=== PATIENT | female | born 1955 | race Caucasian/White ===

== ENCOUNTER → 2017-05-24 11:17 | Outpatient (CLI) | payer MEDICAID, OTHER, SELFPAY ==
[2017-05-24 14:48] LABS: Vitamin D,25 Hydroxy 20.1 ng/mL (29.95-100.01)
[2017-05-24 14:49] LABS: Anion Gap 6 (5-15); BUN 16 mg/dL (7-18); BUN/Creat Ratio 19.2 RATIO (10-20); Calcium,Total 9.5 mg/dL (8.5-10.1); Chloride 107 mmol/L (98-107); Cholesterol 210 mg/dL (200); Creatinine, Serum 0.83 mg/dL (0.55-1.02); EST Glomerular Filtration Rate 74 mL/min (>60); Est Glom Filt Rate - Afr Amer 89 mL/min (>60); Glucose 84 mg/dL (74-106); High Density Lipoprotein 104 mg/dL; Potassium 5.2 mmol/L (3.5-5.1); Sodium Level 142 mmol/L (136-145); Thyroid Stim Hormone (TSH) 3.02 uIU/mL (0.358-3.74); Triglycerides 99 mg/dL; Very Low Density Lipoprotein 20 mg/dL (5-40)
[2017-05-24 14:50] LABS: Absolute Lymphocyte Count 1.66 X10^3/ul (0.83-4.51); Absolute Neutrophil Count 4.1 X10^3/uL (2.0-7.7); Basophil# 0.04 X10^3/uL; Basophil% 0.6 % (0-1); Eosinophil# 0.29 X10^3/uL; Eosinophils% 4.3 % (0-5); Hematocrit 39.2 % (37-47); Hemoglobin 12.3 g/dl (12.0-15.0); Lymphocyte # 1.66 X10^3/ul (4.0); Lymphocyte % 24.9 % (19-41); Mean Corp Hgb Conc 31.4 g/gl (32-36); Mean Corpuscular Hgb 28.8 pg (27.0-32.0); Mean Corpuscular Volume 91.8 fL (81-99); Mean Platelet Vol. 12.1 fl (6.2-12.0); Monocyte# 0.58 X10^3/uL; Monocyte% 8.7 % (0-10); Neutrophil % 61.4 % (47-70); Platelet Count 235 K/mm3 (150-450); RBC Distribution Width CV 13.4 % (11.6-14.6); RBC Distribution Width SD 44.1 fl (35.1-43.9); Red Blood Count 4.27 M/mm3 (4.2-5.4); White Blood Count 6.7 K/mm3 (4.4-11.0)
[2017-05-24 14:58] LABS: POSITIVE COUNT NO; POSITIVE DIFFERENTIAL NO; POSITIVE MORPHOLOGY NO
== END ==
PROVIDERS: Family Provider Family Medicine; Visit Provider Family Medicine
DX: R53.83 Other fatigue (principal)
CPT/HCPCS: 36415; 80048; 80061; 82306; 84443; 85025

== ENCOUNTER → 2017-07-19 11:38 | Outpatient (CLI) | payer OTHER, SELFPAY ==
--- NOTE | 2017-07-19 11:50 | RAD_ITS ---
STUDY: X-RAY - RIGHT KNEE REASON FOR EXAM: Female, 61 years old. Pain. TECHNIQUE: 4 view(s) of the knee. COMPARISON: None. FINDINGS: Normal visualized distal femur. Normal visualized proximal tibia and fibula. Normal proximal tibiofibular articulation. There is no demonstrated fracture. There is moderate to severe degenerative arthrosis of the medial femorotibial compartment with moderate joint space narrowing. There is mild to moderate degenerative arthrosis of the lateral femorotibial compartment. There is severe degenerative arthrosis of the patellofemoral articulation. There is a moderate volume joint effusion. The soft tissue structures are unremarkable. RAD/Knee 4 or More Views IMPRESSION: No acute fracture or dislocation. Moderate to severe degenerative changes. Joint effusion. Electronically Signed: Rojelio Murray MD at 13:20 EDT , Service support ,
== END ==
PROVIDERS: Family Provider Family Medicine; PCP Family Medicine; Visit Provider Family Medicine
DX: M25.561 Pain in right knee (principal)
CPT/HCPCS: 73564

== ENCOUNTER → 2017-12-01 11:04 | Outpatient (CLI) | payer OTHER, SELFPAY ==
[2017-12-01 12:38] LABS: Vitamin D,25 Hydroxy 22.2 ng/mL (29.95-100.01)
[2017-12-01 12:48] LABS: Anion Gap 8 (5-15); BUN 17 mg/dL (7-18); BUN/Creat Ratio 21.6 RATIO (10-20); Calcium,Total 9.8 mg/dL (8.5-10.1); Chloride 107 mmol/L (98-107); Cholesterol 197 mg/dL (200); Creatinine, Serum 0.79 mg/dL (0.55-1.02); EST Glomerular Filtration Rate 79 mL/min (>60); Est Glom Filt Rate - Afr Amer 95 mL/min (>60); Glucose 84 mg/dL (74-106); High Density Lipoprotein 108 mg/dL; Potassium 4.2 mmol/L (3.5-5.1); Sodium Level 141 mmol/L (136-145); Triglycerides 73 mg/dL; Very Low Density Lipoprotein 15 mg/dL (5-40)
== END ==
PROVIDERS: Family Provider Family Medicine; PCP Family Medicine; Visit Provider Family Medicine
DX: E55.9 Vitamin D deficiency, unspecified (principal); I10 Essential (primary) hypertension
CPT/HCPCS: 36415; 80048; 80061; 82306

== ENCOUNTER → 2018-05-31 10:57 | Outpatient (CLI) | payer OTHER, SELFPAY ==
[2013-12-16 11:15] VITALS: BMI 32.5
[2018-05-31 12:57] LABS: Vitamin D,25 Hydroxy 33.4 ng/mL (29.95-100.01)
[2018-05-31 13:01] LABS: BUN 18 mg/dL (7-18); Creatinine, Serum 0.78 mg/dL (0.55-1.02); EST Glomerular Filtration Rate 79 mL/min (>60); Glucose 94 mg/dL (74-106)
[2018-05-31 13:02] LABS: Anion Gap 6 (5-15); Calcium,Total 9.2 mg/dL (8.5-10.1); Chloride 110 mmol/L (98-107); Cholesterol 198 mg/dL (200); Est Glom Filt Rate - Afr Amer 96 mL/min (>60); High Density Lipoprotein 103 mg/dL; Potassium 4.1 mmol/L (3.5-5.1); Sodium Level 142 mmol/L (136-145); Thyroid Stim Hormone (TSH) 3.07 uIU/mL (0.358-3.74); Triglycerides 79 mg/dL; Very Low Density Lipoprotein 16 mg/dL (5-40)
== END ==
PROVIDERS: Family Provider Family Medicine; PCP Family Medicine; Referring Provider Family Medicine; Visit Provider Family Medicine
DX: I10 Essential (primary) hypertension (principal); E55.9 Vitamin D deficiency, unspecified; R61 Generalized hyperhidrosis
CPT/HCPCS: 36415; 80048; 80061; 82306; 84443

== ENCOUNTER → 2018-07-31 | Outpatient (CLI) | payer OTHER, SELFPAY ==
--- NOTE | 2018-07-31 10:37 | NEURO ---
NCS and/or EMG Patient Report Ordering Doctor: Altaf De La Garza DATE OF SERVICE: 07/31/18 This is a left upper extremity nerve conduction study performed on this 62-year-old female with a history of tingling in her left hand for several months. There is a history of carpal tunnel release on the right side. No neck pain. Healthy otherwise without a history of diabetes. Left upper extremity sensory and motor nerve conduction studies performed demonstrating prolongation of the median motor and sensory distal latencies with mild reduction in conduction velocity and mild reduction in amplitude. The ulnar motor and sensory and radial sensory responses are normal. The median and ulnar F-wave latencies are preserved. Impression abnormal nerve conduction study of the left upper extremity consistent with mild to moderate carpal tunnel syndrome but the left wrist.
== END | disposition home or self-care (01) ==
PROVIDERS: Family Provider Family Medicine; PCP Family Medicine; Referring Provider Family Medicine; Visit Provider Family Medicine
DX: R20.0 Anesthesia of skin (principal)
CPT/HCPCS: 95909

== ENCOUNTER → 2019-01-18 15:17 | Outpatient (CLI) | payer OTHER, SELFPAY ==
[2013-12-16 11:15] VITALS: BMI 32.5
[2019-01-18 18:25] LABS: Anion Gap 9 (5-15); BUN 17 mg/dL (7-18); Calcium,Total 9.6 mg/dL (8.5-10.1); Chloride 108 mmol/L (98-107); Cholesterol 192 mg/dL (200); Creatinine, Serum 0.81 mg/dL (0.55-1.02); EST Glomerular Filtration Rate 76 mL/min (>60); Est Glom Filt Rate - Afr Amer 92 mL/min (>60); Glucose 81 mg/dL (74-106); High Density Lipoprotein 110 mg/dL; Potassium 3.9 mmol/L (3.5-5.1); Sodium Level 145 mmol/L (136-145); Triglycerides 79 mg/dL; Very Low Density Lipoprotein 16 mg/dL (5-40)
== END ==
PROVIDERS: Family Provider Family Medicine; PCP Family Medicine; Referring Provider Family Medicine; Visit Provider Family Medicine
DX: I10 Essential (primary) hypertension (principal)
CPT/HCPCS: 36415; 80048; 80061

== ENCOUNTER → 2020-01-13 10:58 | Outpatient (CLI) | payer OTHER, SELFPAY ==
[2013-12-16 11:15] VITALS: BMI 32.5
[2020-01-13 13:23] LABS: Anion Gap 6 (5-15); BUN 19 mg/dL (7-18); BUN/Creat Ratio 23.9 RATIO (10-20); Calcium,Total 9.7 mg/dL (8.5-10.1); Chloride 109 mmol/L (98-107); Cholesterol 206 mg/dL (200); EST Glomerular Filtration Rate 77 mL/min (>60); Est Glom Filt Rate - Afr Amer 93 mL/min (>60); Glucose 90 mg/dL (74-106); High Density Lipoprotein 110 mg/dL; Potassium 4.4 mmol/L (3.5-5.1); Sodium Level 141 mmol/L (136-145); Triglycerides 74 mg/dL; Very Low Density Lipoprotein 15 mg/dL (5-40)
== END ==
PROVIDERS: PCP Family Medicine; Referring Provider Family Medicine; Visit Provider Family Medicine
DX: I10 Essential (primary) hypertension (principal)
CPT/HCPCS: 36415; 80048; 80061

== ENCOUNTER → 2020-10-13 14:32 | Outpatient (CLI) | payer MEDICARE, SELFPAY ==
[2013-12-16 11:15] VITALS: BMI 32.5
--- NOTE | 2020-10-13 14:45 | CT_ITS ---
STUDY: CT SCAN LOWER EXTREMITY RIGHT.[facility] protocol. REASON FOR EXAM: Female, 65 years old. UNILATERAL PRIMARY OSTEO RADIATION DOSAGE (If Supplied By Facility): CTDIvol = ( 18.83 ) mGy, DLP = ( 1246.44 ) mGycm. Individualized dose optimization techniques were used for this CT.? TECHNIQUE: Multiple axial tomographic images of the right lower extremity was performed without intravenous contrast administration. Sagittal and coronal reconstruction was obtained as well. COMPARISON: None. FINDINGS: Imaging of the right hip joint was obtained. No significant joint space narrowing is seen. No bony destruction. Imaging of the right knee joint was obtained. There is a marked degree of joint space narrowing and osteoarthritis involving the medial compartment of the knee joint with marginal spurring of the medial femoral condyle. There is also evidence of marginal spurring along the lateral femoral condyle and lateral tibial plateau. There is evidence of chondrocalcinosis. Prominent degenerative spur is seen along the posterior aspect of the distal femur. Marked degree of joint space narrowing with the spur formation of the patellofemoral joint. There are several well-circumscribed bony densities within the posterior knee joint suggestive of possible loose fragments. Small joint effusion. Imaging of the ankle joint was obtained. No significant abnormality is seen. CT/Extremity Lower without Contra IMPRESSION: Marked degree of the osteoarthritis and degenerative changes of the knee joint as described. Electronically Signed: Matt Bryant MD at 15:39 EDT , Service support ,
== END ==
PROVIDERS: PCP Family Medicine; Referring Provider Orthopaedic Surgery; Visit Provider Orthopaedic Surgery
DX: M17.11 Unilateral primary osteoarthritis, right knee (principal)
CPT/HCPCS: 73700

== ENCOUNTER 2020-11-02 05:28 | Day surgery (SDC) | payer MEDICARE, SELFPAY ==
--- NOTE | 2020-10-22 13:05 | EKG12_ITS ---
Test Reason : PREOP Blood Pressure : / mmHG Vent. Rate : 046 BPM Atrial Rate : 046 BPM P-R Int : 176 ms QRS Dur : 090 ms QT Int : 432 ms P-R-T Axes : 036 -19 000 degrees QTc Int : 378 ms Sinus bradycardia Otherwise normal ECG Confirmed by INGRID THORNTON, JUAN JOSÉ ([id number]), editor magazine CHRISTIAN KIRK ([id number]) on 10/26/2020 8:29:38 AM Referred By: Farshad Archer Confirmed By:JUAN JOSÉ QUINTERO MD
[2020-10-22 14:08] LABS: Hematocrit 38.4 % (37-47); Hemoglobin 12.5 g/dL (12.0-15.0); Mean Corp Hgb Conc 32.6 g/dL (32-36); Mean Corpuscular Hgb 28.9 pg (27.0-32.0); Mean Corpuscular Volume 88.9 fL (81-99); Mean Platelet Vol. 11.8 fl (6.2-12.0); Platelet Count 198 K/mm3 (150-450); RBC Distribution Width CV 13.2 % (11.6-14.6); RBC Distribution Width SD 42.5 fl (35.1-43.9); Red Blood Count 4.32 M/mm3 (4.2-5.4); White Blood Count 5.9 K/mm3 (4.4-11.0)
[2020-10-22 14:31] LABS: Anion Gap 4 (5-15); BUN 17 mg/dL (7-18); Calcium,Total 9.3 mg/dL (8.5-10.1); Chloride 109 mmol/L (98-107); Creatinine, Serum 0.65 mg/dL (0.55-1.02); EST Glomerular Filtration Rate 97 mL/min (>60); Est Glom Filt Rate - Afr Amer 117 mL/min (>60); Glucose 94 mg/dL (74-106); Potassium 4.1 mmol/L (3.5-5.1); Sodium Level 142 mmol/L (136-145)
[2020-11-02] VITALS (14 sets, daily range): BP systolic 126–152; BP diastolic 58–105; PULSE 63–85; RESP 16; TEMP 35.7–36.6; O2SAT 95–100; BMI 33.3
[2020-11-02] MEDS: Gabapentin 600 MG Tablet PO (05:30)
[2020-11-02] MEDS: Lactated Ringers 1,000 ML 100 ML IV ×2 (05:35→09:01)
[2020-11-02] MEDS: Acetaminophen 500 MG Tablet 1000 MG PO ×2 (06:22→14:42)
[2020-11-02 06:31] LABS: Bedside Glucose 142 mg/dL (70-110)
--- NOTE | 2020-11-02 07:30 | KNEE_PTH ---
PATIENT: ELO QU[place] [facility] [id number] AGE/SX: 65/F ROOM: RE11/02/[address]: Dr. Farshad Archer DO : 1955 BED: DIS: 11/02/2020 SPEC #: [id number] RECD: 11/02/20 10:19 STATUS: SAÚL REQ #: [id number] DYANA: 11/02/20 07:[address]: Farshad Archer DEPT: SURGICAL PATHOLOGY RECD BY: Stan Laguna ENTERED: 11/02/20 11:11 SP TYPE: TOTAL KNEE OTHR DR: Dr. Altaf De La Garza MD Tissues: Knee, NOS Procedures: Decalcification bone/plaque Surgery Specimen Level IV HEADER OPERATION: ERAS, total knee replacement robotic arm assist PRE-OP DIAGNOSIS: Primary osteoarthritis right knee TISSUE SUBMITTED: Soft tissue and bone right knee MICROSCOPIC DIAGNOSIS Bone and tissue of right knee, total knee resection: Severe degenerative joint disease. Mild synovial hyperplasia. AM:kia 11/05/2020 MICROSCOPIC DESCRIPTION Slides are reviewed. GROSS DESCRIPTION Received is one container designated bone and soft tissue right knee. The specimen consists of multiple fragments of alarcon-yellow bone measuring in aggregate 8 x 10 x 4 cm. Also in the specimen container are multiple fragments of yellow-white soft tissue measuring in aggregate 5 x 1.5 x 0.5 cm. A number of bony fragments contain articular surfaces consistent with tibial plateau and femoral condyle and displaying prominent osteophyte formation, eburnation, and bone erosion. Barge Loader sections are submitted in two cassettes as follows: 1 - bone after decalcification, 3 - soft tissue. / SJ:kia 11/02/20 TC:5 [facility]: [id number]
[2020-11-02] MEDS: dexAMETHasone 10 MG/ML Vial IV (07:45)
--- NOTE | 2020-11-02 08:49 | OP.PCM_ITS ---
Report of Operation Date of Procedure: 11/02/20 Pre-Operative Diagnosis: OA right knee Post-Operative Diagnosis: same Surgery/Procedure Performed:: Right TKR Description of Surgical Findings:: Report of Operation Date of Procedure: Preoperative Diagnosis: [ ] knee primary osteoarthritis Postoperative Diagnosis: [ ] knee primary osteoarthritis Operation: Robotic Assisted Knee Total Arthroplasty, [ ] knee Surgeon: Dr Farshad Archer DO Junior Software Developer: Kedar Ramirez PA-C Anesthesia: spinal Anesthesiologist: Italo Valentino M.D. Findings: Stable knee with good patella tracking Specimen(s): Bony cuts Complications: No intraoperative complications Estimated Blood Loss: 20 cc IV Fluids: 1400 cc crystalloid Implants Used: 1. Chantelle Triathlon press-fit CR size 5 femur 2. Chantelle Triathlon size 5 tibia 3. 32 mm patella 4. 9 mm CS polyethylene Brief History Operative Indications: [ (65 y/o female) ] with history of [ right ] knee osteoarthrosis with radiographic findings with loss of joint space, osteophyte formation and subchondral sclerosis. Failed conservative measures as mentioned in the H&P. Discussion of total knee arthroplasty as well as risk and benefits were discussed with the patient including but not limited to blood loss, DVTs, PEs, neurovascular damage, general risk of anesthesia including loss of life, and stiffness or instability were also discussed with the patient. Patient demonstrated understanding and was able to sign informed consent. Procedure: On the date of procedure, patient's [ right ] lower extremity was marked in the preoperative area. The patient was then taken back to the operating room where that patient was placed on the table in the supine position. All bony prominences were identified and well-padded. Anesthesia assumed control of the C-spine and airway throughout the remainder of the procedure. A tourniquet was placed on the [ right ] upper thigh and the leg was prepped in a sterile fashion. The surgeon then scrubbed at this time. Upon reentering the room, the [ right ] lower extremity was draped in a standard orthopedic fashion. A timeout was then called and everyone agreed upon the side, the site, the procedure to be performed, patient's identity and antibiotics given. Esmarch bandage was used to exsanguinate the extremity and the tourniquet was placed up to 250 mmHg with the knee in flexion. A midline skin incision was made and a sharp dissection was taken down through skin, subcutaneous tissue and fat. The standard medial parapatellar incision was made and the patella was subluxed laterally. An appropriate deep MCL release was done and the fat pad was resected. Our attention was then directed to the patella. The patella was everted and a flat resection was made. The knee was then flexed up and 2 femoral pins were placed inside the incision and 2 tibial pins were placed outside the incision in the medial tibia bicortically. Once this was completed, the 2 checkpoints in the femur and tibia were placed. Knee was then flexed up and the bony landmarks were registered. Once the was completed, the knee taken through range of motion and manually stressed allowing us to plan for an appropriate tibial cut. The robotic arm was brought into the field sterilely and checkpoint and saw were registered. Based on the patient's deformity, the tibial cut was made in [ 2 degrees varus ]. At this time, the tensioner was then placed in the joint and ligament tension was checked at 90 degrees and full extension. Based on the patient's ligamentous tension, appropriate adjustments were made to the operative plan and ligament releases were done. Once we were happy with our operative plan with balanced flexion and extension gaps, our attention was directed to the femur. The robot was brought into the field sterilely and registered. Posterior condylar cuts, anterior chamfer cuts and anterior cuts were appropriately made for a [ size 5 ] femur. When these were completed, the saws were switched out in the distal femoral and posterior chamfer cuts were made. Protecting the soft tissue throughout this time. A [size 5 ] base plate was selected. The knee was flexed to 90 degrees and soft tissues and posterior osteophytes were removed from the joint. 40 cc of the periarticular injection was injected into the posterior medial corner of the joint. The appropriate trials were then placed on the femur and tibia. A trial polyethylene was trialed to ensure proper balancing and stability of the knee. The appropriate tibial internal rotation was then marked with a bovie. Our attention was then directed to the patella. The lug holes were drilled and the patella trial was placed. Patellar tracking was checked and deemed appropriate. Once we were happy, lug holes were drilled for the femur and trial components were removed. The tibia was subluxed and pinned into place and the keel was punched and drilled appropriately. Final components were verified and opened. The wound was copiously irrigated with normal saline. The components were impacted into place with the tibia, femur and finally the patella. The trial poly component was placed and the knee was placed in full extension. The tracking, alignment and balance were verified and a [ 9 mm CS ] polyethylene component was placed. Once the final components were placed an Irrisept lavage was performed and the wound was copiously irrigated with normal saline solution and the periarticular injection was given. the wound was closed in a layer-lea fashion using #1 vicryl interrupted sutures for the arthrotomy, 2-0 interrupted vicryl suture for the subcuticular layer and abiola for final skin closure. A sterile compressive dressing was then placed. The patient was then awakened from anesthesia, transferred to the rfrankfort and transferred to the PACU for recovery. My physician emergency room physician assistant was a vital part of this case. He was important in appropriate retraction during the case, and protection of soft tissues during bony cuts. His intimate knowledge of the case and my steps aided in safe and expedient completion of the procedure as well as appropriate position of the leg during the case. He was also vital in assisting with closure under my direct supervision. Due to the complexity of this case, robotic arm was used to assist in the surgery to improve accuracy and clinical outcomes. Post-op Plan: DVT ppx; ASA 81 mg BID, thigh high compression stockings Follow up: in office in 2 weeks for wound check PT: to start POD #0 at hospital, outpatient PT should be arranged. Preoperative antibiotic: Ancef 2 grams IV Farshad Archer DO Surgeon: Farshad Archer yeast fermentation attendant: None (k) yeast fermentation attendant: Kedar Ramirez Type of Anesthesia: Spinal Anesthesiologist: Italo Valentino Estimated Blood Loss (mL): 20 cc Fluids Replaced: 1400 cc crystalloid Admit VTE Documentation VTE Present on Admission: No VTE Mechan Device Prophylaxis: SCD's and Thigh High DANIELLE Hose VTE Pharm Prophylaxis ordered?: Yes
--- NOTE | 2020-11-02 09:35 | RAD_ITS ---
INDICATION: POST OPERATIVE -- PORTABLE IN PACU EXAMINATION/TECHNIQUE: X-RAY - RIGHT XR Knee 1 or 2 Views 2 VIEWS COMPARISON: 07/19/2017. FINDINGS: SOFT TISSUES: Prominence of the overlying soft tissues visualized with air in the suprapatellar space and Hoffa''s pad and overlying surgical abiola consistent with postoperative changes. No evidence of suprapatellar effusion is seen. BONES/JOINTS: Unremarkable alignment of the femoral and tibial knee prosthesis. No evidence of surrounding lucency is visualized. No acute fracture or subluxation. No sclerotic or destructive changes observed. RAD/Knee 1 or 2 Views IMPRESSION: Unremarkable alignment of the right knee prosthesis. Electronically Signed: Corwin Leon MD at 10:11 EDT Tel , Service support ,
[2020-11-02] MEDS: Lactated Ringers 1,000 ML 999 ML IV (10:20)
--- NOTE | 2020-11-02 17:36 | SUR.PHASEII ---
Clarified discharge instructions with Dr Archer over phone. Pt to make PT appt for GHADA.
== END 2020-11-02 17:42 ==
LOC: SDC 05:29 → AC 05:30
PROVIDERS: PCP Family Medicine; Referring Provider Orthopaedic Surgery; Visit Provider Orthopaedic Surgery
PROC: 0SRC0JZ Replacement of Right Knee Joint with Synthetic Substitute, Open Approach (ICD-10-PCS; CPT 27447; principal; 2020-11-02 07:00)
DX: M17.11 Unilateral primary osteoarthritis, right knee (principal); M21.161 Varus deformity, not elsewhere classified, right knee; I10 Essential (primary) hypertension; F41.9 Anxiety disorder, unspecified; E78.00 Pure hypercholesterolemia, unspecified; M19.90 Unspecified osteoarthritis, unspecified site; F32.9 Major depressive disorder, single episode, unspecified; E66.9 Obesity, unspecified; Z68.32 Body mass index [BMI] 32.0-32.9, adult; Z79.899 Other long term (current) drug therapy
CPT/HCPCS: 01402; 27447; S2900; 36415; 73560; 80048; 82962; 83735; 85027; 87081; 88305; 88311; 93005; 97162; C1776; J7120; J2405

== ENCOUNTER → 2021-01-11 10:28 | Outpatient (CLI) | payer MEDICARE, SELFPAY ==
[2021-01-11 12:27] LABS: Anion Gap 5 (5-15); BUN 15 mg/dL (7-18); BUN/Creat Ratio 18.3 RATIO (10-20); Calcium,Total 9.4 mg/dL (8.5-10.1); Chloride 108 mmol/L (98-107); Cholesterol 209 mg/dL (200); Creatinine, Serum 0.82 mg/dL (0.55-1.02); EST Glomerular Filtration Rate 75 mL/min (>60); Est Glom Filt Rate - Afr Amer 90 mL/min (>60); Glucose 103 mg/dL (74-106); High Density Lipoprotein 89 mg/dL; Potassium 4.3 mmol/L (3.5-5.1); Sodium Level 141 mmol/L (136-145); Triglycerides 103 mg/dL; Very Low Density Lipoprotein 21 mg/dL (5-40)
== END ==
PROVIDERS: PCP Family Medicine; Visit Provider Family Medicine
DX: I10 Essential (primary) hypertension (principal)
CPT/HCPCS: 36415; 80048; 80061

== ENCOUNTER 2021-03-10 09:11 | Outpatient (CLI) | payer MEDICARE, SELFPAY ==
[2021-03-10 10:16] LABS: Absolute Lymphocyte Count 1.17 X10^3/uL (0.83-4.51); Absolute Neutrophil Count 7.1 X10^3/uL (2.0-7.7); Basophil# 0.05 X10^3/uL; Basophil% 0.5 % (0-1); Eosinophil# 0.29 X10^3/uL; Eosinophils% 3.1 % (0-5); Hematocrit 32.3 % (37-47); Lymphocyte # 1.17 X10^3/ul (0.83-4.51); Lymphocyte % 12.7 % (19-41); Mean Corpuscular Hgb 27.6 pg (27.0-32.0); Mean Corpuscular Volume 89.2 fL (81-99); Mean Platelet Vol. 9.7 fl (6.2-12.0); Monocyte# 0.59 X10^3/uL; Monocyte% 6.4 % (0-10); NRBC Flagged by Analyzer 0 % (0-5); Neutrophil # 7.07 X10^3/uL (2.7-7.7); Neutrophil % 76.6 % (47-70); Platelet Count 590 K/mm3 (150-450); RBC Distribution Width CV 14.8 % (11.6-14.6); RBC Distribution Width SD 47.9 fl (35.1-43.9); Red Blood Count 3.62 M/mm3 (4.2-5.4); White Blood Count 9.2 K/mm3 (4.4-11.0)
[2021-03-10 10:39] LABS: Anion Gap 9 (5-15); BUN 15 mg/dL (7-18); BUN/Creat Ratio 13.8 RATIO (10-20); Calcium,Total 9.5 mg/dL (8.5-10.1); Chloride 105 mmol/L (98-107); Creatinine, Serum 1.09 mg/dL (0.55-1.02); EST Glomerular Filtration Rate 54 mL/min (>60); Est Glom Filt Rate - Afr Amer 65 mL/min (>60); Glucose 94 mg/dL (74-106); Potassium 4.2 mmol/L (3.5-5.1); Sodium Level 141 mmol/L (136-145)
== END 2021-03-10 23:59 | disposition short-term general hospital (02) ==
LOC: MFPLAB 09:12
PROVIDERS: PCP Family Medicine; Referring Provider Family Medicine; Visit Provider Family Medicine
DX: N20.0 Calculus of kidney (principal)
CPT/HCPCS: 36415; 80048; 85025

== ENCOUNTER 2021-04-19 05:58 | Day surgery (SDC) | payer MEDICARE, SELFPAY ==
[2021-04-19 06:42] VITALS: BP 152/65; PULSE 52; RESP 16; TEMP 36.4; O2SAT 100; BMI 32.1
[2021-04-19] MEDS: Lactated Ringers 1,000 ML 15 ML IV ×2 (06:47→09:02)
[2021-04-19] MEDS: Lubricating Jelly 60 GM Tube 30 GM (07:38)
[2021-04-19] MEDS: Ciprofloxacin 400 MG/200 ML BAG 200 MG IV (07:50)
[2021-04-19 08:45] VITALS: BP 142/78; BP 152/68; PULSE 65; RESP 16; TEMP 35.7; O2SAT 97
--- NOTE | 2021-04-19 08:51 | PCM.DC ---
Discharge Instructions Diet Discharge Diet: No restrictions Activity Discharge Activity: Return to Normal Activity Lifting Restrictions: None Dressing / Incision Call your doctor if you observe: Fever of 101 or Higher, Inability to urinate and Inability to have a bowel movement Follow Up Care Please Follow Up With: Desiree Mcknight MD When: Call the office for appointment for stent removal Monday or Monday. Test Results: Test results from this visit will be discussed in further detail at your follow-up appointment, if applicable. Discharge Plan Admission Attending Provider: Desiree Mcknight Primary Care Provider: Altaf De La Garza Discharge Orders/Prescriptions Prescriptions: New oxycodone-acetaminophen [oxycodone-acetaminophen] 1 TABLET tablet 2 tab PO Q8H PRN PRN (Reason: Pain) 7 Days Qty: 10 RF: 0 phenazopyridine [Pyridium] 200 MG tablet 200 mg PO TID PRN PRN (Reason: Bladder Spasms) 7 Days Qty: 30 RF: 0 sulfamethoxazole-trimethoprim [sulfamethoxazole-trimethoprim] 1 TABLET tablet 1 tab PO BID 3 Days Qty: 6 RF: 0 Continued metoprolol succinate 100 MG tablet 50 mg PO BID RF: 0 pravastatin 10 MG tablet 20 mg PO QHS RF: 0 sertraline [Zoloft] 50 MG tablet 50 mg PO DAILY RF: 0 aspirin 81 mg Tablet 81 mg PO DAILY RF: 0 Referrals / Follow Up: Altaf De La Garza MD [Primary Care Provider] - Disposition Disposition (needs filled in before D/C Order can be placed): Home, Self Care
--- NOTE | 2021-04-19 08:55 | OP.PCM_ITS ---
Problems Associated Problem List Diagnoses (1) Ureteral calculus: Report of Operation Date of Procedure: 04/19/21 Pre-Operative Diagnosis: Left ureteral calculus Post-Operative Diagnosis: Same Surgery/Procedure Performed:: Cystoscopy, left ureteroscopy, holmium laser lithotripsy, stone basket extraction, left ureteral stent change Surgeon: Desiree Mcknight Type of Anesthesia: General Specimen's removed: Stone fragments Description of Procedure: The patient is a 65-year-old female who had a left proximal ureteral calculus with urosepsis and underwent a cystoscopy with ureteral stent insertion in [place]. She now presents for definitive management of her stone. Informed consent was obtained. The patient was taken to the operating room and placed on the operating room table. Anesthesia monitored the head, neck, airway, IV access and vital signs throughout the case. Once anesthesia was appropriately administered, the patient was placed into dorsal lithotomy position was prepped and draped in usual sterile fashion. At this time the cystoscope was inserted through the urethra under direct visualization into the urinary bladder. The bladder mucosa in its entirety was visualized and found to be without evidence of mass, erythema, ulceration or other abnormality. The left ureteral stent was identif ied. A 0.035 Glidewire was passed alongside the stent into the renal pelvis as seen on fluoroscopy. The stent was grasped with grasping forceps and pulled to the urethral meatus where a wire was inserted through the stent into the renal pelvis. At this time a ureteral reaccessed sheath was inserted under fluoroscopic visualization over one of the wires. At this time the flexible ureteroscope was used to identify a large impacted proximal ureteral calculus. Laser lithotripsy was then performed and the stone was broken into small pieces which were stone basket retrieved and removed. After removal of all stone fragments that were seen, the ureteroscope was used to directly visualize the entire length of the ureter. The area of the impacted stone did not have evidence of perforation, but was edematous. There was no active bleeding. Following removal of the ureteroscope and reaccessed sheath, the cystoscope was used to place a six Brune[place] 26 cm JJ stent over the safety wire with good positioning in the renal pelvis as well as the urinary bladder. The patient's bladder was then emptied and the cystoscope was removed. The patient was awakened and taken to the recovery room in good condition. There were no complications during this procedure. Grafts/Implants Used: 6 x 26 JJ stent Complications None Admit VTE Documentation VTE Present on Admission: Yes VTE Mechan Device Prophylaxis: SCD's VTE Pharm Prophylaxis ordered?: No Reason prophylaxis not ordered:: Treatment Not Indicated
[2021-04-19 09:00] VITALS: BP 152/68; BP 154/71; PULSE 60; RESP 16; O2SAT 100
[2021-04-19 09:08] VITALS: BP 152/68; BP 159/67; PULSE 61; RESP 16; TEMP 36.1; O2SAT 99
[2021-04-19 10:20] VITALS: BP 152/68; BP 179/77; PULSE 60; RESP 16; TEMP 36.1; O2SAT 100
[2021-04-30 17:35] LABS: Source Left Ureter
== END 2021-04-19 23:59 | disposition home or self-care (01) ==
LOC: SDC 06:02 → AC 06:03
PROVIDERS: PCP Family Medicine; Referring Provider Urology; Visit Provider Urology
PROC: 0TJ98ZZ Inspection of Ureter, Via Natural or Artificial Opening Endoscopic (ICD-10-PCS; CPT 52352; principal; 2021-04-19 07:20)
DX: N20.1 Calculus of ureter (principal); I10 Essential (primary) hypertension; Z87.442 Personal history of urinary calculi; F41.9 Anxiety disorder, unspecified; M19.90 Unspecified osteoarthritis, unspecified site; F32.A Depression, unspecified; E78.00 Pure hypercholesterolemia, unspecified; Z79.82 Long term (current) use of aspirin; Z79.899 Other long term (current) drug therapy
CPT/HCPCS: 00910; 52356; 76000; 82360; J7120; C2617; J0744; J2405

== ENCOUNTER 2021-05-26 10:28 | Outpatient (CLI) | payer MEDICARE, SELFPAY ==
--- NOTE | 2021-05-26 10:30 | US_ITS ---
STUDY: RENAL ULTRASOUND - COMPLETE REASON FOR EXAM: Female, 65 years old. STONES TECHNIQUE: Ultrasound evaluation of the kidneys was performed with real-time and static zapata-scale imaging. COMPARISON: None. FINDINGS: RIGHT KIDNEY: Normal location of the right kidney, which is normal in size. The right kidney measures 10.7 x 4.9 x 5.3 cm. There is a normal cortex of the right kidney. The renal cortex measures 1.1 cm. There is no right renal mass or cyst. There are no right renal calculi. There is mild hydronephrosis. DISTAL RIGHT URETER: There is non-visualization of the distal right ureter. There is no demonstrated right ureterovesical junction calculus. There is a visualized right ureteral jet. LEFT KIDNEY: Normal location of the left kidney, which is normal in size. The left kidney measures 10.3 x 4.8 x 4.9 cm. There is a normal cortex of the left kidney. The renal cortex measures 1.2 cm. There is no left renal mass or cyst. There are no left renal calculi. There is no left hydronephrosis. DISTAL LEFT URETER: There is non-visualization of the distal left ureter. There is no demonstrated left ureterovesical junction calculus. There is a visualized left ureteral jet. BLADDER: The distended urinary bladder has a volume of 182.96 ml. There is a normal wall thickness of the distended urinary bladder. There is no demonstrated mass within the urinary bladder. There are no demonstrated bladder calculi. US/Kidney and Bladder IMPRESSION: Mild right hydronephrosis of indeterminate etiology. No renal calculi identified at this time. CT would be useful for further evaluation if clinically indicated. Electronically Signed: Enrico Bledsoe MD at 22:54 EDT ,
== END 2021-05-26 23:59 | disposition home or self-care (01) ==
LOC: US 10:29
PROVIDERS: PCP Family Medicine; Referring Provider Urology; Visit Provider Urology
DX: N20.0 Calculus of kidney (principal)
CPT/HCPCS: 76770

== ENCOUNTER → 2021-08-12 | Outpatient (CLI) | payer MEDICARE, SELFPAY ==
--- NOTE | 2021-08-12 12:12 | US_ITS ---
STUDY: RENAL ULTRASOUND - COMPLETE REASON FOR EXAM: Female, 65 years old. HYDRONEPHROSIS TECHNIQUE: Ultrasound evaluation of the kidneys was performed with real-time and static zapata-scale imaging. COMPARISON: 05/26/2021. FINDINGS: RIGHT KIDNEY: Normal location of the right kidney, which is normal in size. The right kidney measures 10.1 x 5.3 cm. There is a normal cortex of the right kidney. The renal cortex measures 1.7 cm. There is no right renal mass or cyst. There are no right renal calculi. There is mild hydronephrosis of the right kidney. DISTAL RIGHT URETER: There is non-visualization of the distal right ureter. There is no demonstrated right ureterovesical junction calculus. There is a visualized right ureteral jet. LEFT KIDNEY: Normal location of the left kidney, which is normal in size. The left kidney measures 9 x 4.5 cm. There is a normal cortex of the left kidney. The renal cortex measures 1.4 cm. There is no left renal mass or cyst. There are no left renal calculi. There is no left hydronephrosis. DISTAL LEFT URETER: There is non-visualization of the distal left ureter. There is no demonstrated left ureterovesical junction calculus. There is a visualized left ureteral jet. AORTA: There is obscuration of the abdominal aorta by overlying bowel gas I.V.C.: The IVC is obscured. BLADDER: The distended urinary bladder has a volume of 285 ml. There is a normal wall thickness of the distended urinary bladder. There is no demonstrated mass within the urinary bladder. There are no demonstrated bladder calculi. US/Kidney and Bladder IMPRESSION: There is mild hydronephrosis of the right kidney. This is a stable finding. Electronically Signed: Alexis Garcia MD at 21:04 EDT ,
== END | disposition home or self-care (01) ==
LOC: US 12:08
PROVIDERS: PCP Family Medicine; Visit Provider Urology
DX: N13.30 Unspecified hydronephrosis (principal)
CPT/HCPCS: 76770

== ENCOUNTER → 2021-09-24 | Outpatient (CLI) | payer MEDICARE, SELFPAY ==
--- NOTE | 2021-09-24 12:16 | NM_ITS ---
CLINICAL: 66-year-old female with left kidney ureteral obstruction. 99m Tc MAG3 DIURETIC RENAL SCINTIGRAPHY COMPARISON: Renal ultrasound report 08/12/2021 FINDINGS: Following the intravenous administration of 9.9 mCi of 99m Tc MAG3, renal images reveal: 1. The flow study demonstrates normal arterial phase distribution of the radiopharmaceutical to the right kidney. Flow to the left kidney is delayed and decreased. 2. Immediate static delayed nephrogram images depict prompt and homogeneous radiopharmaceutical concentration by the renal parenchyma of the right kidney. Collecting system activity is identified between 2 and 4 minutes post tracer administration in the right kidney and approximately 8 minutes post tracer injection in the left kidney. Uptake in the hypotrophic left kidney is delayed and decreased. Washout of the radiopharmaceutical is qualitatively normal in the right kidney and prolonged in the left kidney. 3. The [id number]-[id number] ratio of total renal parenchymal function was calculated to be 80/20. Furosemide 20 mg was administered intravenously. The post Lasix T ? washout of the bilateral collecting system activity was calculated to be < 10 minutes, (normal < 10 minutes). NM/Renal Scan w/ Pharm Intervent IMPRESSION: 1. ABNORMAL 99m Tc MAG3 RENAL IMAGING EXAMINATION WITH FUROSEMIDE. 2. There is renal parenchymal dysfunction identified in the left kidney. Preservation of right kidney renal parenchymal function is noted. 3. A normal response to LASIX administration is noted in both kidneys negating the presence of mechanical and/or functional obstruction. Electronically Signed: Timur Holley, at 20:16 EDT ,
== END | disposition home or self-care (01) ==
PROVIDERS: PCP Family Medicine; Referring Provider Urology; Visit Provider Urology
DX: N13.39 Other hydronephrosis (principal); Z87.442 Personal history of urinary calculi
CPT/HCPCS: 78708; A9562; J1940

== ENCOUNTER → 2021-10-21 | Outpatient (CLI) | payer MEDICARE, SELFPAY ==
--- NOTE | 2021-10-21 13:40 | CT_ITS ---
STUDY: CT ABDOMEN AND PELVIS WITHOUT CONTRAST REASON FOR EXAM: Female, 66 years old. KIDNEY STONE RADIATION DOSAGE (If Supplied By Facility): CTDIvol = ( 15.22 ) mGy, DLP = ( 772.10 ) mGycm TECHNIQUE: Transaxial images were obtained from the dome of the diaphragm to the symphysis pubis without oral contrast, and without intravenous contrast. Sagittal and coronal images were reconstructed. Individualized dose optimization techniques were used for this CT. COMPARISON: None. FINDINGS: Calcified granuloma in the posterior medial segment of the right lower lobe. Minimal degree of anterior pericardial thickening. There is an 8.5 mm cyst in the anterior superior aspect of the right lobe of the liver. Normal gallbladder and extrahepatic biliary system. There are multiple benign calcified granulomata of the spleen. Normal pancreas. Normal bilateral adrenal glands. Normal right kidney. There is a 3 mm calculus in the lower pole calyx of the left kidney. There is a small hiatal hernia. Normal small intestine. There are multiple colonic diverticula consistent with diverticulosis. The appendix is visualized and appears normal. There is scattered atherosclerotic calcification of the abdominal aorta, without a demonstrated aneurysm. Normal inferior vena cava. Normal retroperitoneum. Normal urinary bladder. Normal abdominal wall. There are degenerative changes of the visualized lumbar spine. CT/Abdomen/Pelvis without Cont IMPRESSION: Nonobstructive 3 mm calculus in the lower pole calyx of the left kidney. Calcified splenic granulomas. Small hepatic cyst. Electronically Signed: Matt Bryant MD at 14:15 EDT ,
== END | disposition home or self-care (01) ==
LOC: CT 13:39
PROVIDERS: PCP Family Medicine; Referring Provider Urology; Visit Provider Urology
DX: N13.2 Hydronephrosis with renal and ureteral calculous obstruction (principal)
CPT/HCPCS: 74176

== ENCOUNTER 2022-02-04 10:37 | Outpatient (CLI) | payer MEDICARE, SELFPAY ==
[2022-02-04 13:06] LABS: Anion Gap 6 (5-15); BUN 24 mg/dL (7-18); BUN/Creat Ratio 22.9 RATIO (10-20); Chloride 109 mmol/L (98-107); Cholesterol 218 mg/dL (200); Creatinine, Serum 1.05 mg/dL (0.55-1.02); EST Glomerular Filtration Rate 56 mL/min (>60); Est Glom Filt Rate - Afr Amer 67 mL/min (>60); Glucose 97 mg/dL (74-106); High Density Lipoprotein 105 mg/dL; Potassium 4.5 mmol/L (3.5-5.1); Sodium Level 143 mmol/L (136-145); Triglycerides 92 mg/dL; Very Low Density Lipoprotein 18 mg/dL (5-40)
== END 2022-02-04 23:59 | disposition home or self-care (01) ==
LOC: MFPLAB 10:40
PROVIDERS: PCP Family Medicine; Referring Provider Family Medicine; Visit Provider Family Medicine
DX: I10 Essential (primary) hypertension (principal)
CPT/HCPCS: 36415; 80048; 80061

== ENCOUNTER → 2022-05-16 | Outpatient (CLI) | payer MEDICARE, SELFPAY ==
--- NOTE | 2022-05-16 10:28 | RAD_ITS ---
STUDY: X-RAY - ABDOMEN/PELVIS REASON FOR EXAM: Female, 66 years old. Flank pain TECHNIQUE: Two AP supine views of the abdomen and pelvis. COMPARISON: None. FINDINGS: Normal visualized lung bases. There is an abundance of fecal material throughout the colon. There is no demonstrated free abdominal air. The visualized liver, spleen and kidneys are grossly normal in size and morphology. No calcifications noted overlying either renal shadow, or along the expected course of either ureter. However, one could be obscured by overlying bowel gas and stool Normal soft tissue structures. Normal visualized osseous structures. RAD/Abdomen Single View IMPRESSION: No acute findings, retained stool Electronically Signed: Gibran Bustos MD at 10:44 EDT ,
== END | disposition home or self-care (01) ==
PROVIDERS: PCP Family Medicine; Referring Provider Urology; Visit Provider Urology
DX: N20.0 Calculus of kidney (principal)
CPT/HCPCS: 74018

== ENCOUNTER → 2022-08-10 | Outpatient (CLI) | payer MEDICARE, SELFPAY ==
[2022-08-10 14:10] LABS: Anion Gap 4 (5-15); BUN 24 mg/dL (7-18); BUN/Creat Ratio 21.4 RATIO (10-20); Calcium,Total 10.2 mg/dL (8.5-10.1); Chloride 107 mmol/L (98-107); Creatinine, Serum 1.12 mg/dL (0.55-1.02); EST Glomerular Filtration Rate 52 mL/min (>60); Est Glom Filt Rate - Afr Amer 62 mL/min (>60); Glucose 98 mg/dL (74-106); Potassium 5.1 mmol/L (3.5-5.1); Sodium Level 140 mmol/L (136-145)
== END | disposition home or self-care (01) ==
LOC: MFPLAB 10:38
PROVIDERS: PCP Family Medicine; Visit Provider Family Medicine
DX: I10 Essential (primary) hypertension (principal)
CPT/HCPCS: 36415; 80048

== ENCOUNTER → 2023-02-06 | Outpatient (CLI) | payer MEDICARE, SELFPAY ==
[2023-02-06 13:43] LABS: Anion Gap 6 (5-15); BUN 27 mg/dL (7-18); BUN/Creat Ratio 24.5 RATIO (10-20); Calcium,Total 9.7 mg/dL (8.5-10.1); Chloride 105 mmol/L (98-107); Cholesterol 222 mg/dL (200); EST Glomerular Filtration Rate 53 mL/min (>60); Est Glom Filt Rate - Afr Amer 64 mL/min (>60); Glucose 96 mg/dL (74-106); High Density Lipoprotein 107 mg/dL; Potassium 4.7 mmol/L (3.5-5.1); Sodium Level 139 mmol/L (136-145); Triglycerides 102 mg/dL; Very Low Density Lipoprotein 20 mg/dL (5-40)
== END | disposition home or self-care (01) ==
LOC: MFPLAB 10:56
PROVIDERS: PCP Family Medicine; Visit Provider Family Medicine
DX: I10 Essential (primary) hypertension (principal)
CPT/HCPCS: 36415; 80048; 80061

== ENCOUNTER → 2023-08-09 | Outpatient (CLI) | payer MEDICARE, SELFPAY ==
[2023-08-09 14:00] LABS: ALB/GLOB Ratio 1.1 RATIO (0.9-2.4); AST(SGOT) 16 U/L (15-37); Alanine Aminotransfer ALT/SGPT 21 U/L (13-56); Albumin, Serum 3.6 g/dL (3.2-5.0); Alkaline Phosphatase 90 U/L (45-117); Anion Gap 4 (5-15); BUN 26 mg/dL (7-18); BUN/Creat Ratio 25.2 RATIO (10-20); Calcium,Total 9.8 mg/dL (8.5-10.1); Chloride 108 mmol/L (98-107); Cholesterol 215 mg/dL (200); Creatinine, Serum 1.03 mg/dL (0.55-1.02); EST Glomerular Filtration Rate 57 mL/min (>60); Est Glom Filt Rate - Afr Amer 69 mL/min (>60); Globulin 3.4 g/dL (2.2-4.2); Glucose 93 mg/dL (74-106); High Density Lipoprotein 103 mg/dL; Potassium 4.3 mmol/L (3.5-5.1); Sodium Level 140 mmol/L (136-145); Triglycerides 100 mg/dL; Very Low Density Lipoprotein 20 mg/dL (5-40)
== END | disposition home or self-care (01) ==
LOC: MFPLAB 10:30
PROVIDERS: PCP Family Medicine; Visit Provider Family Medicine
DX: I10 Essential (primary) hypertension (principal)
CPT/HCPCS: 36415; 80053; 80061

== ENCOUNTER → 2024-02-07 | Outpatient (CLI) | payer MEDICARE, SELFPAY ==
[2024-02-07 12:32] LABS: Anion Gap 6 (5-15); BUN 24 mg/dL (7-18); BUN/Creat Ratio 22.2 RATIO (10-20); Calcium,Total 9.7 mg/dL (8.5-10.1); Chloride 110 mmol/L (98-107); Cholesterol 189 mg/dL (200); Creatinine, Serum 1.08 mg/dL (0.55-1.02); EST Glomerular Filtration Rate 54 mL/min (>60); Est Glom Filt Rate - Afr Amer 65 mL/min (>60); Glucose 101 mg/dL (74-106); High Density Lipoprotein 96 mg/dL; Potassium 4.4 mmol/L (3.5-5.1); Sodium Level 140 mmol/L (136-145); Triglycerides 80 mg/dL; Very Low Density Lipoprotein 16 mg/dL (5-40)
== END | disposition home or self-care (01) ==
LOC: MFPLAB 10:52
PROVIDERS: PCP Family Medicine; Referring Provider Family Medicine; Visit Provider Family Medicine
DX: I10 Essential (primary) hypertension (principal)
CPT/HCPCS: 36415; 80048; 80061

== ENCOUNTER 2024-10-16 07:15 | Day surgery (SDC) | payer MEDICARE, SELFPAY ==
[2024-10-16] VITALS (7 sets, daily range): BP systolic 102–147; BP diastolic 43–89; PULSE 57–60; RESP 12–16; TEMP 36.1–36.4; O2SAT 93–97; BMI 34.5
--- OUTSIDE RECORDS SUMMARY | 2024-10-16 07:25 | XMS RPT_ITS | CCD ---
Author Organization [facility] Care Team Providers Care Learning Officer Name Role Phone Altaf Rose MD Primary Care Provider DEVEN ORTA Referring Unavailable MILTON, ALTAF Baez Primary Care Unavailable Altaf Rose MD Primary Care Provider [phone] DEVEN ORTA Attending Unavailable DANIELLE, DEVEN Rodriguez Referring Unavailable ROSE, ALTAF Baez Primary Care Unavailable DEVEN ORTA Referring Unavailable MILTON, ALTAF Baez Primary Care Unavailable DEVEN ORTA Attending Unavailable MILTON, ALTAF Baez Primary Care Unavailable DEVEN ORTA Attending Unavailable MILTON, ALTAF Baez Primary Care Unavailable PAP, SOTERO LANGLEY Referring Unavailable ROSE, ALTAF Baez Primary Care Unavailable PAP, SOTERO LANGLEY Referring Unavailable ROSE, ALTAF Baez Primary Care Unavailable Altaf Rose MD Primary Care Provider ALTAF ROSE Primary Care Unavailable PAP, SOTERO LANGLEY Referring Unavailable ROSE, ALTAF Baez Primary Care Unavailable PAP, SOTERO LANGLEY Attending Unavailable Roof ENGINEERING DOCUMENT CONTROL CLERK, Ronak Polanco Attending Unavailable Rose, Altaf Primary Care Unavailable Rose, Altaf Referring Unavailable Rose, Altaf Primary Care Unavailable Rose, Altaf Attending Unavailable Rose, Altaf Referring Unavailable RobothamVane Attending Unavailable Rose, Altaf Primary Care Unavailable Allergies Allergy Classification Reported Allergen(s) Allergy Type Date of Onset Reaction(s) Facility (20 sources) Penicillins; Translations: [PENICILLINS] Allergy to substance 10-11-[address] [facility] Work Phone: Medications Current Medications Medication Drug Class(es) Dates Sig (Normalized) Sig (Original) acetaminophen 325 mg oral tablet (15 sources) Start: 03-04-2021 take 2 tablets by mouth every four hours as needed acetaminophen (TYLENOL) 325 mg tablet Take 2 tablets by mouth every 4 hours as needed for fever (specify). 03/04/2021 Active Comment on above: Take 2 tablets by mo uth every 4 hours as needed for fever (specify). acetaminophen 325 mg / oxyCODONE hydrochloride 5 mg oral tablet (20 sources) Opioid Agonist Start: 04-19-2021 take 2 tablets by mouth every eight hours as needed Oxycodone-Acetamino phen Active 2 TABLET PO EVERY 8 HOURS NEEDED 10 April 19, 2021 Start: 03-04-2021 take 1 tablet by regino th every four hours as needed oxyCODONE-acetaminophen (PERCOCET) 5-325 mg tablet Indications: Acute pain of left shoulder , Ureteral calculus Take 1 tablet by mouth every 4 hours as needed for up to 10 doses. 10 tablet 03/04/2021 Active Comment on above: Take 1 tablet by regino th every 4 hours as needed for up to 10 doses. aspirin 81 mg oral tablet (20 sources) Platelet Aggregation Inhibitor, Nonsteroidal Anti-inflammatory Drug Start: 04-12-2021 take 81 mg by mouth once daily Aspirin Active 81 MG PO DAILY April 12, 2021 12:00am Start: 03-05-2021 take 1 tablet by regino th once daily aspirin 81 mg chewable tablet Take 1 tablet by mouth once daily. Follow up with pcp for refill recommendations 03/05/2021 Active Comment on above: Take 1 tablet by regino th once daily. Follow up with pcp for refill recommendations calcium carbonate 1500 mg / cholecalciferol 0.01 mg oral tablet (15 sources) Vitamin D Start: 014 take 1 tablet by mouth twice daily calcium carbonate 600 mg-cholecalciferol 400 units 600 mg-10 mcg (400 unit) tab Take 1 tablet by mouth twice daily. 11/28/2013 Active Comment on above: Take by mouth. Take 1 tablet by regino th twice daily. docosahexaenoic acid 120 mg / eicosapentaenoic acid 180 mg oral capsule (15 sources) Docosahexanoic Acid-Eicosapent 120-180 mg capsule Take 1,000 mg by mouth. Active Comment on above: Take 1,000 mg by regino th. lisinopril 10 mg oral tablet (15 sources) Angiotensin Converting Enzyme Inhibitor Start: 022 take 1 tablet by mouth once daily lisinopril (ZESTRIL, PRINIVIL) 10 mg tablet Take 10 mg by mouth once daily. 12/18/2021 Active Comment on above: Take 10 mg by mouth once daily. 24 hr metoprolol succinate 100 mg extended release oral tablet (20 sources) beta-Adrenergic Alayna Start: 014 take 50 mg by mouth twice daily Metoprolol Succinate Active 50 MG PO TWICE A DAY November 27, 2013 11:00pm Start: 10-11-2007 take 1 tablet by regino th twice daily, then take 1 tablet by mouth every twenty-four hours metoprolol succinate(TOPROL XL 50 MG 24 HR TAB) Take 50 mg by mouth twice daily. 0 10/11/2007 Active Start: 10-11-2007 metoprolol suc cinate(TOPROL XL 50 MG 24 HR TAB) Take one(1) tablet daily. 0 10/11/2007 Active Comment on above: Take one(1) tablet d aily. Take 50 mg by mouth twice daily. phenazopyridine hydrochloride 200 mg oral tablet (7 sources) Start: 04-19-19 take 1 tablet by mouth three times daily as needed Phenazopyridine (Pyridium) 200 MG tablet Active 200 MG PO 3 TIMES DAILY NEEDED 02 10April 19, 2021 12:00am pravastatin sodium 10 mg oral tablet (20 sources) HMG-CoA Reductase Inhibitor Start: 11-29-19 14 take 20 mg by mouth at bedtime Pravastatin Active 20 MG PO AT BEDTIME November 27, 2013 11:00pm take 20 mg by mouth once daily p ravastatin sodium (PRAVASTATIN ORAL) Take 20 mg by mouth once daily. Active Comment on above: Take 20 mg by mouth. Take 20 mg by mouth once daily. sertraline 50 mg oral tablet (20 sources) Serotonin Reuptake Inhibitor Start: 10-11-19 sertraline hcl(ZOLOFT 50 MG TAB) Take one(1) tablet daily. 0 10/11/2007 Active Comment on above: Take one(1) tablet d aily. sulfamethoxazole 800 mg / trimethoprim 160 mg oral tablet (7 sources) Dihydrofolate Reductase Inhibitor Antibacterial, Sulfonamide Antimicrobial Start: 04-19-19 take 1 tablet by mouth twice daily Sulfamethoxazole- Trimethoprim Active 1 TABLET PO TWICE A DAY 08 06April 19, 2021 12:00am tamsulosin hydrochloride 0.4 mg oral capsule (13 sources) alpha-Adrenergic Alayna Start: 03-05-20 take 1 capsule by mouth once daily tamsulosin (FLOMAX) 0.4 mg Take 1 capsule by mouth once daily. Follow up with Urology for refills 30 capsule 03/05/2021 Active Comment on above: Take 1 capsule by mo [facility] once daily. Follow up with Urology for refills Completed/Discontinued Medications Medication Drug Class(es) Dates Sig (Normalized) Sig (Original) Fish Oil-Dha-Epa (7 sources) Start: 11-28-2013 End: 12-18-2013 Fish Oil-Dha-Epa Discontinued 2 EACH PO DAILY November 28, 2013 10:07am December 18, 2013 12:37pm Start: 11-28-2013 End: 12-18-2013 Fish Oil-Dha-Epa Discontinue d 2 EACH PO DAILY November 27, 2013 11:00pm December 18, 2013 11:37am Start: 11-28-2013 End: 12-18-2013 Fish Oil-Dha-Epa Discontinue d 2 EACH PO DAILY November 28, 2013 12:00am December 18, 2013 12:37pm Problems Active Problems Problem Classification Problem Date Documented Da te Episodic/Chronic Essential hypertension (1 source) Essential (primary) hypertension; Translations: [Essential (primary) hypertension] Onset: 03-13-2024 Chronic Other connective tissue disease (15 sources) History of total knee arthroplasty; Translations: [Presence of right artificial knee joint] Onset: 11-10-2020 11-10-2020 Chronic Other screening for suspected conditions (not mental disorders or infectious disease) (16 sources) Patient encounter status; Translations: [Encounter for screening mammogram for malignant neoplasm of breast] Onset: 04-29-2022 Episodic Unclassified (1 source) Cough, unspecified; Translations: [Cough, unspecified] Onset: 01-21-2024 Past or Other Problems Problem Classification Problem Date Documented Date Episodic/Chronic Administrative/social admission (15 sources) Other reduced mobility; Translations: [Other specified conditions influencing health status] Onset: 11-10-2020 11-10-2020 Episodic Calculus of urinary tract (20 sources) Ureteric stone; Translations: [Calculus of ureter] Onset: 02-28-2021 Episodic Nonspecific chest pain (15 sources) Chest pain; Translations: [Chest pain, unspecified] Onset: 02-27-2021 02-27-2021 Episodic Other connective tissue disease (1 source) Weakness of right leg; Translations: [Other symptoms and signs involving the musculoskeletal system] Onset: 11-10-2020 11-10-2020 Episodic Other connective tissue disease (15 sources) Abnormal posture; Translations: [Abnormal posture] Onset: 12-04-2020 12-04-2020 Episodic Other connective tissue disease (14 sources) Other symptoms and signs involving the musculoskeletal system; Translations: [Other musculoskeletal symptoms referable to limbs] Onset: 11-10-2020 11-10-2020 Episodic Other hematologic conditions (15 sources) Raised cardiac enzyme or marker; Translations: [Other specified abnormalities of plasma proteins] Onset: 02-28-2021 02-28-2021 Episodic Other nervous system disorders (15 sources) Abnormal gait; Translations: [Unspecified abnormalities of gait and mobility] Onset: 11-10-2020 11-10-2020 Episodic Other non-traumatic joint disorders (15 sources) Joint stiffness; Translations: [Stiffness of unspecified joint, not elsewhere classified] Onset: 11-10-2020 11-10-2020 Episodic Results Test Name Value Interpretation Reference Range Facility [facility] 02-12-2024 CNOV Office Visit (ERNESTINA) SARA MERCADO ([id number]) 1955 F Date Time Provider Department 02/12/24 10:00 AM SOTERO RUIZ During your visit today, we recorded the following information about you: Temperature Pulse Blood pressure Weight 97.4 degrees 56/minute 118/74 101.6 kg Sotero Ruiz MD 02/12/2024 10:30 AM Signed Sara Mercado is a 68 year old female who presents for annual exam. 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 Recent breast biopsy showed fibroadenoma. [...] (specify). (Patient not taking: Reported on 04/26/2022) oxyCODONE-acetaminoph en (PERCOCET) 5-325 mg tablet Take 1 tablet [...] breast and pelvic exam BREAST: without masses FRUIT OR NUT FARMER: Vulva - normal, Vagina - normal - cervix parous, Pap done, Uterus - midplane, adnexa neg Assessment -- normal exam RTO one year Sotero Farshad Pap, MD Allergies As of Date: 02/12/2024 Noted Allergy Reaction PENICILLINS 10/11/2007 Date Reviewed: 02/12/2024 Reviewed by: Ekaterina Berrios MA - Fully Assessed Reason for Visit: Well Woman [1463] Primary Visit Diagnosis:Encounter for annual routine gynecological examination [Z01.419] Other Visit Diagnosis:Encounter for Papanicolaou smear for cervical cancer screening [Z12.4] Order(s):PAP TEST [QSV4314] Order #: [id number] Prescriptions as of 02/12/2024 - calcium carbonate [...] hours as needed for fever (specify). - oxyCODONE-acetaminoph en (PERCOCET) 5-325 mg tablet Take 1 tablet [...] Ureteral calculus [N20.1] 02/28/2021 Elevated troponin [R79.89] (more content not included)... Normal [facility] HISTORY PHYSICALon HISTORY PHYSICAL HNO ID: [id number] Author: SOTERO RUIZ MD Service: ? Author Type: Physician Type: H&P Filed: 02/12/2024 10:30 Note Text: Sara Mercado is a 68 year old female who presents for annual exam. 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 Recent breast biopsy showed fibroadenoma. [...] (specify). (Patient not taking: Reported on 04/26/2022) oxyCODONE-acetaminoph en (PERCOCET) 5-325 mg tablet Take 1 tablet [...] breast and pelvic exam BREAST: without masses FRUIT OR NUT FARMER: Vulva - normal, Vagina - normal - cervix parous, Pap done, Uterus - midplane, adnexa neg Assessment -- normal exam RTO one year Sotero Ruiz MD Normal [facility] PAP TESTon 02-12-2024 ADEQUACY Satisfactory for interpretation. Normal [facility] Comment on above: Order Comment: Speci thang Type: FLUID SPECIMEN Ordering Facility: [facility] Address: [address] [place] [address] Performed By: #### L [id number] #### [facility] CLIA [id number] [address] [place] [address] [place] CASE REPORT Normal [facility] Comment on above: Order Comment: Specmanuel desir Type: FLUID SPECIMEN Ordering Facility: [facility] Address: [address] [place] [address] Result Comment: Gyne cologic Cytology Report Case: [id number] Authorizing Provider: Sotero Ruiz MD Collected: 02/12/2024 10:32 AM Ordering Location: [facility] Obstetrics & Received: 02/12/2024 01:19 PM Gynecology First Screen: Denice, Jaz, CT, ASCP Specimen: Pap Test, ThinPrep, Cervix Performed By: #### L [id number] #### [facility] CLIA [id number] [address] [place] CLINICAL HISTORY, CYTOLOGY, FRUIT OR NUT FARMER Menopausal Normal [facility] Comment on above: Order Comment: Speci thang Type: FLUID SPECIMEN Ordering Facility: [facility] Address: [address] [place] [address] Performed By: #### L [id number] #### [facility] CLIA [id number] [address] CYTOLOGY PAP OTHER INTERPRETATION Atrophic specimen. [facility] Comment on above: Order Comment: Speci men Type: FLUID SPECIMEN Ordering Facility: [facility] Address: [address] [place] [address] Performed By: #### L [id number] #### [facility] CLIA [id number] [address] [place] [address] FINAL PERFORMING LAB Normal [facility] Comment on above: Order Comment: Speci men Type: FLUID SPECIMEN Ordering Facility: [facility] Address: [address] [place] [address] Result Comment: Tech nical component, vehicle maintenance technician screening performed at [facility], [address] [place] [address] CLIA# [id number] Diagnostic interpretation performed at [facility], [address] [place] [address] CLIA# [id number] Elevator Erector: José Miguel Herrera M.D. Performed By: #### L [id number] #### [facility] CLIA [id number] [address] [place] [address] INTERPRETATION, CYTOLOGY, FRUIT OR NUT FARMER [facility] Comment on above: Order Comment: Speci men Type: FLUID SPECIMEN Ordering Facility: [facility] Address: [address] [place] [address] Result Comment: Nega tive for intraepithelial lesion or malignancy. Performed By: #### L [id number] #### [facility] CLIA [id number] [address] [place] [address] PAP DISCLAIMER COMMENT The Pap Smear is a screening test for cervical cancer. False negative results occur with all screening tests, emphasizing the need for rescreening at recommended intervals, and clinical correlation. [facility] Comment on above: Order Comment: Speci men Type: FLUID SPECIMEN Ordering Facility: [facility] Address: [address] [place] [address] Performed By: #### L [id number] #### [facility] CLIA [id number] [address] [id number] [place] PAP EXCAVATOR BACKHOE OPERATOR COMMENT This specimen has been analyzed by the ThinPrep Imaging System, an automated imaging and review system, which assists the laboratory in evaluating cells on ThinPrep Pap tests. Following automated imaging, selected camacho from every slide are reviewed by a vehicle maintenance technician. Normal [facility] Comment on above: Order Comment: Speci men Type: FLUID SPECIMEN Ordering Facility: [facility] Address: [address] [address] Performed By: #### L [id number] #### [facility] CLIA [id number] [address] Basic Metabolic Profile (BMP )on 02-07-2024 BUN/CRE 22.2 RATIO High 10-20 [facility] Comment on above: Order Comment: LIPID Performed By: #### L 500.4100, L500.2500 #### [facility] [address] [place], [address] CA,Total 9.7 mg/dL Normal 8.5-10.1 [facility] Comment on above: Order Comment: LIPID Performed By: #### L 500.4100, L500.2500 #### [facility] [address] [place], [address] Chloride [Moles/Vol] 110 mmol/L High 98-107 [facility] Comment on above: Order Comment: LIPID Performed By: #### L 500.4100, L500.2500 #### [facility] [address] [place], [address] CO2 [Moles/Vol] 25.0 mmol/L Normal 21.0-32.0 [facility] Comment on above: Order Comment: LIPID Performed By: #### L 500.4100, L500.2500 #### [facility] [address] [place], [address] Creatinine [Mass/Vol] 1.08 mg/dL High 0.55-1.02 [facility] Comment on above: Order Comment: LIPID Result Comment: The validity of the calculated GFR GFRAA in patients over 70 years has not been determined. Clinical correlation is essential. Performed By: #### L 500.4100, L500.2500 #### [facility] [address] [place], [address] EST GFR - AA 65 mL/min Normal >60 [facility] Comment on above: Order Comment: LIPID Result Comment: Afri can Macedonian GFR Calc Performed By: #### L 500.4100, L500.2500 #### [facility] [address] [place], [address] GAP 6 Normal 5-15 [facility] Comment on above: Order Comment: LIPID Performed By: #### L 500.4100, L500.2500 #### [facility] [address] [place], [address] GFR/1.73 sq M.predicted among non-blacks MDRD (S/P/Bld) [Vol rate/Area] 54 mL/min/{1.73_m2} Low >60 [facility] Comment on above: Order Comment: LIPID Result Comment: Non- GFR Calc Performed By: #### L 500.4100, L500.2500 #### [facility] [address] [place], [address] Glucose [Mass/Vol] 101 mg/dL Normal 74-106 [facility] Comment on above: Order Comment: LIPID Result Comment: Fast ing Glucose result from 100 to 125 mg/dL suggests IMPAIRED HOMEOSTASIS per A.D.A. criteria. Performed By: #### L 500.4100, L500.2500 #### [facility] [address] [place], [address] Potassium [Moles/Vol] 4.4 mmol/L Normal 3.5-5.1 [facility] Comment on above: Order Comment: LIPID Performed By: #### L 500.4100, L500.2500 #### [facility] [address] [place], [address] Sodium [Moles/Vol] 140 mmol/L Normal 136-145 [facility] Comment on above: Order Comment: LIPID Performed By: #### L 500.4100, L500.2500 #### [facility] [address] [place], [address] Urea nitrogen [Mass/Vol] 24 mg/dL High 7-18 [facility] Comment on above: Order Comment: LIPID Performed By: #### L 500.4100, L500.2500 #### [facility] [address] [place], [address] Lipid Profileon 02-07-2024 Cholesterol [Mass/Vol] 189 mg/dL Normal 200 [facility] Comment on above: Order Comment: LIPID Result Comment: <200 mg/dL Desirable 200-240 mg/dL Borderline >240 mg/dL High Risk Performed By: #### L 500.4100, L500.2500 #### [facility] [address] [place], [address] Cholesterol in HDL [Mass/Vol] 96 mg/dL Normal [facility] Comment on above: Order Comment: LIPID Result Comment: The drugs N-Acetylcysteine and Metamizole may falsely depress this assay. Reference Range HDL <40 mg/dL Low HDL Cholesterol HDL >or= 60 mg/dL High HDL Cholesterol Performed By: #### L 500.4100, L500.2500 #### [facility] [address] [place], [address] Cholesterol in LDL [Mass/Vol] 77 mg/dL Normal 0-130 [facility] Comment on above: Order Comment: LIPID Performed By: #### L 500.4100, L500.2500 #### [facility] [address] [place], [place], [address] Cholesterol in VLDL [Mass/Vol] 16 mg/dL Normal 5-40 [facility] Comment on above: Order Comment: LIPID Performed By: #### L 500.4100, L500.2500 #### [facility] [address] [place], [place], [address] Triglyceride [Mass/Vol] 80 mg/dL Normal [facility] Comment on above: Order Comment: LIPID Result Comment: The drugs N-Acetylcysteine and Metamizole may falsely depress this assay. Serum Triglycerides Reference Interval Normal <150 mg/dL Borderline high 150 - 199 mg/dL High 200 - 499 mg/dL Very High > or = 500 mg/dL Performed By: #### L 500.4100, L500.2500 #### [facility] [address] [place], [place], [address] Urgent Care Visit Reporton 1 03-22-2023 Urgent Care Visit Report [facility] [address], [address] [place], [place] [address] OFFICE VISIT Date of Service: 01/21/24 MR#: [id number] Acct: [id number] Name: SARA MERCADO Rep #: [id number] : 1955 Provider: NIURKA barcenas Age/Sex: 68/F Location: [facility] Status: Signed Intake Vital Signs 04/19/21 06:42 Height 5 ft 8 in Intake Visit Reasons: Cough Chief Complaint: cough, congest, rib soreness Automatic Transmission Mechanic Required: No Is patient in pain?: No Allergies Penicillins Allergy (Verified 01/21/24 10:30) Rash Is last menstrual period known: No Post menopausal: Yes Patient : No Have you fallen in the past year?: No Nurse's Note: cough, congest, rib soreness x 48 hours. denies fever, [place], mucus, ST. tried dayquil/nyquil without relief. declines viral testing. [facility] Medical History Ureteral calculus Alcohol use Redness of skin Kidney stones Wears glasses Depression Anxiety Arthritis High cholesterol Non-smoker Leg cramps History of pain when walking Hypertension Hx of fracture of leg Surgical History History of total right knee replacement Hx of tubal ligation Hx of wisdom tooth extraction Hx of breast biopsy Hx of section Hx of melanoma excision History of carpal tunnel release History of total left knee replacement Family History (Updated 01/21/24 @ 10:32 by Ame Lord) Other CVA (cerebral vascular accident) Cancer Hypertension Social History Smoking Status: Never smoker HPI HPI Chief Complaint: cough, congest, rib soreness Details: SARA MERCADO, is a 68 F who presents to the office today for concerns regarding cough, congestion and rib soreness over the last 48 hours. She states her symptoms have been ongoing for 3 days. She states receiving Flu and COVID vaccination. She denies respiratory testing. She denies fever, headache, mucus production, or sore throat. She states working at a [employer] and is concerned about unknown sick contacts. ROS Const Constitutional: Positive for body ache; No chills, fatigue, fever(s), headache(s) or change in appetite Eyes Eyes: No blurry vision, change in vision, double vision, irritation, discharge, vision loss, dry eyes, bulging eyes, floaters, visual disturbances, eye pain, Light sensitivity, spots in vision, tunnel vision or other ENT ENT: Positive for sore throat (scratchy); No ear or mastoid pain, ear discharge, ear pressure, tinnitus, dizziness/vertigo, nosebleed/epistaxis, nasal congestion, nose pain, sinus pressure, sinus pain, nasal discharge, post nasal drip, headache(s), facial pain, dental pain, difficulty swallowing, bad breath, hoarseness, lip swelling, mouth lesions, mouth pain, neck pain, tongue swelling or throat swelling Resp Respiratory: Positive for cough, chest congestion and pain with cough (rib pain); No change in phlegm color, hemoptysis, pain on inspiration, shortness of breath, stridor or wheezing Cardio Cardiology: No chest pain at rest, chest pain with exertion, shortness of breath, dyspnea on exertion or lightheadedness Gastro GI: No abdominal pain, change in bowel habits, constipation, diarrhea, difficulty swallowing, nausea/dyspepsia or vomiting Genitourinary-Female: No burning urination or urinary frequency Musc Musculoskeletal: No joint pain or neck pain Skin Skin: No rash Neuro Neurology: No headache(s) or visual disturbances Psych Psychiatric: No change in appetite Endo Endocrine: No fatigue Aller/Imm Allergy/Immunologic: No lip swelling, throat swelling, tongue swelling or wheezing Exam Const General: cooperative, healthy appearing, comfortable and no acute distress Orientation: alert, awake and oriented x3 HENMT Head: normal to inspection and normocephalic Ears: hearing grossly normal bilaterally, external ears normal and TM's normal bilaterally Nose: external nose normal, nares normal and no nasal discharge Face and sinus: normal facial exam and sinuses nontender Mouth: oral mucosae normal, lip normal, tongue normal, oropharynx normal and moist mucous membranes Throat: posterior oropharynx normal, tonsils normal, uvula midline and no postnasal drainage Eyes General: appearance normal, both eyes and all related structures Neck Neck: normal visual inspection and no lymphadenopathy Carotids: normal carotid upstroke Lymphatic: no lymphadenopathy noted Chest Chest palpation inspection: normal inspection of the chest Resp Effort Inspection: normal respiratory effort, able to speak in complete sentences, symmetric chest movement, no cough and no stridor Auscultation: Bilateral: Clear to Auscultation Cardio Rate: other Rhythm: regular rhythm Heart Sounds: S1 nor (more content not included)... Normal [facility] 11-29-2023 [facility] HNO ID: [id number] Author: COORDINATOR, MAMMOGRAPHY, ? Service: ? Author Type: Physician Type: Letter Filed: 11/29/2023 12:31 Note Text: [address] [address] November 29, 2023 PID: [id number] [place] [address] Dear Ms. Mercado, We are pleased to inform you that the results of your recent breast imaging exam on 11/28/2023 are normal. Breast tissue can be either dense or not dense. Dense tissue makes it harder to find breast cancer on a mammogram and also raises the risk of developing breast cancer. Your breast tissue is not dense. Talk to your healthcare provider about breast density, risks for breast cancer, and your individual situation. Early detection of cancer is very important. We also understand recommendations regarding breast cancer screening are controversial. Please discuss with your primary care provider which strategy is best for you and whether a mammogram is right for you. Your imaging studies and report will be kept on file at [facility] as part of your permanent medical record and are available for your continuing care. Thank you for allowing us to help in meeting your health care needs. Sincerely, Dr. Deutsch Interpreting Radiologist [facility] (Normal over 40) Normal [facility] DBT Breast - bilateral scree nury 11-29-2023 IMPRESSION: NEGATIVE There is no mammographic evidence of malignancy. A 1 year screening mammogram is recommended. Mj reyes/roberto carlos:11/29/2023 12:31:09 Sales Forecast Analyst(s): Roger Moreira (Nestor)(M), [facility] letter sent: Normal over 40 Mammogram BI-RADS: Category 1: Negative Multiple national specialty organizations have released breast cancer screening guidelines for women at average risk for developing breast cancer - guidelines that are based on both evidence and opinion, yet differ on when to start and how often to screen for breast cancer. With representation from Breast Imaging, Internal Medicine, Women's Health, Family Medicine, and Medical/Surgical Oncology, the [facility] has carefully reviewed the data and reached the following consensus: 1) All women should engage in shared decision-making with their providers to decide when to start and how often to screen; 2) All women should have the opportunity to start screening mammography at age 40; 3) For women ages 45-55, we recommend annual screening mammograms; 4) For women ages 55 and over, we support both the transition from an annual to a biennial interval if this aligns more with patient's values and preferences, or continuation with annual screening; 5) All women should discuss with their providers when to stop screening mammograms. Environmental Studies Professor: Roberto Carlos Transcribe Date/Time: Nov 28 2023 10:27A Dictated by : MJ DEUTSCH MD This examination was interpreted and the report reviewed and electronically signed by: MJ DEUTSCH MD on Nov 29 2023 12:31PM [facility] * * *Final Report* * * DATE OF EXAM: Nov 28 2023 10:52AM LDW 0582 - BLAIR SCREENING W KARISSA / PROCEDURE REASON: Breast screening * * * * Physician Interpretation * * * * #[id number] - BLAIR SCREENING W KARISSA BILATERAL DIGITAL SCREENING MAMMOGRAM TOMOSYNTHESIS WITH CAD: 11/28/2023 HISTORY: / Screening Mammogram-Patient reports NO symptoms. RESULT: TECHNIQUE: The study was acquired using full field digital technology and interpreted from soft copy. Digital Breast Tomosynthesis (DBT) images were obtained and used to assist in the interpretation of this examination. Current study was also evaluated with a Computer Aided Detection (CAD). Comparison is made to exams dated: 11/23/2022 mammogram - [facility], 05/16/2022 mammogram - [facility], 04/20/2022 mammogram - [facility], 02/24/2022 mammogram, 02/16/2021 mammogram, and 02/13/2020 mammogram - [facility]. There are scattered areas of fibroglandular density. There is a biopsy clip in the right breast. No significant masses, calcifications, or other findings are seen in either breast. There has been no significant interval change. [facility] Provider, Alfredo Morrow [facility] - 11/29/2023 * * *Final Report* * * DATE OF EXAM: Nov 28 2023 10:52AM LDW 0582 - BLAIR SCREENING W KARISSA / PROCEDURE REASON: Breast screening * * * * Physician Interpretation * * * * #[id number] - BLAIR SCREENING W KARISSA BILATERAL DIGITAL SCREENING MAMMOGRAM TOMOSYNTHESIS WITH CAD: 11/28/2023 HISTORY: / Screening Mammogram-Patient reports NO symptoms. RESULT: TECHNIQUE: The study was acquired using full field digital technology and interpreted from soft copy. Digital Breast Tomosynthesis (DBT) images were obtained and used to assist in the interpretation of this examination. Current study was also evaluated with a Computer Aided Detection (CAD). Comparison is made to exams dated: 11/23/2022 mammogram - [facility], 05/16/2022 mammogram - [facility], 04/20/2022 mammogram - [facility], 02/24/2022 mammogram, 02/16/2021 mammogram, and 02/13/2020 mammogram - [facility]. There are scattered areas of fibroglandular density. There is a biopsy clip in the right breast. No significant masses, calcifications, or other findings are seen in either breast. There has been no significant interval change. IMPRESSION IMPRESSION: NEGATIVE There is no mammographic evidence of malignancy. A 1 year screening mammogram is recommended. Mj reyes/roberto carlos:11/29/2023 12:31:09 Sales Forecast Analyst(s): Roger Moreira (Nestor)(M), [facility] letter sent: Normal over 40 Mammogram BI-RADS: Category 1: Negative Multiple national specialty organizations have released breast cancer screening guidelines for women at average risk for developing breast cancer - guidelines that are based on both evidence and opinion, yet differ on when to start and how often to screen for breast cancer. With representation from Breast Imaging, Internal Medicine, Women's Health, Family Medicine, and Medical/Surgical Oncology, the [facility] has carefully reviewed the data and reached the following consensus: 1) All women should engage in shared decision-making with their providers to decide when to start and how often to screen; 2) All women should have the opportunity to start screening mammography at age 40; 3) For women ages 45-55, we recommend annual screening mammograms; 4) For women ages 55 and over, we support both the transition from an annual to a biennial interval if this aligns more with patient's values and preferences, or continuation with annual screening; 5) All women should discuss with their providers when to stop screening mammograms. Environmental Studies Professor: Roberto Carlos Transcribe Date/Time: Nov 28 2023 10:27A Dictated by : MJ DEUTSCH MD This examination was interpreted and the report reviewed and electronically signed by: MJ DEUTSCH MD on Nov 29 2023 12:31PM EST [facility] DBT Breast - bilateral scree ningOrdered By: [facility] Provider on 11-29-[address] [facility] DBT Breast - bilateral scree nury 11-28-2023 Radiology Study observation (narrative) Bashir gallegos [facility] BLAIR SCREENING W TOMOon 11-27 BLAIR SCREENING W KARISSA * * *Final Report* * * DATE OF EXAM: Nov 28 2023 10:52AM LDW 0582 - [facility] SCREENING W KARISSA / PROCEDURE REASON: Breast screening * * * * Physician Interpretation * * * * #[id number] - [facility] SCREENING W KARISSA BILATERAL DIGITAL SCREENING MAMMOGRAM TOMOSYNTHESIS WITH CAD: 11/28/2023 HISTORY: / Screening Mammogram-Patient reports NO symptoms. RESULT: TECHNIQUE: The study was acquired using full field digital technology and interpreted from soft copy. Digital Breast Tomosynthesis (DBT) images were obtained and used to assist in the interpretation of this examination. Current study was also evaluated with a Computer Aided Detection (CAD). Comparison is made to exams dated: 11/23/2022 mammogram - [facility], 05/16/2022 mammogram - [facility], 04/20/2022 mammogram - [facility], 02/24/2022 mammogram, 02/16/2021 mammogram, and 02/13/2020 mammogram - [facility]. There are scattered areas of fibroglandular density. There is a biopsy clip in the right breast. No significant masses, calcifications, or other findings are seen in either breast. There has been no significant interval change. IMPRESSION: NEGATIVE There is no mammographic evidence of malignancy. A 1 year screening mammogram is recommended. Mj reyes/roberto carlos:11/29/2023 12:31:09 Sales Forecast Analyst(s): Roger Moreira (Nestor)(M), [facility] letter sent: Normal over 40 Mammogram BI-RADS: Category 1: Negative Multiple national specialty organizations have released breast cancer screening guidelines for women at average risk for developing breast cancer - guidelines that are based on both evidence and opinion, yet differ on when to start and how often to screen for breast cancer. With representation from Breast Imaging, Internal Medicine, Women's Health, Family Medicine, and Medical/Surgical Oncology, the [facility] has carefully reviewed the data and reached the following consensus: 1) All women should engage in shared decision-making with their providers to decide when to start and how often to screen; 2) All women should have the opportunity to start screening mammography at age 40; 3) For women ages 45-55, we recommend annual screening mammograms; 4) For women ages 55 and over, we support both the transition from an annual to a biennial interval if this aligns more with patient's values and preferences, or continuation with annual screening; 5) All women should discuss with their providers when to stop screening mammograms. Environmental Studies Professor: Roberto Carlos Sweeney Date/Time: Nov 28 2023 10:27A Dictated by : MJ DEUTSCH MD This examination was interpreted and the report reviewed and electronically signed by: MJ DEUTSCH MD on Nov 29 2023 12:31PM EST [id number] N [facility] CNPN Telephone (AGOBST) SARA MERCADO ([id number]) 1955 F Date Time Provider Department 10/23/23 SOTERO RUIZ During your visit today, we recorded the following information about you: Jack Nielson RN 10/23/2023 2:19 PM Signed Order pended. Thank you, TOM Brian: This pt is Pap's in [place]-Annual schdld 02/12/24 (medicare pt) but mammo w/ karissa is due 11/24/23-She had spcl imaging and a biopsy since Jack Nielson RN 10/30/2023 2:[address] Ruiz signed order. Jack Nielson RN Allergies As of Date: 10/23/2023 Noted Allergy Reaction PENICILLINS 10/11/2007 Date Reviewed: 05/23/2022 Reviewed by: Ekaterina Fritz LPN - Fully Assessed Reason for Visit: Orders [681] Primary Visit Diagnosis:Breast screening [Z12.39] Order(s):BLAIR SCREENING W KARISSA [[id number]] Order #: [id number] FUTURE Prescriptions as of 10/30/2023 - calcium carbonate 600 mg-cholecalciferol 400 units [...] hours as needed for fever (specify). - oxyCODONE-acetaminoph en (PERCOCET) 5-325 mg tablet Take 1 tablet [...] tablet daily. Problem List As Of Date 10/23/2023 Noted Resolved Abnormality of gait [R26.9] 11/10/2020 Total knee replacement status, right [Z96.651] 11/10/2020 Weakness of right leg [R29.898] 11/10/2020 Stiffness of joint [M25.60] 11/10/2020 Impaired functional mobility, balance, gait, an*11/10/2020 Abnormal posture [R29.3] 12/04/2020 Chest pain [R07.9] 02/27/2021 Ureteral calculus [N20.1] 02/28/2021 Elevated troponin [R79.89] 02/28/2021 Encounter Status:Closed by JACK NIELSON on 10/30/23 Normal [facility] Basophil percentageOrdered B y: Altaf Rose on 02-06-2023 Chloride [Moles/Vol] 105 mmol/L 98-107 [facility] Cholesterol [Mass/Vol] 222 mg/dL <200 [facility] Comment on above: <200 mg/dL Desirable 200-240 mg/dL Borderline >240 mg/dL High Risk Glucose [Mass/Vol] 96 mg/dL 74-106 [facility] Potassium [Moles/Vol] 4.7 mmol/L 3.5-5.1 [facility] Sodium [Moles/Vol] 139 mmol/L 136-145 [facility] Triglyceride [Mass/Vol] 102 mg/dL <199 [facility] Comment on above: The drugs N-Acetylcy steine and Metamizole may falsely depress this assay.Serum Triglycerides Reference Interval Normal <150 mg/dL Borderline high 150 - 199 mg/dL High 200 - 499 mg/dL Very High > or = 500 mg/dL Laboratory - Chemistry and C hemistry - challengeOrdered By: Altaf Rose on 02-06-2023 CO2 [Moles/Vol] 28.0 mmol/L 21.0-32.0 [facility] Urea nitrogen/Creatinine [Mass ratio] 24.5 mg/mg 10-20 [facility] No Panel InformationOrdered By: Altaf Rose on 02-06-2023 Estimated GFR (MDRD) Amer 64 mL/min >60 [facility] Comment on above: GFR Calc Estimated GFR (MDRD) Non-Af Amer 53 mL/min >60 [facility] Comment on above: Non- GFR Calc Serum or plasma calcium rober urement (mass/volume)Ordered By: Altaf Rose on 02-06-2023 Calcium [Mass/Vol] 9.7 mg/dL 8.5-10.1 [facility] Serum or plasma cholesterol in HDL measurement (mass/volume)Ordered By: Altaf Rose on 02-06-2023 Cholesterol in HDL [Mass/Vol] 107 mg/dL >40 [facility] Comment on above: The drugs N-Acetylcy steine and Metamizole may falsely depress this assay. Reference Range HDL <40 mg/dL Low HDL Cholesterol HDL >or= 60 mg/dL High HDL Cholesterol Serum or plasma cholesterol in VLDL measurement (mass/volume)Ordered By: Altaf Rose on 02-06-2023 Cholesterol in VLDL [Mass/Vol] 20 mg/dL 5-40 [facility] Serum or plasma creatinine m easurement (mass/volume)Ordered By: Altaf Rose on 02-06-2023 Creatinine [Mass/Vol] 1.10 mg/dL 0.55-1.02 [facility] Comment on above: The validity of the calculated GFR & GFRAA in patients over 70 years has not been determined. Clinical correlation is essential. Serum or plasma low density lipoprotein (LDL) cholesterol measurement (mass/volume)Ordered By: Altaf Rose on 02-06-2023 Cholesterol in LDL [Mass/Vol] 95 mg/dL 0-130 [facility] Serum or plasma urea nitroge n measurement (mass/volume)Ordered By: Altaf Rose on 02-06-2023 Urea nitrogen [Mass/Vol] 27 mg/dL 7-18 [facility] Thin prep Papanicolaou smear with manual screeningOrdered By: Altaf Rose on 02-06-2023 Thin prep Papanicolaou smear with manual screening 6 5-15 [facility] BLAIR DIAG W KARISSA RTon 023 BLAIR DIAG W KARISSA RT * * *Final Report* * * DATE OF EXAM: Nov 23 2022 10:54AM WRW 0629 - BLAIR DIAG W KARISSA RT / PROCEDURE REASON: Abnormal mammogram * * * * Physician Interpretation * * * * RESULT: #[id number] - BLAIR DIAG W KARISSA RT UNILATERAL RIGHT DIGITAL DIAGNOSTIC MAMMOGRAM TOMOSYNTHESIS WITH CAD: 11/23/2022 HISTORY: Short term follow up right breast.-Abnormal Mammogram post bx /priors available for comparison. RESULT: TECHNIQUE: The study was acquired using full field digital technology and interpreted from soft copy. Digital Breast Tomosynthesis (DBT) images were obtained and used to assist in the interpretation of this examination. Current study was also evaluated with a Computer Aided Detection (CAD). Comparison is made to exams dated: 05/16/2022 mammogram - [facility], 04/20/2022 mammogram - [facility], 02/24/2022 mammogram, 02/16/2021 mammogram, and 02/13/2020 mammogram - [facility]. There are scattered areas of fibroglandular density in the right breast. There is a biopsy clip in the right breast. No significant masses, calcifications, or other findings are seen in the breast. IMPRESSION: NEGATIVE There is no mammographic evidence of malignancy. Return to annual mammogram screening schedule is recommended. Johnny aj/roberto carlos:11/23/2022 11:20:38 Sales Forecast Analyst(s): RT Neal(R)(M), [facility] Mammogram BI-RADS: 1 Negative Multiple national specialty organizations have released breast cancer screening guidelines for women at average risk for developing breast cancer - guidelines that are based on both evidence and opinion, yet differ on when to start and how often to screen for breast cancer. With representation from Breast Imaging, Internal Medicine, Women's Health, Family Medicine, and Medical/Surgical Oncology, the [facility] has carefully reviewed the data and reached the following consensus: 1) All women should engage in shared decision-making with their providers to decide when to start and how often to screen; 2) All women should have the opportunity to start screening mammography at age 40; 3) For women ages 45-55, we recommend annual screening mammograms; 4) For women ages 55 and over, we support both the transition from an annual to a biennial interval if this aligns more with patient's values and preferences, or continuation with annual screening; 5) All women should discuss with their providers when to stop screening mammograms. Environmental Studies Professor: Roberto Carlos Transcribe Date/Time: Nov 23 2022 10:54A Dictated by: JOHNNY REYNOSO MD This examination was interpreted and the report reviewed and electronically signed by: JOHNNY REYNOSO MD on Nov 23 2022 11:20AM EST [id number] N Normal [facility] CNOVon 05-23-2022 CNOV Office Visit (GENSWS ) SARA MERCADO ([id number]) 1955 F Date Time Provider Department 05/23/22 3:15 PM DEVEN ORTA During your visit today, we recorded the following information about you: Temperature Pulse Blood pressure Weight 97.2 degrees 56/minute 132/78 102.5 kg Height 1.727 m Deven Orta III, MD 05/23/2022 3:31 PM Signed Subjective: Patient is status post an ultrasound-guided right needle core biopsy on 05/16/2022. This was done for lesion at the 6 o'clock position 1 cm from the nipple areolar complex this came back as a benign fibroadenomatoid nodule. Objective:Blood pressure 132/78, pulse (!) 56, temperature 36.2 ?C (97.2 ?F), height 172.7 cm (5' 8), weight 102.5 kg (226 lb), SpO2 97 %. Biopsy site is clean without signs of infection Assessment: Fibroadenoma right breast Plan: Patient will need a 6-month follow-up mammogram on the right side orders have been written and she can follow-up with me on an as-needed basis. Allergies As of Date: 05/23/2022 Noted Allergy Reaction PENICILLINS 10/11/2007 Date Reviewed: 05/23/2022 Reviewed by: Ekaterina Fritz LPN - Fully Assessed Reason for Visit: Follow Up [171] Cmt: US right breast biopsy f/u Primary Visit Diagnosis:Abnormal mammogram [R92.8] Order(s):[facility] DIAGNOSTIC RT [[id number]] Order #: [id number] FUTURE Prescriptions as of 05/23/2022 - calcium carbonate 600 mg-cholecalciferol 400 units [...] hours as needed for fever (specify). - oxyCODONE-acetaminoph en (PERCOCET) 5-325 mg tablet Take 1 tablet [...] tablet daily. Problem List As Of Date 05/23/2022 Noted Resolved Abnormality of gait [R26.9] 11/10/2020 Total knee replacement status, right [Z96.651] 11/10/2020 Weakness of right leg [R29.898] 11/10/2020 Stiffness of joint [M25.60] 11/10/2020 Impaired functional mobility, balance, gait, an*11/10/2020 Abnormal posture [R29.3] 12/04/2020 Chest pain [R07.9] 02/27/2021 Ureteral calculus [N20.1] 02/28/2021 Elevated troponin [R77.8] 02/28/2021 Letter Text Encounter Status:[facility] (RADMN) SARA MERCADO ([id number]) 1955 F Date Time Provider Department 05/19/22 LUCRETIA CLIFFORD During your visit today, we recorded the following information about you: Lucretia Clifford RN 05/19/2022 9:14 AM Signed Called patient to notify the breast pathology results were benign per Dr. Hughes. Informed patient a 6 month follow up is recommended. Patient verbalized understanding. Allergies As of Date: 05/19/2022 Noted Allergy Reaction PENICILLINS 10/11/2007 Date Reviewed: 04/29/2022 Reviewed by: Cinthia Multani LPN - Fully Assessed Reason for Visit: Results [95] Prescriptions as of 05/19/2022 - calcium carbonate 600 mg-cholecalciferol 400 units [...] hours as needed for fever (specify). - oxyCODONE-acetaminoph en (PERCOCET) 5-325 mg tablet Take 1 tablet [...] tablet daily. Problem List As Of Date 05/19/2022 Noted Resolved Abnormality of gait [R26.9] 11/10/2020 Total knee replacement status, right [Z96.651] 11/10/2020 Weakness of right leg [R29.898] 11/10/2020 Stiffness of joint [M25.60] 11/10/2020 Impaired functional mobility, balance, gait, an*11/10/2020 Abnormal posture [R29.3] 12/04/2020 Chest pain [R07.9] 02/27/2021 Ureteral calculus [N20.1] 02/28/2021 Elevated troponin [R77.8] 02/28/2021 Encounter Status:Closed by LUCRETIA CLIFFORD on 05/19/22 Normal [facility] BLAIR RONQUILLOon 023 BLAIR RONQUILLO * * *Final Report* * * DATE OF EXAM: May 16 2022 2:20PM ROCIO 0629 - [facility] SAGAR W KARISSA RT / PROCEDURE REASON: RIGHT BREAST BIOPSY * * * * Physician Interpretation * * * * #[id number] - [facility] US BIOPSY BREAST RT #[id number] - [facility] DIAG W KARISSA RT ULTRASOUND GUIDED BIOPSY RIGHT BREAST WITH MARKING DEVICE INSERTED AND POST DIGITAL MAMMOGRAPHIC AND ULTRASOUND IMAGIN05/16/2022 HISTORY: /The patient presents for RIGHT ultrasound-guided breast biopsy of a 7mm mass at 6:00 1cmFN - HYDROMARK butterfly clip placed. Pre and post fire sonographic images were obtained and stored in permanent archive. Right Breast Biopsy. PATIENT CONSENT: A time out was performed immediately prior to procedure start with the radiology team, correctly identifying the patient name, date of , procedure, anatomy (including marking of site and side), patient position, relevant diagnostic and radiology test results, safety precautions, and procedure-specific equipment needs. The procedure was explained to the patient including the risks, benefits and alternatives. Medications and allergies were also reviewed. The risks, including but not limited to infection and bleeding, were reviewed by the performing physician and the patient agreed to undergo the procedure. The radiologist and technologist were present throughout the entire procedure. Dr. Hughes performed the entire procedure without an assistant art director. Audible Time Out Time: 1341 Procedure Start Time: 1344 Procedure Stop Time: 1354 RIGHT ultrasound-guided breast biopsy of a 7mm mass at 6:00 1cmFN - HYDROMARK butterfly clip placed. Correlation is made to exams dated: 04/20/2022 ultrasound, 04/20/2022 mammogram - [facility], 02/24/2022 mammogram, 02/16/2021 mammogram, 02/13/2020 mammogram, and 02/07/2019 mammogram - [facility]. An ultrasound guided biopsy using real-time ultrasound was performed for the concerning 0.7 cm mass located in the right breast at 6 o'clock 1 cm from the nipple. This was described on the previous mammography and ultrasound reports. The skin was prepped in the usual manner. Local anesthetic was administered to the access site. A skin angelina was made in the breast. The abnormality was approached from the medial aspect. A 12 gauge biopsy needle was placed adjacent to the abnormality through an introducer device under ultrasound guidance. Once the needle was documented to be in the correct location, three cores were obtained using a BARD biopsy device. A Hydromark butterfly clip was inserted into the biopsy cavity. A skin closure strip and a sterile dressing were applied to the access site. Post procedure digital mammographic and ultrasound imaging demonstrates the location device at the targeted area. The specimens were sent to the laboratory for pathological analysis. IMPRESSION: ULTRASOUND GUIDED BIOPSY Ultrasound guided biopsy of the 0.7 cm mass in the right breast at 6 o'clock 1 cm from the nipple with placement of a clip was successful with no apparent post procedure complications. Waiting for pathology results. A final report will be issued when these become available. Zoey Hughes M.D., jr/roberto carlos:05/16/2022 15:02:07 Sales Forecast Analyst(s): RT Susy(R)(M), [facility]; Trista Kirby, [facility] Multiple national specialty organizations have released breast cancer screening guidelines for women at average risk for developing breast cancer - guidelines that are based on both evidence and opinion, yet differ on when to start and how often to screen for breast cancer. With representation from Breast Imaging, Internal Medicine, Women's Health, Family Medicine, and Medical/Surgical Oncology, the [facility] has carefully reviewed the data and reached the following consensus: 1) All women should engage in shared decision-making with their providers to decide when to start and how often to screen; 2) All women should have the opportunity to start screening mammography at age 40; 3) For women ages 45-55, we recommend annual screening mammograms; 4) For women ages 55 and over, we support both the transition from an annual to a biennial interval if this aligns more with patient's values and preferences, or continuation with annual screening; 5) All women should discuss with their providers when to stop screening mammograms. Environmental Studies Professor: Roberto Carlos Transcribe Date/Time: May 16 2022 1:06P Dictated by : ZOEY HUGHES MD This examination was interpreted and the report reviewed and electronically signed by: ZOEY HUGHES MD on May 16 2022 3:02PM EST [id number] Normal [facility] US BIOPSY BREAST RTon [facility] US BIOPSY BREAST RT * * *Final Repor t* * * DATE OF EXAM: May 16 2022 1:59PM KAREN 0598 - [facility] US BIOPSY BREAST RT / PROCEDURE REASON: R92.8-Abnormal mammogram * * * * Physician Interpretation * * * * #[id number] - [facility] US BIOPSY BREAST RT #[id number] - [facility] SAGAR Lomeli KARISSA RT ULTRASOUND GUIDED BIOPSY RIGHT BREAST WITH MARKING DEVICE INSERTED AND POST DIGITAL MAMMOGRAPHIC AND ULTRASOUND IMAGIN05/16/2022 HISTORY: /The patient presents for RIGHT ultrasound-guided breast biopsy of a 7mm mass at 6:00 1cmFN - HYDROMARK butterfly clip placed. Pre and post fire sonographic images were obtained and stored in permanent archive. Right Breast Biopsy. PATIENT CONSENT: A time out was performed immediately prior to procedure start with the radiology team, correctly identifying the patient name, date of , procedure, anatomy (including marking of site and side), patient position, relevant diagnostic and radiology test results, safety precautions, and procedure-specific equipment needs. The procedure was explained to the patient including the risks, benefits and alternatives. Medications and allergies were also reviewed. The risks, including but not limited to infection and bleeding, were reviewed by the performing physician and the patient agreed to undergo the procedure. The radiologist and technologist were present throughout the entire procedure. Dr. Hughes performed the entire procedure without an assistant art director. Audible Time Out Time: 1341 Procedure Start Time: 1344 Procedure Stop Time: 1354 RIGHT ultrasound-guided breast biopsy of a 7mm mass at 6:00 1cmFN - HYDROMARK butterfly clip placed. Correlation is made to exams dated: 04/20/2022 ultrasound, 04/20/2022 mammogram - [facility], 02/24/2022 mammogram, 02/16/2021 mammogram, 02/13/2020 mammogram, and 02/07/2019 mammogram - [facility]. An ultrasound guided biopsy using real-time ultrasound was performed for the concerning 0.7 cm mass located in the right breast at 6 o'clock 1 cm from the nipple. This was described on the previous mammography and ultrasound reports. The skin was prepped in the usual manner. Local anesthetic was administered to the access site. A skin angelina was made in the breast. The abnormality was approached from the medial aspect. A 12 gauge biopsy needle was placed adjacent to the abnormality through an introducer device under ultrasound guidance. Once the needle was documented to be in the correct location, three cores were obtained using a BARD biopsy device. A Hydromark butterfly clip was inserted into the biopsy cavity. A skin closure strip and a sterile dressing were applied to the access site. Post procedure digital mammographic and ultrasound imaging demonstrates the location device at the targeted area. The specimens were sent to the laboratory for pathological analysis. IMPRESSION: ULTRASOUND GUIDED BIOPSY Ultrasound guided biopsy of the 0.7 cm mass in the right breast at 6 o'clock 1 cm from the nipple with placement of a clip was successful with no apparent post procedure complications. Waiting for pathology results. A final report will be issued when these become available. Zoey Hughes M.D., jr/roberto carlos:05/16/2022 15:02:07 Sales Forecast Analyst(s): RT Susy(R)(M), [facility]; Trista Kirby, [facility] Multiple national specialty organizations have released breast cancer screening guidelines for women at average risk for developing breast cancer - guidelines that are based on both evidence and opinion, yet differ on when to start and how often to screen for breast cancer. With representation from Breast Imaging, Internal Medicine, Women's Health, Family Medicine, and Medical/Surgical Oncology, the [facility] has carefully reviewed the data and reached the following consensus: 1) All women should engage in shared decision-making with their providers to decide when to start and how often to screen; 2) All women should have the opportunity to start screening mammography at age 40; 3) For women ages 45-55, we recommend annual screening mammograms; 4) For women ages 55 and over, we support both the transition from an annual to a biennial interval if this aligns more with patient's values and preferences, or continuation with annual screening; 5) All women should discuss with their providers when to stop screening mammograms. Environmental Studies Professor: Roberto Carlos Transcribe Date/Time: May 16 2022 1:06P Dictated by : ZOEY HUGHES MD This examination was interpreted and the report reviewed and electronically signed by: ZOEY HUGEHS MD on May 16 2022 3:02PM EST [id number] Normal [facility] SURGICAL PATHOLOGYon 023 CASE REPORT Normal [facility] Comment on above: Order Comment: Speci men Type: TISSUE SPECIMEN Ordering Facility: [facility] Address: [address] [place] [address] Result Comment: Surg [facility] Pathology Report Case: [id number] Authorizing Provider: Zoey Hughes MD Collected: 05/16/2022 01:53 PM Ordering Location: Mammography Received: 05/16/2022 03:24 PM Pathologist: Raúl Huizar MD Specimen: BREAST CORE BIOPSY RIGHT, 6:00 1cmfn; Hydromark butterfly clip Performed By: #### S #### [facility] CLIA [id number] [address] [place] [address] FINAL DIAGNOSIS [facility] Comment on above: Order Comment: Speci men Type: TISSUE SPECIMEN Ordering Facility: [facility] Address: [address] [place] [address] Result Comment: A. B reast, right, at 6:00, 1 cm from the nipple, Butterfly clip, mass, ultrasound-guided core biopsy: ---Benign fibroadenomatoid nodule. Performed By: #### S #### [facility] CLIA [id number] [address] [place] [address] FINAL PERFORMING LAB [facility] Comment on above: Order Comment: Speci men Type: TISSUE SPECIMEN Ordering Facility: [facility] Address: [address] [place] [address] Result Comment: Diag nostic interpretation performed at [facility], [address] [place] [address] CLIA# [id number] Elevator Erector: Yovani Leach M.D. Performed By: #### S #### [facility] CLIA [id number] [address] [place] [address] GROSS DESCRIPTION [facility] Comment on above: Order Comment: Speci men Type: TISSUE SPECIMEN Ordering Facility: [facility] Address: [address] [place] [address] Result Comment: A. B REAST CORE BIOPSY RIGHT Received in formalin labeled as right breast are multiple segments of cylindrical tissue aggregating to 1.9 x 0.6 x 0.2 cm, alarcon-white to red-brown and of a soft consistency. The specimen was removed from the patient at 1:53 on 05/16/2022. On the same day, the specimen was placed in formalin at 1:53. Totally submitted in formalin in one cassette. Gross examination performed at [facility], [address] [place] [address], [place] [address] JT 05/16/2022 11:21 PM Performed By: #### S #### [facility] CLIA [id number] [address] [place] [id number] US BIOPSY BREAST RTon [address] [facility] CNOVon 04-29-2022 CNOV Office Visit (GENSWS ) SARA MERCADO ([id number]) 1955 F Date Time Provider Department 04/29/22 2:15 PM DEVEN ORTA GENMARCIAS During your visit today, we recorded the following information about you: Deven Orta III, MD 04/29/2022 3:03 PM Signed I was unable to visualize the lesion at the 6 o'clock position on the right breast. I am going to get her scheduled for an ultrasound-guided needle core biopsy of her right breast in the radiology department at a tertiary referral center. Referring Provider: DEVEN ORTA [[id number]] Allergies As of Date: 04/29/2022 Noted Allergy Reaction PENICILLINS 10/11/2007 Date Reviewed: 04/29/2022 Reviewed by: Cinthia Multani LPN - Fully Assessed Reason for Visit: Procedure [88] Cmt: Ultrasound guided breast biopsy Right Primary Visit Diagnosis:Abnormal mammogram [R92.8] Order(s):US BREAST BIOPSY RIGHT (POC) SURG USE ONLY [5232199] Order #: [id number]: 1 US BIOPSY BREAST RT [[id number]] Order #: [id number] FUTURE Prescriptions as of 04/29/2022 - calcium carbonate 600 mg-cholecalciferol 400 units [...] hours as needed for fever (specify). - oxyCODONE-acetaminoph en (PERCOCET) 5-325 mg tablet Take 1 tablet [...] tablet daily. Problem List As Of Date 04/29/2022 Noted Resolved Abnormality of gait [R26.9] 11/10/2020 Total knee replacement status, right [Z96.651] 11/10/2020 Weakness of right leg [R29.898] 11/10/2020 Stiffness of joint [M25.60] 11/10/2020 Impaired functional mobility, balance, gait, an*11/10/2020 Abnormal posture [R29.3] 12/04/2020 Chest pain [R07.9] 02/27/2021 Ureteral calculus [N20.1] 02/28/2021 Elevated troponin [R77.8] 02/28/2021 Follow-up and Disposition History for Encounter Date Provider Department Center 04/29/2022 [id number] ORTA [facility] Encounter Status:[facility] ([id number]) 1955 F Date Time Provider Department 04/29/22 DEVEN MIRANDA MD RADMARGY During your visit today, we recorded the following information about you: Allergies As of Date: 04/29/2022 Noted Allergy Reaction PENICILLINS 10/11/2007 Date Reviewed: 04/29/2022 Reviewed by: Cinthia Multani LPN - Fully Assessed Reason for Visit: Mammogram Result Call Back [1736] Prescriptions as of 04/29/2022 - calcium carbonate 600 mg-cholecalciferol 400 units [...] hours as needed for fever (specify). - oxyCODONE-acetaminoph en (PERCOCET) 5-325 mg tablet Take 1 tablet [...] tablet daily. Problem List As Of Date 04/29/2022 Noted Resolved Abnormality of gait [R26.9] 11/10/2020 Total knee replacement status, right [Z96.651] 11/10/2020 Weakness of right leg [R29.898] 11/10/2020 Stiffness of joint [M25.60] 11/10/2020 Impaired functional mobility, balance, gait, an*11/10/2020 Abnormal posture [R29.3] 12/04/2020 Chest pain [R07.9] 02/27/2021 Ureteral calculus [N20.1] 02/28/2021 Elevated troponin [R77.8] 02/28/2021 Encounter Status:Closed by OTIS LOPES on 04/29/22 Normal [facility] CNOVon 04-26-2022 CNOV Office Visit (ALINA ) SARA MERCADO ([id number]) 1955 F Date Time Provider Department 04/26/22 10:00 AM DEVEN ORTA During your visit today, we recorded the following information about you: Temperature Pulse Blood pressure Weight 97.8 degrees 70/minute 152/90 101.6 kg Height 1.727 m Ekaterina Fritz LPN 04/26/2022 10:06 AM Signed REVIEW OF SYSTEMS: General: The patient denies fatigue, denies weight loss, notes weight gain, denies feeling hot, and denies feelings of cold. Eyes: The patient denies glaucoma, denies eye injury/surgery, wears glasses or contacts. Ear/Nose/Throat: The patient notes allergies, denies hayfever, denies ear infections, and denies bloody noses. Cardiovascular: The patient denies chest pain, denies heart disease, notes high blood pressure,denies cardiac stent, denies prior heart attack, denies irregular heart beat, notes high cholesterol, denies poor circulation, denies heart failure, other cardiac issues, denies claudication, denies cold feet, denies peripheral arterial stent. Respiratory: The patient denies tuberculosis, denies pneumonia, notes frequent cough, denies pulmonary embolism, denies shortness of breath, and denies coughing up blood. Gastrointestinal: The patient denies difficulty swallowing, denies acid reflux, denies ulcers, denies vomiting, denies jaundice/hepatitis, denies gallbladder problems, denies black or tarry stools, denies hemorrhoids, denies bleeding from rectum, denies diverticulitis, denies constipation, denies diarrhea, denies loss of stool control, and denies hernias. Kidney/Bladder: The patient notes kidney stones, denies urine infections, and denies bloody urine. Skin: The patient notes a history of skin cancer, denies bleeding/changing moles, and denies a history of skin rash. Neurologic: The patient denies a history of epilepsy/convulsions, denies headaches, denies head/spinal injuries, and denies stroke/TIA. Psychiatric: The patient denies psychiatric medications, notes depression, and denies voices, denies substance abuse. Endocrine: The patient denies thyroid disorders, denies diabetes, and denies hormonal problems. Hematologic: The patient denies a history of bruising, denies bleeding, and denies anemia, denies blood clots. Infections: The patient denies a history of measles and mumps, denies rheumatic fever, and denies sexually transmitted diseases. Musculoskeletal: The patient denies back pain/injury, denies back problems, denies sciatica, notes knee/foot trouble, denies arthritis, or denies gout. When was patient's last Mammogram screening? 2021 Last Colonoscopy: 2016 LILO Darden III, MD 04/26/2022 11:32 AM Signed HISTORY AND PHYSICAL - BREAST COMPLAINT Sara Mercado 1955 REFERRING PHYSICIAN: No ref. provider found CHIEF COMPLAINT: Abnormal mammogram (primary encounter diagnosis) HPI: The patient is a 66 year old female with a complaint of an abnormal mammogram. The patient had a mammogram with ultrasound on 04/20/22 which demonstrated : IMPRESSION: SUSPICIOUS FINDING - BIOPSY SHOULD BE CONSIDERED The 0.3 cm x 0.3 cm x 0.2 cm oval mass in the right breast is suspicious of malignancy. An ultrasound guided biopsy is recommended. The patient denies a history of breast masses. She does perform a self breast exam routinely. She notes no skin changes. She denies nipple discharge. She notes no axillary masses. She notes no family history of breast problems. She notes no significant breast trauma or breast difficulties in the past. PAST MEDICAL HISTORY Diagnosis Date Chronic depressive [...] PAST SURGICAL HISTORY OF Left knee replacement Current Outpatient Medications Medication Sig Dispense Refill calcium carbonate 600 mg-cholecalciferol 400 units 600 [...] Take 50 mg by mouth twice daily. 0 sertraline hcl(ZOLOFT 50 MG TAB) Take one(1) tablet daily. 0 tamsulosin (FLOMAX) 0.4 mg Take 1 capsule by mouth once daily. Follow up with Urology for refills 30 capsule 0 acetaminophen (TYLENOL) 325 mg ta (more content not included)... [facility] KARISSA RT * * *Final Report* * * DATE OF EXAM: Apr 20 2022 3:40PM WRW 0629 - [facility] W KARISSA RT / PROCEDURE REASON: Abnormal mammogram * * * * Physician Interpretation * * * * RESULT: #[id number] - [facility] TERESA W KARISSA RT UNILATERAL RIGHT DIGITAL DIAGNOSTIC MAMMOGRAM TOMOSYNTHESIS WITH CAD: 04/20/2022 HISTORY: Abnormal Mammogram / Call back/abnormal mamm: Right. RESULT: TECHNIQUE: The study was acquired using full field digital technology and interpreted from soft copy. Digital Breast Tomosynthesis (DBT) images were obtained and used to assist in the interpretation of this examination. Current study was also evaluated with a Computer Aided Detection (CAD). Comparison is made to exams dated: 02/24/2022 mammogram, 02/16/2021 mammogram, 02/13/2020 mammogram, and 02/07/2019 mammogram - [facility]. There are scattered fibroglandular elements in right breast. There is a focal asymmetry in the right breast at 6 o'clock anterior depth. This is seen in additional views. No other significant masses or calcifications are seen in the breast. IMPRESSION: INCOMPLETE: NEEDS ADDITIONAL IMAGING EVALUATION The focal asymmetry in the right breast is indeterminate. An ultrasound is recommended. Deven teran/roberto carlos:04/20/2022 16:28:55 Sales Forecast Analyst(s): RT Alex(R)(M), [facility] Mammogram BI-RADS: 0 Incomplete: needs additional imaging evaluation Multiple national specialty organizations have released breast cancer screening guidelines for women at average risk for developing breast cancer - guidelines that are based on both evidence and opinion, yet differ on when to start and how often to screen for breast cancer. With representation from Breast Imaging, Internal Medicine, Women's Health, Family Medicine, and Medical/Surgical Oncology, the [facility] has carefully reviewed the data and reached the following consensus: 1) All women should engage in shared decision-making with their providers to decide when to start and how often to screen; 2) All women should have the opportunity to start screening mammography at age 40; 3) For women ages 45-55, we recommend annual screening mammograms; 4) For women ages 55 and over, we support both the transition from an annual to a biennial interval if this aligns more with patient's values and preferences, or continuation with annual screening; 5) All women should discuss with their providers when to stop screening mammograms. Environmental Studies Professor: Roberto Carlos Transcribe Date/Time: Apr 20 2022 3:29P Dictated by: DEVEN MIRANDA MD This examination was interpreted and the report reviewed and electronically signed by: DEVEN MIRANDA MD on Apr 20 2022 4:28PM EST [id number] Normal [facility] US BREAST LTD RTon 04-20 [facility] US BREAST LTD RT * * *Final Report* * * DATE OF EXAM: Apr 20 2022 4:09PM WRU 0594 - [facility] US BREAST LTD RT / PROCEDURE REASON: Abnormal mammogram * * * * Physician Interpretation * * * * #[id number] - [facility] US BREAST LTD RT LIMITED ULTRASOUND OF RIGHT BREAST: 04/20/2022 HISTORY: Abnormal Mammogram. RESULT: Comparison is made to exam dated: 04/20/2022 mammogram - [facility]. Color flow and real-time ultrasound of the right breast 6 o'clock region were performed. De Leon scale images of the real-time examination were reviewed. There is a 0.3 cm x 0.3 cm x 0.2 cm oval mass in the right breast at 6 o'clock anterior depth 1 cm from the nipple. This oval mass is hypoechoic. This correlates with mammography findings. IMPRESSION: SUSPICIOUS FINDING - BIOPSY SHOULD BE CONSIDERED The 0.3 cm x 0.3 cm x 0.2 cm oval mass in the right breast is suspicious of malignancy. An ultrasound guided biopsy is recommended. Deven teran/roberto carlos:04/20/2022 16:36:03 Sales Forecast Analyst(s): Kristal Dietrich, [facility] Ultrasound BI-RADS: 4 Suspicious finding - Biopsy should be considered Multiple national specialty organizations have released breast cancer screening guidelines for women at average risk for developing breast cancer - guidelines that are based on both evidence and opinion, yet differ on when to start and how often to screen for breast cancer. With representation from Breast Imaging, Internal Medicine, Women's Health, Family Medicine, and Medical/Surgical Oncology, the [facility] has carefully reviewed the data and reached the following consensus: 1) All women should engage in shared decision-making with their providers to decide when to start and how often to screen; 2) All women should have the opportunity to start screening mammography at age 40; 3) For women ages 45-55, we recommend annual screening mammograms; 4) For women ages 55 and over, we support both the transition from an annual to a biennial interval if this aligns more with patient's values and preferences, or continuation with annual screening; 5) All women should discuss with their providers when to stop screening mammograms. Environmental Studies Professor: Roberto Carlos Transcribe Date/Time: Apr 20 2022 3:58P Dictated by : DEVEN MIRANDA MD This examination was interpreted and the report reviewed and electronically signed by: DEVEN MIRANDA MD on Apr 20 2022 4:36PM EST [id number] N Normal [facility] CNPNon 03-15-2022 CNPN Telephone (RADMN) SARA MERCADO ([id number]) 1955 F Date Time Provider Department 03/15/22 DEVEN MIRANDA MD RADUT During your visit today, we recorded the following information about you: Allergies As of Date: 03/15/2022 Noted Allergy Reaction PENICILLINS 10/11/2007 Date Reviewed: 01/31/2022 Reviewed by: Paty Green, TOM - Fully Assessed Reason for Visit: Mammogram Result Call Back [[id number]] Prescriptions as of 03/15/2022 - calcium carbonate 600 mg-cholecalciferol 400 units 600 mg-10 mcg (400 unit) tab Take by mouth. - lisinopril (ZESTRIL, PRINIVIL) 10 mg tablet - tamsulosin (FLOMAX) 0.4 mg Take 1 capsule by mouth once daily. Follow up with Urology for refills - aspirin 81 mg chewable tablet Take 1 tablet by mouth once daily. Follow up with pcp for refill recommendations - acetaminophen (TYLENOL) 325 mg tablet Take 2 tablets by mouth every 4 hours as needed for fever (specify). - oxyCODONE-acetaminoph en (PERCOCET) 5-325 mg tablet Take 1 tablet by mouth every 4 hours as needed for up to 10 doses. - Docosahexanoic Acid-Eicosapent 120-180 mg capsule Take 1,000 mg by mouth. - pravastatin sodium (PRAVASTATIN ORAL) Take 20 mg by mouth. - metoprolol succinate(TOPROL XL 50 MG 24 HR TAB) Take one(1) tablet daily. - sertraline hcl(ZOLOFT 50 MG TAB) Take one(1) tablet daily. Problem List As Of Date 03/15/2022 Noted Resolved Abnormality of gait [R26.9] 11/10/2020 Total knee replacement status, right [Z96.651] 11/10/2020 Weakness of right leg [R29.898] 11/10/2020 Stiffness of joint [M25.60] 11/10/2020 Impaired functional mobility, balance, gait, an*11/10/2020 Abnormal posture [R29.3] 12/04/2020 Chest pain [R07.9] 02/27/2021 Ureteral calculus [N20.1] 02/28/2021 Elevated troponin [R77.8] 02/28/2021 Encounter Status:Closed by OTIS LOPES on 03/15/22 Normal [facility] BLAIR SCREENING W TOMOon 02-[address] [facility] Basophil percentageOrdered B y: Dr. Rose on 02-04-2022 Chloride [Moles/Vol] 109 mmol/L 98-107 [facility] Cholesterol [Mass/Vol] 218 mg/dL <200 [facility] Comment on above: <200 mg/dL Desirable 200-240 mg/dL Borderline >240 mg/dL High Risk Glucose [Mass/Vol] 97 mg/dL 74-106 [facility] Potassium [Moles/Vol] 4.5 mmol/L 3.5-5.1 [facility] Sodium [Moles/Vol] 143 mmol/L 136-145 [facility] Triglyceride [Mass/Vol] 92 mg/dL <199 [facility] Comment on above: The drugs N-Acetylcy steine and Metamizole may falsely depress this assay.Serum Triglycerides Reference Interval Normal <150 mg/dL Borderline high 150 - 199 mg/dL High 200 - 499 mg/dL Very High > or = 500 mg/dL Laboratory - Chemistry and C hemistry - challengeOrdered By: Dr. Rose on 02-04-2022 CO2 [Moles/Vol] 28.0 mmol/L 21.0-32.0 [facility] Urea nitrogen/Creatinine [Mass ratio] 22.9 mg/mg 10- [facility] No Panel InformationOrdered By: Dr. Rose on 02-04-2022 Estimated GFR (MDRD) Amer 67 mL/min >60 [facility] Comment on above: GFR Calc Estimated GFR (MDRD) Non-Af Amer 56 mL/min >60 [facility] Comment on above: Non- GFR Calc Serum or plasma calcium rober urement (mass/volume)Ordered By: Dr. Rose on 02-04-2022 Calcium [Mass/Vol] 10.0 mg/dL 8.5-10.1 [facility] Serum or plasma cholesterol in HDL measurement (mass/volume)Ordered By: Dr. Rose on 02-04-2022 Cholesterol in HDL [Mass/Vol] 105 mg/dL >40 [facility] Comment on above: The drugs N-Acetylcy steine and Metamizole may falsely depress this assay. Reference Range HDL <40 mg/dL Low HDL Cholesterol HDL >or= 60 mg/dL High HDL Cholesterol Serum or plasma cholesterol in VLDL measurement (mass/volume)Ordered By: Dr. Rose on 02-04-2022 Cholesterol in VLDL [Mass/Vol] 18 mg/dL 5-40 [facility] Serum or plasma creatinine m easurement (mass/volume)Ordered By: Dr. Rose on 02-04-2022 Creatinine [Mass/Vol] 1.05 mg/dL 0.55-1.02 [facility] Comment on above: The validity of the calculated GFR & GFRAA in patients over 70 years has not been determined. Clinical correlation is essential. Serum or plasma low density lipoprotein (LDL) cholesterol measurement (mass/volume)Ordered By: Dr. Rose on 02-04-2022 Cholesterol in LDL [Mass/Vol] 95 mg/dL 0-130 [facility] Serum or plasma urea nitroge n measurement (mass/volume)Ordered By: Dr. Rose on 02-04-2022 Urea nitrogen [Mass/Vol] 24 mg/dL 7-18 [facility] Thin prep Papanicolaou smear with manual screeningOrdered By: Dr. Rose on 02-04-2022 Thin prep Papanicolaou smear with manual screening 6 5-15 [facility] Calcium oxalate dihydrate cr ystals detection in stone by infrared spectroscopyon 04-19-2021 Calcium oxalate dihydrate crystals Infrared spectroscopy Ql (Stone) 10 % [facility] Work Phone: Color of specimen determinat ionon 04-19-2021 Color (Unsp spec) Brown [facility] Work Phone: Laboratory - Miscellaneous t estson 04-19-2021 Service comment (Unsp spec) [Interp] See comment [facility] Work Phone: Comment on above: Physician questions regarding Calculi Analysis contact [facility] at: [phone]. Please Note: Calculi report will follow via computer, mail or medical care administrator delivery Measurement of weight of sto neon 04-19-2021 Weight (Stone) 26 mg [facility] Work Phone: No Panel Informationon 04-19 Stone Analysis (T) See comment [facility] Work Phone: Comment on above: Percentage (Daniel ts the % composition,) Stone Calcium Oxalate Monohydrate 90 % [facility] Work Phone: Origin of Stoneon 04-19-2021 Origin Nom (Stone) Left Ureter [facility] Work Phone: Size of stoneon 04-19-2021 Size (Stone) [Entitic vol] 6x3 mm [facility] Work Phone: Thin prep Papanicolaou smear with manual screeningon 04-19-2021 Thin prep Papanicolaou smear with manual screening See comment [facility] Work Phone: Comment on above: Photograph will foll ow under a separate cover. Absolute lymphocyte counton 03-10-2021 Lymphocytes Auto (Unsp spec) [#/Vol] 1.17 10*3/uL 0.83-4.51 [facility] Work Phone: Basophil percentageon 2021 Basophils/100 WBC (Bld) 0.5 % 0-1 [facility] Work Phone: Chloride [Moles/Vol] 105 mmol/L 98-107 [facility] Work Phone: Eosinophils/100 WBC (Bld) 3.1 % 0-5 [facility] Work Phone: Glucose [Mass/Vol] 94 mg/dL 74-106 [facility] Work Phone: [phone] Comment on above: Please note revised GLUCOSE reference range effective 2017. Neutrophils (Bld) [#/Vol] 7.1 10*3/uL 2.0-7.7 [facility] Work Phone: Neutrophils/100 WBC (Bld) 76.6 % 47-70 [facility] Work Phone: Potassium [Moles/Vol] 4.2 mmol/L 3.5-5.1 [facility] Work Phone: Sodium [Moles/Vol] 141 mmol/L 136-145 [facility] Work Phone: WBC (Bld) [#/Vol] 9.2 10*3/uL 4.4-11.0 [facility] Work Phone: Blood erythrocytes count (nu mber/volume)on 03-10-2021 RBC (Bld) [#/Vol] 3.62 10*6/uL 4.2-5.4 [facility] Work Phone: Blood hemoglobin measurement (mass/volume)on 03-10-2021 Hemoglobin (Bld) [Mass/Vol] 10.0 g/dL 12.0-15.0 [facility] Work Phone: Blood lymphocytes/100 leukoc yteson 03-10-2021 Lymphocytes/100 WBC (Bld) 12.7 % 19-41 [facility] Work Phone: Blood monocytes/100 leukocyt eson 03-10-2021 Monocytes/100 WBC (Bld) 6.4 % 0-10 [facility] Work Phone: Blood platelet mean volumeon 03-10-2021 Platelet mean volume (Bld) [Entitic vol] 9.7 fL 6.2-12.0 [facility] Work Phone: Determination of erythrocyte mean corpuscular volume (MCV)on 03-10-2021 MCV (RBC) [Entitic vol] 89.2 fL 81-99 [facility] Work Phone: Hematocrit Auto (Bld) [Volum e fraction]on 03-10-2021 Hematocrit (Bld) [Volume fraction] 32.3 % 37-47 [facility] Work Phone: Laboratory - Chemistry and C hemistry - challengeon 03-10-2021 CO2 [Moles/Vol] 27.0 mmol/L 21.0-32.0 [facility] Work Phone: Urea nitrogen/Creatinine [Mass ratio] 13.8 mg/mg 10-20 [facility] Work Phone: Laboratory - Hematology and Cell countson 03-10-2021 Erythrocyte distribution width (RBC) [Entitic vol] 47.9 fL 35.1-43.9 [facility] Work Phone: Erythrocyte distribution width (RBC) [Ratio] 14.8 % 11.6-14.6 [facility] Work Phone: Immature granulocytes/100 WBC (Bld) 0.700 % 0.0-0.9 [facility] Work Phone: Comment on above: IG% - Immature Granu locytes (promyelocytes, myelocytes and metamyelocytes) > 1% indicates that a LEFT SHIFT is Present. MCH (RBC) [Entitic mass] 27.6 pg 27.0-32.0 [facility] Work Phone: Nucleated RBC/100 WBC (Bld) [Ratio] 0 % 0-5 [facility] Work Phone: MCHC Auto (RBC) [Mass/Vol]on 03-10-2021 MCHC (RBC) [Mass/Vol] 31.0 g/dL 32-36 [facility] Work Phone: No Panel Informationon 03-10 Estimated GFR (MDRD) Amer 65 mL/min >60 [facility] Work Phone: Comment on above: GFR Calc Estimated GFR (MDRD) Non-Af Amer 54 mL/min >60 [facility] Work Phone: Comment on above: Non- GFR Calc Platelets bldon 03-10-2021 Platelets (Bld) [#/Vol] 590 10*3/uL 150-450 [facility] Work Phone: Serum or plasma calcium rober urement (mass/volume)on 03-10-2021 Calcium [Mass/Vol] 9.5 mg/dL 8.5-10.1 [facility] Work Phone: Serum or plasma creatinine m easurement (mass/volume)on 03-10-2021 Creatinine [Mass/Vol] 1.09 mg/dL 0.55-1.02 [facility] ster [facility] Work Phone: Comment on above: The validity of the calculated GFR & GFRAA in patients over 70 years has not been determined. Clinical correlation is essential. Serum or plasma urea nitroge n measurement (mass/volume)on 03-10-2021 Urea nitrogen [Mass/Vol] 15 mg/dL 7-18 [facility] Work Phone: Thin prep Papanicolaou smear with manual screeningon 03-10-2021 Thin prep Papanicolaou smear with manual screening 9 5-15 [facility] Work Phone: BLAIR SCREENINGon 02-13-2020 [facility] SCREENING Final Report DATE OF EXAM: Feb 13 2020 2:52PM [facility] [id number] - [facility] SCREENING / PROCEDURE REASON: Encounter for screening mammogram for malignant neoplasm of breast Physician Interpretation #[id number] - [facility] SCREENING BILATERAL DIGITAL SCREENING MAMMOGRAM WITH CAD: 02/13/2020 HISTORY: / Screening Mammogram-Patient reports NO symptoms. RESULT: TECHNIQUE: The study was acquired using full field digital technology and interpreted from soft copy. Current study was also evaluated with a Computer Aided Detection (CAD). Comparison is made to exams dated: 02/07/2019 mammogram, 02/06/2018 mammogram, 07/20/2017 mammogram, 10/20/2016 ultrasound, 10/20/2016 mammogram, and 10/11/2016 mammogram - [facility]. There are scattered fibroglandular elements in both breasts. There are benign calcifications in the left breast. No significant masses, calcifications, or other findings are seen in either breast. There has been no significant interval change. IMPRESSION: BENIGN FINDING There is no mammographic evidence of malignancy. A 1 year screening mammogram is recommended. Yahaira nixon/roberto carlos:02/13/2020 15:18:28 Sales Forecast Analyst(s): Roger Moreira (Nestor)(M), [facility] letter sent: Normal over 40 Mammogram BI-RADS: 2 Benign finding Multiple national specialty organizations have released breast cancer screening guidelines for women at average risk for developing breast cancer - guidelines that are based on both evidence and opinion, yet differ on when to start and how often to screen for breast cancer. With representation from Breast Imaging, Internal Medicine, Women's Health, Family Medicine, and Medical/Surgical Oncology, the [facility] has carefully reviewed the data and reached the following consensus: 1) All women should engage in shared decision-making with their providers to decide when to start and how often to screen; 2) All women should have the opportunity to start screening mammography at age 40; 3) For women ages 45-55, we recommend annual screening mammograms; 4) For women ages 55 and over, we support both the transition from an annual to a biennial interval if this aligns more with patient's values and preferences, or continuation with annual screening; 5) All women should discuss with their providers when to stop screening mammograms. Environmental Studies Professor: Roberto Carlos Transcribe Date/Time: Feb 13 2020 2:38P Dictated by : YAHAIRA ASCENCIO MD This examination was interpreted and the report reviewed and electronically signed by: YAHAIRA ASCENCIO MD on Feb 13 2020 3:18PM EST Normal [facility][1] System Vital Signs Date Time Vital Sign Value Performing Clinician Facility 02-12-2024 10:06-0500 Body mass index (BMI) [Ratio] 34.06 kg/m2 Sotero Ruiz MD Work Phone: [facility] 02-12-2024 10:06-0500 Body temperature 97.39 [degF] Sotero Ruiz MD Work Phone: [facility] 02-12-2024 10:06-0500 Body weight 101.61 kg Sotero Ruiz MD Work Phone: [facility] 02-12-2024 10:06-0500 Diastolic blood pressure 74 mm[Hg] Sotero Ruiz MD Work Phone: [facility] 02-12-2024 10:06-0500 Heart rate 56 /min Sotero Ruiz MD Work Phone: [facility] 02-12-2024 10:06-0500 SaO2% (BldA) [Mass fraction] 96 % Sotero Ruiz MD Work Phone: [facility] 02-12-2024 10:06-0500 Systolic blood pressure 118 mm[Hg] Sotero Ruiz MD Work Phone: [facility] 05-23-2022 15:14-0400 Body height 172.7 cm Deven Orta MD Work Phone: [facility] 05-23-2022 15:14-0400 Body temperature 97.2 [degF] Deven Orta MD Work Phone: [facility] 05-23-2022 15:14-0400 Body weight 102.51 kg Deven Orta MD Work Phone: [facility] 05-23-2022 15:14-0400 Diastolic blood pressure 78 mm[Hg] Deven Orta MD Work Phone: [facility] 05-23-2022 15:14-0400 Heart rate 56 /min Deven Orta MD Work Phone: [facility] 05-23-2022 15:14-0400 SaO2% (BldA) [Mass fraction] 97 % Deven Orta MD Work Phone: [facility] 05-23-2022 15:14-0400 Systolic blood pressure 132 mm[Hg] Deven Orta MD Work Phone: [facility] 04-26-2022 10:04-0500 Body height 172.7 cm Deven Orta MD Work Phone: [facility] 04-26-2022 10:04-0500 Body temperature 97.81 [degF] Deven Orta MD Work Phone: [facility] 04-26-2022 10:04-0500 Body weight 101.61 kg Deven Orta MD Work Phone: [facility] 04-26-2022 10:04-0500 Diastolic blood pressure 90 mm[Hg] Deven Orta MD Work Phone: [facility] 04-26-2022 10:04-0500 Heart rate 70 /min Deven Orta MD Work Phone: [facility] 04-26-2022 10:04-0500 SaO2% (BldA) [Mass fraction] 96 % Deven Orta MD Work Phone: [facility] 04-26-2022 10:04-0500 Systolic blood pressure 152 mm[Hg] Deven Orta MD Work Phone: [facility] 01-31-2022 10:04-0500 Body height 172.7 cm Sotero Ruiz MD Work Phone: [facility] 01-31-2022 10:04-0500 Body temperature 96.8 [degF] Sotero Ruiz MD Work Phone: [facility] 01-31-2022 10:04-0500 Body weight 97.07 kg Sotero Ruiz MD Work Phone: [facility] 01-31-2022 10:04-0500 Diastolic blood pressure 59 mm[Hg] Sotero Ruiz MD Work Phone: [facility] 01-31-2022 10:04-0500 Heart rate 51 /min Sotero Ruiz MD Work Phone: [facility] 01-31-2022 10:04-0500 SaO2% (BldA) [Mass fraction] 99 % Sotero Ruiz MD Work Phone: [facility] 01-31-2022 10:04-0500 Systolic blood pressure 139 mm[Hg] Sotero Ruiz MD Work Phone: [facility] 04-19-2021 09:20-0500 Body temperature 96.9 [degF] [facility] Work Phone: 04-19-2021 09:20-0500 Diastolic blood pressure 77 mm[Hg] [facility] Work Phone: 04-19-2021 09:20-0500 Heart rate 60 /min [facility] Work Phone: 04-19-2021 09:20-0500 Respiratory rate 16 /min [facility] Work Phone: 04-19-2021 09:20-0500 SaO2% (BldA) [Mass fraction] 100 % [facility] Work Phone: 04-19-2021 09:20-0500 Systolic blood pressure 179 mm[Hg] [facility] Work Phone: 04-19-2021 05:42-0500 Body height 172.72 cm [facility] Work Phone: 04-19-2021 05:42-0500 Body mass index (BMI) [Ratio] 32.1 kg/m2 [facility] Work Phone: 04-19-2021 05:42-0500 Body weight 96 kg [facility] Work Phone: Encounters Encounter Date Encounter Type Care Provider Facility Start: 10-16-2024 ambulatory [facility] y:[facility] Start: 02-12-2024 End: 02-12-2024 ambulatory ALTAF ROSE Facility:[facility] Start: 02-12-2024 End: 02-12-2024 Patient encounter procedure Sotero Ruiz MD Work Phone: [facility] Obstetrics & Gynecology Comment on above: Encounter for annual routine gynecological examination (Primary Dx); Encounter for Papanicolaou smear for cervical cancer screening Start: 02-07-2024 End: 02-07-2024 ambulatory Altaf Rose Facility:[facility] Start: 01-21-2024 End: 01-21-2024 ambulatory Ronak Polanco Nubia MORENO Facility:[facility] Start: 11-29-2023 End: 11-30-2023 Documentation procedure Mammography Coordinator [facility] [facility] NOT LISTED Start: 11-29-2023 End: 11-30-2023 Letter encounter Mammography Coordinator [facility] NOT LISTED Start: 11-28-2023 ambulatory ALTAF ROSE Facility :[facility] Start: 11-28-2023 End: 11-28-2023 Subsequent hospital visit by physician Mammo/Bone Density [facility] Comment on above: Breast screening [Z1 2.39] Start: 10-23-2023 End: 10-30-2023 Telephone encounter Sotero Ruiz MD Work Phone: [facility] Obstetrics & Gynecology Comment on above: Orders Start: 02-06-2023 End: 02-06-2023 ambulatory [facility] Work Phone: Start: 02-06-2023 End: 02-06-2023 Patient encounter procedure [facility] Start: 11-23-2022 End: 11-23-2022 ambulatory DEVEN ORTA Facility:[facility] Start: 05-23-2022 End: 05-24-2022 ambulatory DEVEN ORTA Facility:[facility] Start: 05-23-2022 End: 05-23-2022 Patient encounter procedure Deven Orta MD Work Phone: General Surgery Comment on above: Abnormal mammogram ( Primary Dx) Start: 05-19-2022 Telephone encounter Lucretia Clifford RN Work Phone: Mammography Comment on above: Results Start: 05-16-2022 ambulatory DEVEN ORTA [facility] Start: 05-16-2022 End: 05-16-2022 Subsequent hospital visit by physician Procedure Mammo [facility] Work Phone: Mammography Comment on above: Abnormal mammogram [ R92.8] Start: 05-16-2022 End: 05-16-2022 ambulatory [facility] Work Phone: Start: 05-16-2022 End: 05-16-2022 Patient encounter procedure [facility] Start: 04-29-2022 End: 04-30-2022 ambulatory DEVEN ORTA Facility:[facility] Start: 04-29-2022 End: 04-29-2022 Patient encounter procedure Deven Orta MD Work Phone: General Surgery Comment on above: Abnormal mammogram ( Primary Dx) Start: 04-29-2022 Telephone encounter Deven miranda MD Work Phone: Mammography Comment on above: Mammogram Result Rodriguez l Back Start: 04-26-2022 End: 04-26-2022 ambulatory DEVEN ORTA Facility:[facility] Start: 04-26-2022 End: 04-26-2022 Patient encounter procedure Deven Orta MD Work Phone: General Surgery Comment on above: Abnormal mammogram ( Primary Dx) Start: 04-20-2022 End: 04-20-2022 ambulatory SOTERO RUIZ Facility:[facility] Start: 03-14-2022 Orders Only Sotero Ruiz MD Work Phone: [facility] Obstetrics & Gynecology Comment on above: Abnormal mammogram ( Primary Dx) Breast imaging furth er testing Start: 02-25-2022 Documentation procedure Mammog andrzej Coordinator [facility] Start: 02-25-2022 Letter encounter Mammography Coordinator [place] [facility] NOT LISTED Start: 02-24-2022 End: 02-24-2022 Subsequent hospital visit by physician Mammo/Bone Density [facility] Start: 02-04-2022 End: 02-04-2022 ambulatory [facility] Work Phone: Start: 02-04-2022 End: 02-04-2022 Patient encounter procedure [facility] Start: 01-31-2022 End: 01-31-2022 Patient encounter procedure Sotero Ruiz MD Work Phone: [facility] Comment on above: Encounter for annual routine gynecological examination (Primary Dx); Encounter for screening mammogram for malignant neoplasm of breast; Encounter for Papanicolaou smear for cervical cancer screening Start: 10-21-2021 End: 10-21-2021 ambulatory [facility] Work Phone: Start: 10-21-2021 End: 10-21-2021 Patient encounter procedure [facility]-Cat Scan, [facility] Start: 09-24-2021 End: 09-24-2021 Patient encounter procedure [facility]-Nuclear Medicine, [facility] Start: 08-12-2021 End: 08-12-2021 Patient encounter procedure [facility]-Ultrasound, [facility] Start: 05-26-2021 End: 05-26-2021 Patient encounter procedure [facility]-Ultrasound, [facility] Start: 04-19-2021 End: 04-19-2021 Admission to same day surgery center [facility]-Surgical Day Care Start: 03-10-2021 End: 03-10-2021 Patient encounter procedure [facility]-Laboratory, [facility] Start: 01-01-2018 Orders Only Sotero Ruiz MD Work Phone: [facility] Obstetrics & Gynecology Comment on above: Abnormal mammogram ( Primary Dx) Procedures Date Procedure Procedure Detail Performing Clinician Start: 11-28-2023 Screening digital br east tomosynthesis bi Sotero Ruiz MD Work Phone: Start: 05-16-2022 BLAIR DIAG W KARISSA Harry MD Work Phone: Start: 05-16-2022 Bx breast w/device 1 st lesion ultrasound guid Deven Orta MD Work Phone: Start: 05-16-2022 Diagnostic radiograp hy of abdomen Start: 02-24-[address] trevor Ruiz MD Work Phone: Start: 02-24-2022 Mammography Mammo/Bone Hosp Start: 10-21-2021 CT of abdomen and pe lvis without contrast Start: 09-24-2021 Renal isotope studies Start: 08-12-2021 US urinary tract Start: 05-26-2021 US urinary tract Start: 04-19-2021 O.R. Fluoro for C-Arm Start: 02-16-2021 Mammography Sotero Ruiz MD Work Phone: Start: 10-06-2016 Colonoscopy Sotero Ruiz MD Work Phone: Plan of Treatment Date Care Activity Detail Author Start: 08-06-2031 Urine microalbumin profile DTaP,Tdap,Td Vaccine (3 - Td or Tdap) [facility] Start: 09-06-2030 RSV Vaccine (1 - 1-d ose 75+ series) RSV Vaccine (1 - 1-dose 75+ series) [facility] Start: 10-06-2026 Colonoscopy COLONOSCOPY [facility] Start: 10-06-2026 COLORECTAL CANCER SCREENING COLORECTAL CANCER SCREENING [facility] Start: 10-06-2026 Screening for malign ant neoplasm of colon [facility] Start: 11-27-2024 Screening for malign ant neoplasm of breast Mammogram Screening [facility] Start: 03-03-2024 DIABETES SCREEN DIABETES SCREEN [facility] Start: 03-03-2024 Diabetes Screening Diabetes Screenin g [facility] Start: 02-12-2024 End: 02-12-2024 Patient encounter procedure 02/12/2024 10:00 AM EST Office Visit [facility] Obstetrics & Gynecology [address] [place] [address] Pap, Sotero Langley MD [address], [place] [id number] annual [facility] Obstetrics & Gynecology Comment on above: annual Start: 11-28-2023 End: 11-28-2023 Patient encounter procedure 11/28/2023 10:30 AM EDT Appointment [facility] [address] [place] [address] [facility] Start: 11-05-2023 Covid-19 Vaccine ( season) Covid-19 Vaccine ( season) [facility] Start: 11-05-2023 Influenza vaccination Influenza Vacc ine (#1) [facility] Start: 03-09-2023 Pneumococcal Vaccine : 65+ (2 of 2 - PCV) Pneumococcal Vaccine: 65+ (2 of 2 - PCV) [facility] Start: 03-06-2023 Advance Directive Discussion Advance Directive Discussion [facility] Start: 02-24-2023 Mammography MAMMOGRAM [facility] Start: 02-24-2023 Screening for malign ant neoplasm of breast Mammogram Screening [facility] Start: 11-23-2022 End: 06-22-2023 Diagnostic mammography computer-aided detcj uni BLAIR DIAGNOSTIC RT Radiology Routine Abnormal mammogram Expected: 11/23/2022, Expires: 06/22/2023 [facility] Work Phone: Comment on above: Expected: 11/23/2022 , Expires: 06/22/2023 Start: 11-04-2022 Covid-19 Vaccine () Covid-19 Vaccine () [facility] Start: 03-06-2022 ADVANCE DIRECTIVE DISCUSSION ADVANCE DIRECTIVE DISCUSSION [facility] Start: 03-06-2022 DEPRESSION ASSESSMENT DEPRESSION ASS ESSMENT [facility] Start: 02-16-2022 Mammography MAMMO[address] [facility] Start: 11-04-2021 Influenza vaccination INFLUENZA (#1) [facility] Start: 09-30-2021 COVID-19 VACCINE (5 - Booster for Moderna series) COVID-19 VACCINE (5 - Booster for Moderna series) [facility] Start: 04-19-2021 Anes transurethral w/urethrocystoscopy nos ANESTH BLADDER SURGERY [facility] Work Phone: Start: 04-19-2021 Cysto/uretero w/lithotripsy &indwell stent insrt CYSTO/URETERO W/LITHOTRIPSY [facility] Work Phone: Start: 03-06-2021 ADVANCE DIRECTIVE DISCUSSION ADVANCE DIRECTIVE DISCUSSION [facility] Start: 03-06-2021 DEPRESSION ASSESSMENT DEPRESSION ASS ESSMENT [facility] Start: 09-06-2020 BONE DENSITY BONE DENSITY [facility] Start: 09-06-2020 PNEUMOCOCCAL: 65+ (1 - PCV) PNEUMOCOCCAL: 65+ (1 - PCV) [facility] Start: 09-06-2020 Screening for osteoporosis Bone Density Screening [facility] Start: 2015 RSV Vaccine (1 - 1-d ose 60+ series) RSV Vaccine (1 - 1-dose 60+ series) [facility] Start: 09-06-2005 SHINGRIX VACCINE (1 of 2) SHINGRIX VACCINE (1 of 2) [facility] Start: 09-06-2000 COLOGUARD (FIT-DNA) COLOGUARD (FIT-D NA) [facility] Start: 09-06-[address] COLONOGRAPHY [facility] Start: 09-06-2000 FECAL OCCULT BLOOD FECAL OCCULT BLOO D [facility] Start: 09-06-2000 Lipid panel Lipid Screening [facility] Start: 09-06-2000 LIPID SCREEN LIPID SCREEN [facility] Start: 09-06-2000 Screening for malign ant neoplasm of colon [facility] Start: 09-06-2000 SIGMOIDOSCOPY SIGMOIDOSCOPY [facility] Start: 09-06-1974 Urine microalbumin profile DTAP,TDAP,TD (1 - Tdap) [facility] Start: 09-06-1973 Anxiety Screening Anxiety Screening [facility] Start: 09-06-1973 Depression Screening Depression Scre ening [facility] End: 05-27-2023 Bx breast w/device 1st lesion ultrasound guid US BIOPSY BREAST RT Radiology Routine Abnormal mammogram 1 Occurrences starting 04/27/2022 until 05/27/2023 [facility] Work Phone: Comment on above: 1 Occurrences starti ng 04/27/2022 until 05/27/2023 End: 05-29-2023 Bx breast w/device 1st lesion ultrasound guid US BIOPSY BREAST RT Radiology Routine Abnormal mammogram 1 Occurrences starting 04/29/2022 until 05/29/2023 [facility] Work Phone: Comment on above: 1 Occurrences starti ng 04/29/2022 until 05/29/2023 End: 11-21-2024 DBT Breast - bilateral screening BLAIR SCREENING W KARISSA Radiology Routine Breast screening 1 Occurrences starting 10/30/2023 until 11/21/2024 [facility] Work Phone: Comment on above: 1 Occurrences starti ng 10/30/2023 until 11/21/2024 End: 04-13-2023 Diagnostic mammography computer-aided detcj uni BLAIR DIAGNOSTIC RT Radiology Routine Abnormal mammogram 1 Occurrences starting 03/14/2022 until 04/13/2023 [facility] Work Phone: Comment on above: 1 Occurrences starti ng 03/14/2022 until 04/13/2023 PAP FLUID CERVICAL SCREENING PAP FLUID CERVICAL SCREENING Lab Routine Encounter for Papanicolaou smear for cervical cancer screening Ordered: 01/31/2022 [facility] Work Phone: Comment on above: Ordered: 01/31/2022 PAP TEST PAP TEST Lab Farhan alcaraz Encounter for Papanicolaou smear for cervical cancer screening 02/12/2024 10:32 AM EST [facility] Work Phone: Patient referral [facility] Work Phone: End: 03-02-2023 Screening mammography bi 2-view breast inc cad BLAIR SCREENING Radiology Routine Encounter for screening mammogram for malignant neoplasm of breast 1 Occurrences starting 01/31/2022 until 03/02/2023 [facility] Work Phone: Comment on above: 1 Occurrences starti ng 01/31/2022 until 03/02/2023 SURGICAL PATHOLOGY [facility] Work Phone: Comment on above: Release Upon Orderin g for 1 Occurrences starting 05/16/2022, 1 completed US BREAST BIOPSY RIG HT (POC) SURG USE ONLY US BREAST BIOPSY RIGHT (POC) SURG USE ONLY Imaging Procedures Routine Abnormal mammogram Ordered: 04/29/2022 [facility] Work Phone: Comment on above: Ordered: 04/29/2022 [facility] Immunizations Immunization Date Immunization Notes Care Provider Fa [facility] 12-12-2022 influenza virus vaccine, unspecified formulation Mammo/Bone Hosp [facility] 12-12-2021 influenza virus vaccine, unspecified formulation Sotero Ruiz MD Work Phone: [facility] 02-05-2021 Covid (Moderna) [facility] Payers Date Payer Category Payer Self-pay [id number] 2020 Medicare HUMANA MEDICARE HUMANA MEDICARE PPO [id number] 2020-Present [id number] [place] [address] PPO [id number] 2020 Medicare [id number] 2017 Unknown [id number] 2011 Private Health Insurance [id number] Unknown [id number] Unknown [id number] Social History Date Type Detail Facility [facility] Work Phone: Start: 04-12-2021 End: 04-12-2021 Tobacco smoking status MAIS Unknown if ever smoked [facility] Start: 1955 Sex Assigned At Female W [facility] Start: 12-25-2017 End: 01-31-2022 Tobacco smoking status NHIS Never smoked tobacco [facility] Start: 12-25-2017 End: 01-31-2022 Tobacco use and exposure Smokeless tobacco non-user [facility] Start: 01-31-2022 End: 02-12-2024 Alcohol intake Current drinker of alcohol (finding) [facility] Start: 1955 Sex Assigned At Not on file [facility] Start: 01-21-2022 End: 01-31-2022 Exposure to SARS-CoV-2 (event) Not sure [facility] Start: 05-23-2022 End: 11-28-2023 History of Social function [facility] Start: 05-23-2022 End: 11-28-2023 Tobacco use panel [facility] National Score (1-100), lower number is lower risk [address] [facility] Medical Equipment Procedure Code Equipment Code Equipment Origin al Text Equipment Identifier Dates Cystoscopy, with retrograde pyelogram, ureteroscopy, laser procedure, and stent inser STENT,URETERAL PIGTAIL [id number] FDA Start: 04-19-2021 Cystoscopy, with retrograde pyelogram, ureteroscopy, laser procedure, and stent inser STENT,URETERAL PIGTAIL [id number] FDA Start: 04-19-2021 Cystoscopy, with retrograde pyelogram, ureteroscopy, laser procedure, and stent inser STENT,URETERAL PIGTAIL [id number] FDA Start: 04-19-2021 Cystoscopy, with retrograde pyelogram, ureteroscopy, laser procedure, and stent inser STENT,URETERAL PIGTAIL [id number] FDA Start: 04-19-2021 Cystoscopy, with retrograde pyelogram, ureteroscopy, laser procedure, and stent inser STENT,URETERAL PIGTAIL [id number] FDA Start: 04-19-2021 Cystoscopy, with retrograde pyelogram, ureteroscopy, laser procedure, and stent inser STENT,URETERAL PIGTAIL [id number] FDA Start: 04-19-2021 Cystoscopy, with retrograde pyelogram, ureteroscopy, laser procedure, and stent inser STENT,URETERAL PIGTAIL [id number] FDA Start: 04-19-2021 ([id number]) Metal-backed patella prosthesis ()[id number] FDA Start: 11-02-2020 ([id number]) Coated knee femu r prosthesis ()[id number] FDA Start: 11-02-2020 ([id number]) Coated knee tibi a prosthesis ()[id number] FDA Start: 11-02-2020 ([id number]) Tibial insert [id number] FDA Start: 11-02-2020 Functional Status Date Assessment Result Facility 04-19-2021 Functional status [facility] Work Phone: Mental Status Date Assessment Result Facility 04-19-2021 Cognitive function Voice/Name [facility] Work Phone: 04-19-2021 Cognitive function Patient Jam ricci Person;Place;Time [facility] Work Phone: Clinical Notes 01-31-2022 to 02-12-2024 Pap, Sotero Langley MD - 02/12/2024 10:24 AM ESTPapSotero MD - 02/12/2024 10:24 AM ESTLetter - Coordinator, Mammography - 11/29/2023 12:31 PM Nisreen Fritz LPN - 04/26/2022 10:03 AM EST Note Date & Type Note Facility 02-12-2024 History and physical note Sara Mercado is a 68 year old female who presents for annual exam. 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 Recent breast biopsy showed fibroadenoma. Complete exam with Dr. Roes last week. Due for pap. ALLERGIES Allergen [...] SURGICAL HISTORY Procedure Laterality Date ARTHRP KNE CONDYLE&PLATU MEDIAL&LAT COMPARTMENTS Right BIOPSY BREAST OPEN INCISIONAL Bx of breast, incisional DELIVERY ONLY , low cervical NEUROPLASTY &/TRANSPOS MEDIAN NRV CARPAL TUNNE Carpal tunnel decomp [...] breast and pelvic exam BREAST: without masses FRUIT OR NUT FARMER: Vulva - normal, Vagina - normal - cervix parous, Pap done, Uterus - midplane, adnexa neg Assessment -- normal exam RTO one year Sotero Ruiz MD [facility] 02-12-2024 History and physical note Sara Mercado is a 68 year old female who presents for annual exam. 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 Recent breast biopsy showed fibroadenoma. [...] SURGICAL HISTORY Procedure Laterality Date ARTHRP KNE CONDYLE&PLATU MEDIAL&LAT COMPARTMENTS Right BIOPSY BREAST OPEN INCISIONAL Bx of breast, incisional DELIVERY ONLY , low cervical NEUROPLASTY &/TRANSPOS MEDIAN NRV CARPAL TUNNE Carpal tunnel decomp [...] breast and pelvic exam BREAST: without masses FRUIT OR NUT FARMER: Vulva - normal, Vagina - normal - cervix parous, Pap done, Uterus - midplane, adnexa neg Assessment -- normal exam RTO one year Sotero Ruiz MD documented in this encounter [facility] 11-29-2023 Note Formatting of this n ote might be different from the original. [address] [address] November 29, 2023 PID: [id number] [place] [address] Dear Ms. Mercado, We are pleased to inform you that the results of your recent breast imaging exam on 11/28/2023 are normal. Breast tissue can be either dense or not dense. Dense tissue makes it harder to find breast cancer on a mammogram and also raises the risk of developing breast cancer. Your breast tissue is not dense. Talk to your healthcare provider about breast density, risks for breast cancer, and your individual situation. Early detection of cancer is very important. We also understand recommendations regarding breast cancer screening are controversial. Please discuss with your primary care provider which strategy is best for you and whether a mammogram is right for you. Your imaging studies and report will be kept on file at [facility] as part of your permanent medical record and are available for your continuing care. Thank you for allowing us to help in meeting your health care needs. Sincerely, Dr. Deutsch Interpreting Radiologist [facility] (Normal over 40) [facility] 11-29-2023 Miscellaneous Notes [address] [address] November 29, 2023 PID: [id number] Sara Mercado [address] [place] [id number] Dear Ms. Mercado, We are pleased to inform you that the results of your recent breast imaging exam on 11/28/2023 are normal. Breast tissue can be either dense or not dense. Dense tissue makes it harder to find breast cancer on a mammogram and also raises the risk of developing breast cancer. Your breast tissue is not dense. Talk to your healthcare provider about breast density, risks for breast cancer, and your individual situation. Early detection of cancer is very important. We also understand recommendations regarding breast cancer screening are controversial. Please discuss with your primary care provider which strategy is best for you and whether a mammogram is right for you. Your imaging studies and report will be kept on file at [facility] as part of your permanent medical record and are available for your continuing care. Thank you for allowing us to help in meeting your health care needs. Sincerely, Dr. Deutsch Interpreting Radiologist [facility] (Normal over 40) documented in this encounter [facility] 11-28-2023 History of Presen t illness Narrative Radiology Service Progress Note PATIENT NAME: Sara Mercado DATE OF SERVICE: November 28, 2023 TIME: 10:47 AM PATIENT IDENTITY VERIFICATION COMPLETED USING TWO (2) IDENTIFIERS: Name and Date of confirmed by patient verbally. FALL SCREENING: Has the patient had 2 falls in the last year or 1 fall with injury or currently using an Ambulatory Assistive Device (Walker, Cane, Wheelchair, Crutches, etc.)? No PATIENT GENDER DATA: Female. status: : No status: N/A PATIENT RELEVANT IMPLANT DATA REVIEWED: Not Applicable PATIENT PRESENTS WITH AN IMPLANTABLE OR ATTACHED ATTENDANT SELF SERVICE STORE: No RADIOLOGY DEPARTMENT: Mammography PERIPHERAL IV DATA: Not applicable SIGNED BY: RT Lillie(Nestor) November 28, 2023 10:47 AM documented in this encounter [facility] 11-28-2023 Note HNO ID: [id number] Author: SONIA ALVES RT (R) Service: Radiology Author Type: Technologist Type: Progress Notes Filed: 11/28/2023 10:47 Note Text: Radiology Service Progress Note PATIENT NAME: Sara Mercado DATE OF SERVICE: November 28, 2023 TIME: 10:47 AM PATIENT IDENTITY VERIFICATION COMPLETED USING TWO (2) IDENTIFIERS: Name and Date of confirmed by patient verbally. FALL SCREENING: Has the patient had 2 falls in the last year or 1 fall with injury or currently using an Ambulatory Assistive Device (Walker, Cane, Wheelchair, Crutches, etc.)? No PATIENT GENDER DATA: Female. status: : No status: N/A PATIENT RELEVANT IMPLANT DATA REVIEWED: Not Applicable PATIENT PRESENTS WITH AN IMPLANTABLE OR ATTACHED ATTENDANT SELF SERVICE STORE: No RADIOLOGY DEPARTMENT: Mammography PERIPHERAL IV DATA: Not applicable SIGNED BY: RT Lillie(R) November 28, 2023 10:47 AM [facility] 10-30-[address] Ruiz signed order. Jack Nielson RN [facility] 10-30-[address] Ruiz signed order. Jack Nielson RN Order pended. Thank you, Jack Nielson RN Neen: This pt is Pap's in [place]-Annual schdld 02/12/24 (medicare pt) but mammo w/ karissa is due 11/24/23-She had spcl imaging and a biopsy since documented in this encounter [facility] 10-23-2023 Telephone encounter Note Order pended. Thank you, Jack Nielson RN Neen: This pt is Pap's in [place]-Annual schdld 02/12/24 (medicare pt) but mammo w/ karissa is due 11/24/23-She had spcl imaging and a biopsy since [facility] 11-23-2022 Note HNO ID: [id number] Author: Giovani Hussein Mammo Tech Service: ? Author Type: Technologist Type: Progress Notes Filed: 11/23/2022 11:39 AM Note Text: Radiology Service Progress Note PATIENT NAME: Sara Mercado DATE OF SERVICE: November 23, 2022 TIME: 10:52 AM PATIENT IDENTITY VERIFICATION COMPLETED USING TWO (2) IDENTIFIERS: Name and Date of confirmed by patient verbally. FALL SCREENING: Has the patient had 2 falls in the last year or 1 fall with injury or currently using an Ambulatory Assistive Device (Walker, Cane, Wheelchair, Crutches, etc.)? No PATIENT GENDER DATA: Female. status: : No status: NO. PATIENT RELEVANT IMPLANT DATA REVIEWED: Not Applicable RADIOLOGY DEPARTMENT: Mammography PERIPHERAL IV DATA: Not applicable SIGNED BY: Giovani Hussein [email or web address] GTxcel November 23, 2022 10:52 AM [facility] 05-23-2022 Note HNO ID: [id number] Author: Deven Orta MD Service: ? Author Type: Physician Type: Progress Notes Filed: 05/23/2022 3:31 PM Note Text: Subjective: Patient is status post an ultrasound-guided right needle core biopsy on 05/16/2022. This was done for lesion at the 6 o'clock position 1 cm from the nipple areolar complex this came back as a benign fibroadenomatoid nodule. Objective:Blood pressure 132/78, pulse (!) 56, temperature 36.2 ?C (97.2 ?F), height 172.7 cm (5' 8), weight 102.5 kg (226 lb), SpO2 97 %. Biopsy site is clean without signs of infection Assessment: Fibroadenoma right breast Plan: Patient will need a 6-month follow-up mammogram on the right side orders have been written and she can follow-up with me on an as-needed basis. [facility] 05-23-2022 History of Presen t illness Narrative Subjective: Patient is status post an ultrasound-guided right needle core biopsy on 05/16/2022. This was done for lesion at the 6 o'clock position 1 cm from the nipple areolar complex this came back as a benign fibroadenomatoid nodule. Objective:Blood pressure 132/78, pulse (!) 56, temperature 36.2 C (97.2 F), height 172.7 cm (5' 8), weight 102.5 kg (226 lb), SpO2 97 %. Biopsy site is clean without signs of infection Assessment: Fibroadenoma right breast Plan: Patient will need a 6-month follow-up mammogram on the right side orders have been written and she can follow-up with me on an as-needed basis. documented in this encounter [facility] 05-19-2022 Miscellaneous Notes Called patient to notify the breast pathology results were benign per Dr. Hughes. Informed patient a 6 month follow up is recommended. Patient verbalized understanding. documented in this encounter [facility] 05-16-2022 Note HNO ID: [id number] Author: CHRIS Hayward Service: Radiology Author Type: Technologist Type: Patient Education Filed: 05/16/2022 2:03 PM Note Text: Patient provided At Home Instructions pamphlet which was verbally reviewed by mamm tech. [facility] 05-16-2022 Miscellaneous Notes Patient provided At Home Instructions pamphlet which was verbally reviewed by [facility] tech. documented in this encounter [facility] 04-29-2022 Note HNO ID: [id number] Author: Deven Orta MD Service: ? Author Type: Physician Type: Progress Notes Filed: 04/29/2022 3:03 PM Note Text: I was unable to visualize the lesion at the 6 o'clock position on the right breast. I am going to get her scheduled for an ultrasound-guided needle core biopsy of her right breast in the radiology department at a tertiary referral center. [facility] 04-29-2022 History of Presen t illness Narrative I was unable to visualize the lesion at the 6 o'clock position on the right breast. I am going to get her scheduled for an ultrasound-guided needle core biopsy of her right breast in the radiology department at a tertiary referral center. documented in this encounter [facility] 04-26-2022 Note HNO ID: [id number] Author: Deven Orta MD Service: ? Author Type: Physician Type: Progress Notes Filed: 04/26/2022 11:32 AM Note Text: HISTORY AND PHYSICAL - BREAST COMPLAINT Sara Mercado 1955 REFERRING PHYSICIAN: No ref. provider found CHIEF COMPLAINT: Abnormal mammogram (primary encounter diagnosis) HPI: The patient is a 66 year old female with a complaint of an abnormal mammogram. The patient had a mammogram with ultrasound on 04/20/22 which demonstrated : IMPRESSION: SUSPICIOUS FINDING - BIOPSY SHOULD BE CONSIDERED The 0.3 cm x 0.3 cm x 0.2 cm oval mass in the right breast is suspicious of malignancy. An ultrasound guided biopsy is recommended. The patient denies a history of breast masses. She does perform a self breast exam routinely. She notes no skin changes. She denies nipple discharge. She notes no axillary masses. She notes no family history of breast problems. She notes no significant breast trauma or breast difficulties in the past. PAST MEDICAL HISTORY Diagnosis Date Chronic depressive [...] PAST SURGICAL HISTORY OF Left knee replacement Current Outpatient Medications Medication Sig Dispense Refill calcium carbonate 600 mg-cholecalciferol 400 units 600 [...] Take 50 mg by mouth twice daily. 0 sertraline hcl(ZOLOFT 50 MG TAB) Take one(1) tablet daily. 0 tamsulosin (FLOMAX) 0.4 mg Take 1 capsule by mouth once daily. Follow up with Urology for refills 30 capsule 0 acetaminophen (TYLENOL) 325 mg tablet Take 2 tablets by mouth every 4 hours as needed for fever (specify). (Patient not taking: Reported on 04/26/2022) oxyCODONE-acetaminophen (PERCOCET) 5-325 mg tablet Take 1 tablet by mouth every 4 hours as needed for up to 10 doses. 10 tablet 0 Docosahexanoic Acid-Eicosapent 120-180 mg capsule Take 1,000 mg by mouth. No current facility-administered medications for this visit. ALLERGIES: Penicillins PERSONAL HISTORY: Social History Tobacco Use Smoking status: Never Smokeless tobacco: Never Vaping Use Vaping Use: Never used Substance Use Topics Alcohol use: Yes Comment: occ Drug use: Never FAMILY HISTORY: FAMILY HISTORY Problem Relation Age of Onset Aneurysm Mother Stroke Mother Cancer Father lung REVIEW OF SYMPTOMS: The review of systems data was entered by the nurse and reviewed by me Nursing Notes: Ekaterina Fritz LPN 04/26/2022 10:06 AM Signed REVIEW OF SYSTEMS: General: The patient denies fatigue, denies weight loss, notes weight gain, denies feeling hot, and denies feelings of cold. Eyes: The patient denies glaucoma, denies eye injury/surgery, wears glasses or contacts. Ear/Nose/Throat: The patient notes allergies, denies hayfever, denies ear infections, and denies bloody noses. Cardiovascular: The patient denies chest pain, denies heart disease, notes high blood pressure,denies cardiac stent, denies prior heart attack, denies irregular heart beat, notes high cholesterol, denies poor circulation, denies heart failure, other cardiac issues, denies claudication, denies cold feet, denies peripheral arterial stent. Respiratory: The patient denies tuberculosis, denies pneumonia, notes frequent cough, denies pulmonary embolism, denies shortness of breath, and denies coughing up blood. Gastrointestinal: The patient denies difficulty swallowing, denies acid reflux, denies ulcers, denies vomiting, denies jaundice/hepatitis, denies gallbladder problems, denies black or tarry stools, denies hemorrhoids, denies bleeding from rectum, denies diverticulitis, denies constipation, denies diarrhea, denies loss of stool control, and denies hernias. Kidney/Bladder: The patient notes kidney stones, denies urine infections, and denies bloody urine. Skin: The patient notes a history of skin cancer, denies bleeding/changing moles, and denies a history of skin rash. Neurologic: The patient denies a history of epilepsy/convulsions, denies headaches, denies head/spinal injuries, and denies stroke/TIA. Psychiatric: The patient denies psychiatric medications, notes depression, and denies voices, denies substance abuse. End (more content not included)... [facility] 04-26-2022 History of Presen t illness Narrative HISTORY AND PHYSICAL - BREAST COMPLAINT Sara Mercado 1955 REFERRING PHYSICIAN: No ref. provider found CHIEF COMPLAINT: Abnormal mammogram (primary encounter diagnosis) HPI: The patient is a 66 year old female with a complaint of an abnormal mammogram. The patient had a mammogram with ultrasound on 04/20/22 which demonstrated : IMPRESSION: SUSPICIOUS FINDING - BIOPSY SHOULD BE CONSIDERED The 0.3 cm x 0.3 cm x 0.2 cm oval mass in the right breast is suspicious of malignancy. An ultrasound guided biopsy is recommended. The patient denies a history of breast masses. She does perform a self breast exam routinely. She notes no skin changes. She denies nipple discharge. She notes no axillary masses. She notes no family history of breast problems. She notes no significant breast trauma or breast difficulties in the past. PAST MEDICAL HISTORY Diagnosis Date Chronic depressive personality disorder Essential hypertension, benign Kidney stone 02/27/2021 Sepsis (HCC) 02/27/2021 PAST SURGICAL HISTORY Procedure Laterality Date ARTHRP KNE CONDYLE&PLATU MEDIAL&LAT COMPARTMENTS Right BIOPSY BREAST OPEN INCISIONAL Bx of breast, incisional DELIVERY ONLY , low cervical NEUROPLASTY &/TRANSPOS MEDIAN NRV CARPAL TUNNE Carpal tunnel decomp PAST SURGICAL HISTORY OF melanoma PAST SURGICAL HISTORY OF Left knee replacement Current Outpatient Medications Medication Sig Dispense Refill calcium carbonate 600 mg-cholecalciferol 400 units 600 [...] Take 50 mg by mouth twice daily. 0 sertraline hcl(ZOLOFT 50 MG TAB) Take one(1) tablet daily. 0 tamsulosin (FLOMAX) 0.4 mg Take 1 capsule by mouth once daily. Follow up with Urology for refills 30 capsule 0 acetaminophen (TYLENOL) 325 mg tablet Take 2 tablets by mouth every 4 hours as needed for fever (specify). (Patient not taking: Reported on 04/26/2022) oxyCODONE-acetaminophen (PERCOCET) 5-325 mg tablet Take 1 tablet by mouth every 4 hours as needed for up to 10 doses. 10 tablet 0 Docosahexanoic Acid-Eicosapent 120-180 mg capsule Take 1,000 mg by mouth. No current facility-administered medications for this visit. ALLERGIES: Penicillins PERSONAL HISTORY: Social History Tobacco Use Smoking status: Never Smokeless tobacco: Never Vaping Use Vaping Use: Never used Substance Use Topics Alcohol use: Yes Comment: occ Drug use: Never FAMILY HISTORY: FAMILY HISTORY Problem Relation Age of Onset Aneurysm Mother Stroke Mother Cancer Father lung REVIEW OF SYMPTOMS: The review of systems data was entered by the nurse and reviewed by me Nursing Notes: Ekaterina Fritz LPN 04/26/2022 10:06 AM Signed REVIEW OF SYSTEMS: General: The patient denies fatigue, denies weight loss, notes weight gain, denies feeling hot, and denies feelings of cold. Eyes: The patient denies glaucoma, denies eye injury/surgery, wears glasses or contacts. Ear/Nose/Throat: The patient notes allergies, denies hayfever, denies ear infections, and denies bloody noses. Cardiovascular: The patient denies chest pain, denies heart disease, notes high blood pressure,denies cardiac stent, denies prior heart attack, denies irregular heart beat, notes high cholesterol, denies poor circulation, denies heart failure, other cardiac issues, denies claudication, denies cold feet, denies peripheral arterial stent. Respiratory: The patient denies tuberculosis, denies pneumonia, notes frequent cough, denies pulmonary embolism, denies shortness of breath, and denies coughing up blood. Gastrointestinal: The patient denies difficulty swallowing, denies acid reflux, denies ulcers, denies vomiting, denies jaundice/hepatitis, denies gallbladder problems, denies black or tarry stools, denies hemorrhoids, denies bleeding from rectum, denies diverticulitis, denies constipation, denies diarrhea, denies loss of stool control, and denies hernias. Kidney/Bladder: The patient notes kidney stones, denies urine infections, and denies bloody urine. Skin: The patient notes a history of skin cancer, denies bleeding/changing moles, and denies a history of skin rash. Neurologic: The patient denies a history of epilepsy/convulsions, denies headaches, denies head/spinal injuries, and denies stroke/TIA. Psychiatric: The patient denies psychiatric medications, notes depression, and denies voices, denies substance abuse. Endocrine: The patient denies thyroid disorders, denies diabetes, and denies hormonal problems. Hematologic: The patient denies a history of bruising, denies bleeding, and denies anemia, denies blood clots. Infections: The patient denies a history of measles and mumps, denies rheumatic fever, and denies sexually transmitted diseases. Musculoskeletal: The patient denies back pain/injury, denies back problems, denies sciatica, notes knee/foot trouble, denies arthritis, or denies gout. When was patient's last Mammogram screening? 2021 Last Colonoscopy: 2016 Ekaterina Fritz LPN PHYSICAL EXAMINATION: General: The patient is 66 year old female, well nourished, well hydrated in no acute distress. The patient is oriented to time, place, and person. VITALS: Blood pressure 152/90, pulse 70, temperature 36.6 C (97.8 F), height 172.7 cm (5' 8), weight 101.6 kg (224 lb), SpO2 96 %. Body mass index is 34.06 kg/m . HEENT: Normal cephalic, ataumatic, pupils are equally round, sclera are anicteric, mucous membranes are moist, oropharynx is clear. Neck has no masses, asymmetry or lymphadenopathy. Thyroid is unremarkable. Respiratory: Clear to auscultation and percussion. Normal respiratory excursion and pattern. Cardiac: Examination is regular rate and rhythm. Abdominal exam: Soft, nontender, with no palpable masses. No hepatosplenomegaly. No palpable hernias. Rectal exam: exam deferred Extremities: no clubbing, cyanosis or edema. No adenopathy. Breast: Visual inspection reveals no retractions, nipple inversion, or skin changes. Palpation of the right breast reveals no dominant or suspicious masses. Palpation of the left breast reveals no dominant or suspicious masses. Axillary exam demonstrates no suspicious masses in either the left or right axilla. There is no nipple discharge expressed from either the left or right breast. LABORATORY VALUES: As Noted RADIOLOGIC STUDIES: Assessment IMPRESSION: Abnormal mammogram (primary encounter diagnosis) PLAN: I plan to perform a ultrasound guided mammotome core biopsy of the right breast. The planned surgical procedure was discussed extensively with the patient. The risks, benefits, anticipated outcomes and possible complications were mentioned. My staff has also explained the procedure in understandable terms and the patient was given the option to take printed material concerning the planned procedure. The patient had the opportunity to ask questions concerning the planned procedure. The patient freely consents to the planned procedure. Diagnoses: (R92.8) Abnormal mammogram (primary encounter diagnosis) Return to Clinic: The patient is instructed to follow-up with me after the testing has been completed. Deven Orta III, MD documented in this encounter [facility] 04-26-2022 Nurse Note REVIEW OF SYSTEMS: General: The patient denies fatigue, denies weight loss, notes weight gain, denies feeling hot, and denies feelings of cold. Eyes: The patient denies glaucoma, denies eye injury/surgery, wears glasses or contacts. Ear/Nose/Throat: The patient notes allergies, denies hayfever, denies ear infections, and denies bloody noses. Cardiovascular: The patient denies chest pain, denies heart disease, notes high blood pressure,denies cardiac stent, denies prior heart attack, denies irregular heart beat, notes high cholesterol, denies poor circulation, denies heart failure, other cardiac issues, denies claudication, denies cold feet, denies peripheral arterial stent. Respiratory: The patient denies tuberculosis, denies pneumonia, notes frequent cough, denies pulmonary embolism, denies shortness of breath, and denies coughing up blood. Gastrointestinal: The patient denies difficulty swallowing, denies acid reflux, denies ulcers, denies vomiting, denies jaundice/hepatitis, denies gallbladder problems, denies black or tarry stools, denies hemorrhoids, denies bleeding from rectum, denies diverticulitis, denies constipation, denies diarrhea, denies loss of stool control, and denies hernias. Kidney/Bladder: The patient notes kidney stones, denies urine infections, and denies bloody urine. Skin: The patient notes a history of skin cancer, denies bleeding/changing moles, and denies a history of skin rash. Neurologic: The patient denies a history of epilepsy/convulsions, denies headaches, denies head/spinal injuries, and denies stroke/TIA. Psychiatric: The patient denies psychiatric medications, notes depression, and denies voices, denies substance abuse. Endocrine: The patient denies thyroid disorders, denies diabetes, and denies hormonal problems. Hematologic: The patient denies a history of bruising, denies bleeding, and denies anemia, denies blood clots. Infections: The patient denies a history of measles and mumps, denies rheumatic fever, and denies sexually transmitted diseases. Musculoskeletal: The patient denies back pain/injury, denies back problems, denies sciatica, notes knee/foot trouble, denies arthritis, or denies gout. When was patient's last Mammogram screening? 2021 Last Colonoscopy: 2016 Ekaterina Fritz LPN documented in this encounter [facility] 04-20-2022 Note HNO ID: [id number] Author: Kristal Dietrich RDMS Service: ? Author Type: Solar Photovoltaic Installer Type: Progress Notes Filed: 04/20/2022 4:37 PM Note Text: Radiology Service Progress Note PATIENT NAME: Sara Mercado DATE OF SERVICE: April 20, 2022 TIME: 4:37 PM PATIENT IDENTITY VERIFICATION COMPLETED USING TWO (2) IDENTIFIERS: Name and Date of confirmed by patient verbally. FALL SCREENING: Has the patient had 2 falls in the last year or 1 fall with injury or currently using an Ambulatory Assistive Device (Walker, Cane, Wheelchair, Crutches, etc.)? No PATIENT GENDER DATA: Female. status: : No status: NO. PATIENT RELEVANT IMPLANT DATA REVIEWED: Not Applicable RADIOLOGY DEPARTMENT: Ultrasound PERIPHERAL IV DATA: Not applicable SIGNED BY: Kristal Dietrich RDMS RVT April 20, 2022 4:37 PM [facility] 04-20-2022 Note HNO ID: [id number] Author: Miroslava Yerian, RT(R) Service: ? Author Type: Technologist Type: Progress Notes Filed: 04/20/2022 3:26 PM Note Text: Radiology Service Progress Note PATIENT NAME: Sara Mercado DATE OF SERVICE: April 20, 2022 TIME: 3:26 PM PATIENT IDENTITY VERIFICATION COMPLETED USING TWO (2) IDENTIFIERS: Name and Date of confirmed by patient verbally. FALL SCREENING: Has the patient had 2 falls in the last year or 1 fall with injury or currently using an Ambulatory Assistive Device (Walker, Cane, Wheelchair, Crutches, etc.)? No PATIENT GENDER DATA: Female. status: : No status: NO. PATIENT RELEVANT IMPLANT DATA REVIEWED: Not Applicable RADIOLOGY DEPARTMENT: Mammography PERIPHERAL IV DATA: Not applicable SIGNED BY: RT Alex(R) April 20, 2022 3:26 PM [facility] 03-14-2022 Miscellaneous Notes Pended diagnostic mammo and US of the right breast. Kaylene Fatima RN March 14, 2022 10:27 AM documented in this encounter [facility] 02-25-2022 Miscellaneous Notes [address] [address] February 25, 2022 PID: [id number] Sara Chavezralphmeghana [address] [place] [id number] Dear Ms. Mercado, Your recent breast imaging exam on 02/24/2022 showed a possible finding that requires additional imaging studies for a complete evaluation. Most such findings are probably benign (not cancer). If you have a healthcare provider who ordered/prescribed your screening mammogram: Please call [phone] to schedule an appointment for your additional imaging (if you have not already done so). If you DO NOT have a healthcare provider (ie you did not have an order/prescription for your screening mammogram): Please call [phone] to schedule an appointment for your additional imaging (if you have not already done so). You must have an order / prescription from your physician when calling to schedule your appointment. If your order / prescription is not electronic, you must bring the hard copy with you on the day of your exam to avoid rescheduling your exam. Your imaging studies and reports are kept on file at [facility] as part of your permanent medical record, and are available for your continuing care. Thank you for allowing us to help in meeting your health care needs. Sincerely, Dr. Miranda Interpreting Radiologist [facility] (Additional imaging) documented in this encounter [facility] 02-24-2022 History of Presen t illness Narrative Radiology Service Progress Note PATIENT NAME: Sara Mercado DATE OF SERVICE: February 24, 2022 TIME: 11:02 AM PATIENT IDENTITY VERIFICATION COMPLETED USING TWO (2) IDENTIFIERS: Name and Date of confirmed by patient verbally. FALL SCREENING: Has the patient had 2 falls in the last year or 1 fall with injury or currently using an Ambulatory Assistive Device (Walker, Cane, Wheelchair, Crutches, etc.)? No PATIENT GENDER DATA: Female. status: : No status: N/A PATIENT RELEVANT IMPLANT DATA REVIEWED: Not Applicable RADIOLOGY DEPARTMENT: Mammography PERIPHERAL IV DATA: Not applicable SIGNED BY: RT Lillie(Nestor) February 24, 2022 11:02 AM documented in this encounter [facility] 01-31-2022 History and physical note Sara Mercado is a 66 year old female who presents for annual exam. Due for mammogram and pap. Last year at [facility] got a kidney stone which required a stent. She then got sepsis and was hospitalized. Now doing well. 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 ALLERGIES Allergen Reactions Penicillins Current Outpatient Medications Medication Sig calcium carbonate 600 mg-cholecalciferol 400 units 600 mg-10 mcg (400 unit) tab Take by mouth. aspirin 81 mg chewable tablet Take 1 tablet by mouth once daily. Follow up with pcp for refill recommendations acetaminophen (TYLENOL) 325 mg tablet Take 2 tablets by mouth every 4 hours as needed for fever (specify). pravastatin sodium (PRAVASTATIN ORAL) Take 20 mg by mouth. metoprolol succinate(TOPROL XL 50 MG 24 HR TAB) Take one(1) tablet daily. sertraline hcl(ZOLOFT 50 MG TAB) Take one(1) tablet daily. lisinopril (ZESTRIL, PRINIVIL) 10 mg tablet tamsulosin (FLOMAX) 0.4 mg Take 1 capsule by mouth once daily. Follow up with Urology for refills oxyCODONE-acetaminophen (PERCOCET) 5-325 mg tablet Take 1 [...] SURGICAL HISTORY Procedure Laterality Date ARTHRP KNE CONDYLE&PLATU MEDIAL&LAT COMPARTMENTS Right BIOPSY BREAST OPEN INCISIONAL Bx of breast, incisional DELIVERY ONLY , low cervical NEUROPLASTY &/TRANSPOS MEDIAN NRV CARPAL TUNNE Carpal tunnel decomp PAST SURGICAL HISTORY OF melanoma PAST SURGICAL HISTORY OF Left knee replacement Social History Tobacco Use Smoking status: Never Smokeless tobacco: Never Substance Use Topics Alcohol use: Yes Comment: occ Drug use: Never FAMILY HISTORY Problem Relation Age of Onset Aneurysm Mother Stroke Mother Cancer Father lung Review of Symptoms See [place] Objective BP 139/59 Pulse 51 Temp (Src) 96.8 (Skin) Ht 5' 8 (1.73m) Wt 214 lb (97.1kg) SpO2 99% BMI 32.55 kg/(m^2). Physical Exam - restricted to breast and pelvic exam BREAST-without masses PELVIC - Vulva - normal, Vagina - normal, atrophic- cervix atrophic, Pap done, Uterus - midplane, adnexa neg ASSESSMENT/PLAN: 1. Encounter for annual routine gynecological examination - ICD9: V72.31, ICD10: Z01.419 (primary diagnosis) - Completed pelvic and breast exam - Encouraged monthly BSE - Follow up for annual exam in one year. 2. Encounter for screening mammogram for malignant neoplasm of breast - ICD9: V76.12, ICD10: Z12.31 - Completed pelvic and breast exam - Encouraged monthly BSE - Follow up for annual exam in one year. - BLAIR SCREENING 3. Encounter for Papanicolaou smear for cervical cancer screening - ICD9: V76.2, ICD10: Z12.4 - Completed pelvic and breast exam - Encouraged monthly BSE - Follow up for annual exam in one year. - PAP FLUID CERVICAL SCREENING Sotero Ruiz MD documented in this encounter [facility] Evaluation note Diagnosis Onset Date Ureteral calculus acute [facility] Work Phone: evaluation noteNo assessment information available [facility] Work Phone: evaluation note* Diagnosis Encounter for annual routine gynecological examination- Primary Encounter for screening mammogram for malignant neoplasm of breast Other screening mammogram Encounter for Papanicolaou smear for cervical cancer screening [facility] Diagnosis Encounter for screening mammogram for malignant neoplasm of breast Other screening mammogram [facility] Diagnosis Abnormal mammogram- Primary Abnormal mammogram, unspecified [facility] Diagnosis Abnormal mammogram- Primary Abnormal mammogram, unspecified [facility] Diagnosis Abnormal mammogram- Primary Abnormal mammogram, unspecified [facility] Diagnosis Abnormal mammogram- Primary Abnormal mammogram, unspecified [facility] Diagnosis Abnormal mammogram Abnormal mammogram, unspecified [facility] [place] [facility] Diagnosis Abnormal mammogram- Primary Abnormal mammogram, unspecified [facility] Diagnosis Breast screening- Primary Breast screening, unspecified [facility] Diagnosis Breast screening Breast screening, unspecified [facility] Diagnosis Encounter for annual routine gynecological examination- Primary Encounter for Papanicolaou smear for cervical cancer screening [facility] Diagnostic Procedure Only (Routine) - Authorized Specialty Diagnoses / Procedures Referred By Contac t Referred To Contact [facility] Diagnoses Encounter for screening mammogram for malignant neoplasm of breast Procedures BLAIR SCREENING SCREENING MAMMOGRAPHY BI 2-VIEW BREAST INC CAD Pap, Sotero Farshad, MD [address] [place] [id number] [facility] [address] [place] [address] Referral ID Status Reason Start Date Expiration Date Visits Requested Visits Authorized [id number] Authorized Auto-Generat ed Referral 03/02/2023 1 1 [facility] for referral (narrative)* Diagnostic Procedure Only (Routine) - Pending Review Specialty Diagnoses / Procedures Referred By Contac t Referred To Contact [facility] Diagnoses Abnormal mammogram Procedures BLAIR DIAGNOSTIC RT DIAGNOSTIC MAMMOGRAPHY COMPUTER-AIDED DETCJ UNI Sotero Ruiz MD [address] [place] [address] [facility] [address] [place] [address] Referral ID Status Reason Start Date Expiration Date Visits Requested Visits Authorized [id number] Pending Review Auto-Generat ed Referral 03/14/2022 04/13/2023 1 1 [facility] for referral (narrative)* Diagnostic Procedure Only (Routine) - Pending Review Specialty Diagnoses / Procedures Referred By Contac t Referred To Contact [facility] Diagnoses Abnormal mammogram Procedures US BIOPSY BREAST RT BX BREAST W/DEVICE 1ST [facility]ES[facility] ULTRASOUND GUID Sotero Ruiz MD [address] [place] [address] [facility] [address] [place] [address] Referral ID Status Reason Start Date Expiration Date Visits Requested Visits Authorized [id number] Pending Review Auto-Generat ed Referral 04/27/2022 05/27/2023 1 1 [facility] for referral (narrative)* Diagnostic Procedure Only (Routine) - Authorized Specialty Diagnoses / Procedures Referred By Contac t Referred To Contact [facility] Diagnoses Abnormal mammogram Procedures US BIOPSY BREAST RT BX BREAST W/DEVICE 1ST [facility] ULTRASOUND Deven Hall, MD [address] [place] [address] [facility] [address] [place] [address] Referral ID Status Reason Start Date Expiration Date Visits Requested Visits Authorized [id number] Authorized Auto-Generat ed Referral 04/29/2022 05/29/2023 1 1 [facility] for referral (narrative)* Diagnostic Procedure Only (Routine) - Closed Specialty Diagnoses / Procedures [facility] Diagnoses Abnormal mammogram Procedures US BIOPSY BREAST RT BX BREAST W/DEVICE 1ST [facility] ULTRASOUND [facility] Deven Orta MD [address] [place] [address] [facility] [address] [place] [address] Referral ID Status Reason Start Date Expiration Date V isits Requested Visits Authorized [id number] Closed Auto-Generate d Referral 04/29/2022 05/29/2023 1 1 [facility] for referral (narrative)* Diagnostic Procedure Only (Routine) - Pending Review Specialty Diagnoses / Procedures Referred By Monster t Referred To Contact [facility] Diagnoses Abnormal mammogram Procedures BLAIR DIAGNOSTIC RT DIAGNOSTIC MAMMOGRAPHY COMPUTER-AIDED DETCJ UNI Deven Orta MD [address] [place] [address] [facility] [address] [place] [address] Referral ID Status Reason Start Date Expiration Date Visits Requested Visits Authorized [id number] Pending Review Auto-Generat ed Referral 11/23/2022 06/22/2023 1 1 [facility] for referral (narrative)* Diagnostic Procedure Only (Routine) - Authorized Specialty Diagnoses / Procedures [facility] Diagnoses Breast screening Procedures BLAIR SCREENING W KARISSA SCREENING DIGITAL BREAST TOMOSYNTHESIS BI SCREENING MAMMOGRAPHY BI 2-VIEW BREAST INC CAD PapSotero MD [address] [place] [address] [facility] [address] [place] [address] Referral ID Status Reason Start Date Expiration Date Visits Requested Visits Authorized [id number] Authorized Auto-Generat ed Referral 10/30/2023 11/21/2024 1 1 T [facility] for referral (narrative)* Diagnostic Procedure Only (Routine) - Closed Specialty Diagnoses / Procedures Referred By Contac t Referred To Contact [facility] Diagnoses Breast screening Procedures BLAIR SCREENING W KARISSA SCREENING DIGITAL BREAST TOMOSYNTHESIS BI SCREENING MAMMOGRAPHY BI 2-VIEW BREAST INC CAD PapSotero MD [address] [place] [address] [facility] [address] [place] [address] Referral ID Status Reason Start Date Expiration Date V isits Requested Visits Authorized [id number] Closed Auto-Generate d Referral 10/30/2023 11/21/2024 1 1 T [facility] for visit Narrative* Diagnostic Procedure Only (Routine) - Closed Specialty Diagnoses / Procedures Referred By Contac t Referred To Contact [facility] Diagnoses Encounter for screening mammogram for malignant neoplasm of breast Procedures BLAIR SCREENING SCREENING MAMMOGRAPHY BI 2-VIEW BREAST INC CAD PapSotero MD [address] [place] [address] [facility] [address] [place] [address] Referral ID Status Reason Start Date Expiration Date V isits Requested Visits Authorized [id number] Closed Auto-Generate d Referral 01/31/2022 03/02/2023 1 1 [facility] for visit Narrative* Diagnostic Procedure Only (Routine) - Closed Specialty Diagnoses / Procedures Referred By Contac t Referred To Contact [facility] Diagnoses Abnormal mammogram Procedures US BIOPSY BREAST RT BX BREAST W/DEVICE 1ST LESION ULTRASOUND GUID Deven Orta MD [address] [place] [address] [facility] [address] [place] [address] Referral ID Status Reason Start Date Expiration Date V isits Requested Visits Authorized [id number] Closed Auto-Generate d Referral 04/29/2022 05/29/20[address] [facility] [address] Diagnostic Procedure Only (Routine) - Closed Specialty Diagnoses / Procedures Referred By Monster t Referred To Contact [facility] Diagnoses Breast screening Procedures BLAIR SCREENING W KARISSA SCREENING DIGITAL BREAST TOMOSYNTHESIS BI SCREENING MAMMOGRAPHY BI 2-VIEW BREAST INC CAD Pap, Sotero Langley MD [address] [place] [address] [facility] [address] [place] [address] Referral ID Status Reason Start Date Expiration Date V isits Requested Visits Authorized [id number] Closed Auto-Generate d Referral 10/30/2023 11/21/2024 [address] [facility] Summary Purpose Family History No Family History Records FoundNo Family History Records FoundNo Family History Records FoundNo Family History Records FoundNo Family History Records Found Advance Directives No Advanced Directives Records Found Advance Directive Response Recorded Date/ Time Advance Directives Yes December 17, 2013 12:41am Living Will Yes April 12 10:46am Power of Vascular Manager Yes April 12, 2021 10:46am Advance Directive Response Recorded Date/ Time Advance Directives Yes December 16, 2013 11:41pm Living Will Yes April 12 9:46am Power of Vascular Manager Yes April 12, 2021 9:46am Chief Complaint and Reason for Visit Chief Complaint LT CYSTO, URETEROSCO PY, LASER, STENT CHANGE KIDNEY STONES Reason for Visit Ureteral calculus Chief Complaint LT CYSTO, URETEROSCO PY, LASER, STENT CHANGE KIDNEY STONES Unspecified hydronephrosis Reason for Visit Ureteral calculus Chief Complaint Unspecified hydronep hrosis HYDRONEPHROSIS, HX STONES Chief Complaint Unspecified hydronep hrosis HYDRONEPHROSIS, HX STONES KIDNEY STONES HYDRONEPHROSIS Chief Complaint KIDNEY STONES HYDRON EPHROSIS Health Concerns Infection Onset Date Last Indicated Resolved Time COVID-19 Rule-Out 02/27/2021 02/27/2021 02/27/2021 5:00 PM EST Medications Administered Section Inactive Administered Medications - up to 3 most recent administrations Medication Order MAR Action Action Date Dose Rate Site lidocaine (PF) 20 mg/mL (2 %) injection (XYLOCAINE) SUBCUTANEOUS, X (OR/PROCEDURE) PRN, Starting on Mon05/16/22 at 1401, Until Mon05/16/22 at 1401, Intraprocedure Given 05/16/2022 2:01 PM EDT 9 mL Breast, Right Additional Source Comments INFORMATION SOURCE (unrecogn ized section and content) DATE CREATED AUTHOR 05/28/2020 [facility] DATE CREATED AUTHOR AUTHOR'S ORGANIZ ATION 05/20/2022 [facility] DATE CREATED AUTHOR AUTHOR'S ORGANIZ ATION 11/25/2022 [facility] DATE CREATED AUTHOR AUTHOR'S ORGANIZ ATION 02/18/2024 [facility] DATE CREATED AUTHOR AUTHOR'S ORGANIZ ATION 10/15/2024 [facility] Goals (unrecognized section and content) Goals may be documented in a n alternate sectionGoals may be documented in an alternate sectionGoals may be documented in an alternate sectionGoals may be documented in an alternate sectionGoals may be documented in an alternate sectionGoals may be documented in an alternate sectionGoals may be documented in an alternate section Source Comments (unrecognize d section and content) In the event this informatio n is protected by the Federal Confidentiality of Alcohol and Drug Abuse Patient Records regulations: The Federal rules restrict any use of the information to criminally investigate or prosecute any alcohol or drug abuse patient.[facility] the event this information is protected by the Federal Confidentiality of Alcohol and Drug Abuse Patient Records regulations: The Federal rules restrict any use of the information to criminally investigate or prosecute any alcohol or drug abuse patient.[facility] Hospital[facility] the event this information is protected by the Federal Confidentiality of Alcohol and Drug Abuse Patient Records regulations: The Federal rules restrict any use of the information to criminally investigate or prosecute any alcohol or drug abuse patient.[facility] HospitalIn the event this information is protected by the Federal Confidentiality of Alcohol and Drug Abuse Patient Records regulations: The Federal rules restrict any use of the information to criminally investigate or prosecute any alcohol or drug abuse patient.[facility] Hospital[facility] the event this information is protected by the Federal Confidentiality of Alcohol and Drug Abuse Patient Records regulations: The Federal rules restrict any use of the information to criminally investigate or prosecute any alcohol or drug abuse patient.[facility] Hospital[facility] the event this information is protected by the Federal Confidentiality of Alcohol and Drug Abuse Patient Records regulations: The Federal rules restrict any use of the information to criminally investigate or prosecute any alcohol or drug abuse patient.[facility] HospitalIn the event this information is protected by the Federal Confidentiality of Alcohol and Drug Abuse Patient Records regulations: The Federal rules restrict any use of the information to criminally investigate or prosecute any alcohol or drug abuse patient.[facility] HospitalIn the event this information is protected by the Federal Confidentiality of Alcohol and Drug Abuse Patient Records regulations: The Federal rules restrict any use of the information to criminally investigate or prosecute any alcohol or drug abuse patient.[facility] HospitalIn the event this information is protected by the Federal Confidentiality of Alcohol and Drug Abuse Patient Records regulations: The Federal rules restrict any use of the information to criminally investigate or prosecute any alcohol or drug abuse patient.[facility] HospitalIn the event this information is protected by the Federal Confidentiality of Alcohol and Drug Abuse Patient Records regulations: The Federal rules restrict any use of the information to criminally investigate or prosecute any alcohol or drug abuse patient.[facility] HospitalIn the event this information is protected by the Federal Confidentiality of Alcohol and Drug Abuse Patient Records regulations: The Federal rules restrict any use of the information to criminally investigate or prosecute any alcohol or drug abuse patient.[facility] HospitalIn the event this information is protected by the Federal Confidentiality of Alcohol and Drug Abuse Patient Records regulations: The Federal rules restrict any use of the information to criminally investigate or prosecute any alcohol or drug abuse patient.[facility] HospitalIn the event this information is protected by the Federal Confidentiality of Alcohol and Drug Abuse Patient Records regulations: The Federal rules restrict any use of the information to criminally investigate or prosecute any alcohol or drug abuse patient.[facility] HospitalIn the event this information is protected by the Federal Confidentiality of Alcohol and Drug Abuse Patient Records regulations: The Federal rules restrict any use of the information to criminally investigate or prosecute any alcohol or drug abuse patient.[facility] HospitalIn the event this information is protected by the Federal Confidentiality of Alcohol and Drug Abuse Patient Records regulations: The Federal rules restrict any use of the information to criminally investigate or prosecute any alcohol or drug abuse patient.[facility] HospitalIn the event this information is protected by the Federal Confidentiality of Alcohol and Drug Abuse Patient Records regulations: The Federal rules restrict any use of the information to criminally investigate or prosecute any alcohol or drug abuse patient.[facility] Care Teams (unrecognized sec tion and content) Learning Officer Relationship Specialty Start Date End Date Altaf Rose MD [address] [facility] [place] [address] [place] [address] PCP - General Family Medicine 12/25/17 Learning Officer Relationship Specialty Start Date End Date Altaf Rose MD [address] [facility] [address] [place], [place] [id number] PCP - General Family Medicine 12/25/17 Learning Officer Relationship Specialty Start Date End Date Altaf Rose MD [address] [facility] [address] [place] [address] PCP - General Family Medicine 12/25/17 Learning Officer Relationship Specialty Start Date End Date Altaf Rose MD [address] [facility] [place] [address] [place] [address] PCP - General Family Medicine 12/25/17 Learning Officer Relationship Specialty Start Date End Date Altaf Rose MD [address] [facility] [address] [place] [address] PCP - General Family Medicine 12/25/17 Learning Officer Relationship Specialty Start Date End Date Altaf Rose MD [address] [facility] [address] [place] [address] PCP - General Family Medicine 12/25/17 Learning Officer Relationship Specialty Start Date End Date Altaf Rose MD [address] [facility] [place] [address] [place] [address] PCP - General Family Medicine 12/25/17 Learning Officer Relationship Specialty Start Date End Date Altaf Rose MD [address] [facility] [address] [place] [address] PCP - General Family Medicine 12/25/17 Learning Officer Relationship Specialty Start Date End Date Altaf Rose MD [address] [facility] [place] [address] [place] [address] PCP - General Family Medicine 12/25/17 Learning Officer Relationship Specialty Start Date End Date Altaf Rose MD [address] [facility] [place] [address] [place] [address] PCP - General Family Medicine 12/25/17 Learning Officer Relationship Specialty Start Date End Date Altaf Rose MD [address] [facility] [address] [place] [address] PCP - General Family Medicine 12/25/17 Team Status: Active Member Role Status Dates Dr. Altaf Rose MD Family Provider Active Dr. Altaf Rose MD Primary Care Provider Active Team Status: Inactive Member Role Status Dates Dr. Altaf Rose MD Primary Care Provi carey, Attending Provider, Referring Provider Active Team Status: Inactive Member Role Status Dates Dr. Altaf Rose MD Primary Care Provider Active Dr. Desiree Mcknight MD Attending Provider, Referring P sang Active Learning Officer Relationship Specialty Start Date End Date Altaf Rose MD [address] [facility] [address] [place] [address] PCP - General Family Medicine 12/25/17 Team Status: Inactive Member Role Status Dates Dr. Altaf Rose MD Primary Care Provider, Attending Provider Active Learning Officer Relationship Specialty Start Date End Date Altaf Rose MD [address] [place] [address] [address] [place] [address] PCP - General Family Medicine 12/25/17 Learning Officer Relationship Specialty Start Date End Date Altaf Rose MD [address] [place] [address] [address] [place] [address] PCP - General Family Medicine 12/25/17 Learning Officer Relationship Specialty Start Date End Date Altaf Rose MD [address] [place] [address] [address] [place] [address] PCP - General Family Medicine 12/25/17 Learning Officer Relationship Specialty Start Date End Date Altaf Rose MD [address] [place] [address] [address] [place] [address] PCP - General Family Medicine 12/25/17 Reason for Visit (unrecogniz ed section and content) Reason Comments Well Woman Reason Comments Orders Reason Comments Follow Up US right breast biop sy f/u Reason Comments Results Reason Comments Procedure Ultrasound guided br east biopsy Right Reason Comments Mammogram Result Call Back Reason Comments Consult Right breast, abnorm al mammogram FOR RECORDS PERTAINING TO PATIENTS WHO ARE OR HAVE BEEN ENROLLED IN A CHEMICAL DEPENDENCY/SUBSTANCEABUSE PROGRAM, SOME INFORMATION MAY BE OMITTED. This clinical summary was aggregated from multiple sources. Caution should be exercised in using it in the provision of clinical care. This summary normalizes information from multiple sources, and as a consequence, information in this document may materially change the coding, format and clinical context of patient data. In addition, data may be omitted in some cases. CLINICAL DECISIONS SHOULD BE BASED ON THE PRIMARY CLINICAL RECORDS. [facility] [employer] [facility]. provides no warranty or guarantee of the accuracy or completeness of information in this document.
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
[2024-10-16] MEDS: Lactated Ringers 1,000 ML 15 ML IV (07:35)
--- NOTE | 2024-10-16 07:48 | PRE.ANES_ITS ---
ASA Classification* ASA Classification ASA Classification: 2 Assessment & Plan Anesthesia* Anesthesia Assessment Anesthesia Assessment: Discussed sedation and/or anesthesia options, risks, benefits, and alternatives with patient/parents/legal guardian/POA. Questions invited. The patient/parents/legal guardian/POA seems to understand and agrees to proceed with anesthesia plan. Reviewed the physical assessment, medical history, allergy history and patient home medications list prior to surgery/procedure/anesthetic and documented any changes. Performed airway and anesthesia risk assessments. Anesthesia Type Anesthesia Type: MAC History Source History Obtained from:: Patient, Chart and Significant Other Anesthesia Focused Assessment* Temperature: 97 F Pulse Rate: 57 Blood Pressure: 147/77 Respiratory Rate: 16 Pulse Ox: 97 Oxygen Delivery Method: Room Air Airway Assessment Mouth opens: >3 cm Mallampati Score: II Teeth Condition: Intact Neck Range of motion (ROM): Limited ROM Labs Anesthesia Preop lab: CBC WBC 9.2 K/mm3 (4.4-11.0) 03/10/21 09:12 03/10/21 RBC 3.62 M/mm3 (4.2-5.4) L 03/10/21 09:12 03/10/21 Hgb 10.0 g/dL (12.0-15.0) L 03/10/21 09:12 2 Hct 32.3 % (37-47) L 03/10/21 09:12 03/10/21 Plt Count 590 K/mm3 (150-450) H 03/10/21 09:12 03/10/21 CHEMISTRY Potassium 4.4 mmol/L (3.5-5.1) 02/07/24 10:52 02/07/24 Sodium 140 mmol/L (136-145) 02/07/24 10:52 02/07/24 Magnesium 2.0 mg/dL (1.6-2.6) 10/22/20 13:25 10/22/20 BUN 24 mg/dL (7-18) H 02/07/24 10:52 02/07/24 Creatinine 1.08 mg/dL (0.55-1.02) H 02/07/24 10:52 Glucose 101 mg/dL (74-106) 02/07/24 10:52 12/04/24 POC Glucose 142 mg/dL (70-110) H 11/02/20 06:02 11/02/20 TSH 3.07 uIU/mL (0.358-3.74) 05/31/18 11:00 COAG Pre-Assessment Diagnosis/Proposed Procedure Planned Operative Procedure(s): COLONOSCOPY Anesthesia History Anesthesia History - guidance counselor: Anesthesia History - guidance counselor Hx Hospitalization No 10/16/24 07:32 Any Problems With Anesthesia No 10/16/24 07:32 Cholinesterase deficiency No 10/16/24 07:32 You/Your Family Experience No 10/16/24 07:32 fever (hyperthermia) with Relationship Recent Exposure to Contagious No 10/16/24 07:32 Disease Does patient have nerve No 10/16/24 07:32 stimulator Patient instructed to have device shut off --Does patient have Pacemaker No 10/16/24 07:32 or ICD? When Was Last Pacemaker Check QUESTION #4 FULL TEXT: You/Your Family Experience fever (hyperthermia) with Anesthesia Last Oral Intake Last Oral intake: Last Oral Intake NPO since 20:00 10/16/24 07:32 Meds taken in AM with sips of Yes 10/16/24 07:32 water? Meds patient instructed to take am of surgery PONV PONV - guidance counselor: PONV - guidance counselor Female Yes 10/11/24 10:47 HX of Motion Sickness No 10/11/24 10:47 HX of N/V After Surgery No 10/11/24 10:47 Non-Smoker Yes 10/11/24 10:47 Duration of Surgery greater No 10/11/24 10:47 than 60 minutes Number of Risk Factors 2 10/11/24 10:47 PONV Score Moderate Risk 10/11/24 10:47 Height & Weight Height & Weight: Anesthesia: Height & Weight Height 5 ft 7 in 10/16/24 07:32 Weight: 100 kg 10/16/24 07:32 Body Mass Index (BMI) 34.5 10/16/24 07:32 Respiratory Assessment Respiratory Assessment - guidance counselor: Respiratory Tract Infection Hx - guidance counselor Hx Respiratory Tract Infection No 10/16/24 07:32 STOP Sleep Apnea STOP Sleep Apnea - guidance counselor: STOP Sleep Apnea - guidance counselor Hx Hypertension Yes 10/16/24 07:32 Hx Sleep Apnea No 10/16/24 07:32 CPAP No 10/16/24 07:32 BIPAP No 10/16/24 07:32 Do you snore loudly (louder No 10/16/24 07:32 than talking or can be heard Do you often feel tired/ No 10/16/24 07:32 fatigued/ sleepy during daytime? Has anyone observed you stop No 10/16/24 07:32 breathing during sleep? STOP Results Negative 10/16/24 07:32 QUESTION #5 FULL TEXT : Do you snore loudly (louder than talking or can be heard through closed doors)? Tobacco Use History Tobacco Use History - guidance counselor: Tobacco Use History - guidance counselor Tobacco Use Smoking Status Never smoker 10/16/24 07:32 Hx Tobacco Use No 10/11/24 10:47 Years Smoking Packs Smoked per Day Smoking Cessation Date was within the last 15 years Hx Smoking Cessation Date Hx Smoking Cessation Counseling Hematologic Medial History Hematologic Hx - guidance counselor: Hematologic Medical Hx - firesetter Hx of Blood Transfusion No 10/11/24 10:47 Hx of Transfusion in last 3 No 10/11/24 10:47 Months Date of Last Transfusion (if within last 3 months) Ever experience any problems No 10/11/24 10:47 with transfusion(s)? Specify any problems Hx of Preganancy in last 3 No 10/11/24 10:47 Months Nurse Filling Out Transfusion [facility] 10/11/24 10:47 & Questions: Date: 10/11/24 10/11/24 10:47 Time: 10:55 10/11/24 10:47 Patient unable to answer at this time (ie. confused, unrespo /Reproduction History /Reproductive History - guidance counselor: /Reproductive Hx- guidance counselor Hx Now No 10/16/24 07:32 Gestational Age (in weeks): EDC: Hx Hx Para Hx Section SAB No 10/11/24 10:47 Active Medications Active Medications: Current Medications Generic Name Dose Route Start Last Admin Trade Name Freq PRN Reason Stop Dose Admin Lactated Ringer's 1,000 mls @ 15 mls/hr 10/16/24 07:30 10/16/24 07:35 IV 15 mls/hr .Q48H FABIÁN Administration PFSH Medical History Post-menopausal Bite from insect History of renal disease History of stress test Screening for colon cancer Ureteral calculus Alcohol use Kidney stones Wears glasses Depression Anxiety Arthritis High cholesterol Non-smoker Leg cramps History of pain when walking Hypertension Hx of fracture of leg Home Medications ?Medication ?Instructions ?Recorded ?Last Taken ?Type pravastatin 10 mg tablet 20 mg PO QHS 11/28/13 Unknow n History sertraline 50 mg tablet (Zoloft) 50 mg PO DAILY 12/16/13 08:45 History aspirin 81 mg tablet 81 mg PO DAILY 04/12/21 08/09/27 History lisinopril 10 mg tablet 10 mg PO QDAY 01/21/24 Unkno wn History metoprolol tartrate 25 mg tablet 25 mg PO BID 10/11/24 10/16/24 06:00 History Allergy/AdvReac Type Severity Reaction Status Date / Time Penicillins Allergy Rash Verified 10/16/24 07:31 Family History Other CVA (cerebral vascular accident) Cancer Hypertension Surgical History History of total right knee replacement Hx of tubal ligation Hx of wisdom tooth extraction Hx of breast biopsy Hx of section Hx of melanoma excision History of carpal tunnel release History of total left knee replacement Social History Smoking Status: Never smoker Review of Systems (Anesthesia) ROS Narrative System reviewed and no additional complaints, except as documented.
--- NOTE | 2024-10-16 09:37 | OP.PROVAT_ITS ---
10/16/2024 Altaf De La Garza MD [address] [id number] Re : Colonoscopy procedure for Sara Mercado Dear Dr. De La Garza This procedure was performed on Wednesday, October 16, 2024. My impressions and recommendations are as follows: Impressions : - The entire examined colon is normal on direct and retroflexion views. - No specimens collected. Recommendations : - Discharge patient to home. - Resume previous diet. - Continue present medications. - Repeat colonoscopy in 10 years for screening purposes. - depending on overall health at time of possible repeat My findings are described in the full procedure note, which is enclosed. If I can be of further assistance, please feel free to contact me at Doctor phone number(s): , Work: . Sincerely, MD Vane Fischer MD 10/16/2024 9:37:14 AM This report has been signed electronically.
--- NOTE | 2024-10-16 09:37 | OP.COLON_ITS ---
Patient Name: Sara Mercado Procedure Date: 10/16/2024 9:06 AM Date of : 1955 Age: 69 Procedure: Colonoscopy Indications: Screening for colorectal malignant neoplasm Providers: Vane Varma MD Referring MD: Altaf De La Garza MD Medicines: Monitored Anesthesia Care Patient Profile: This is a 69 year old female. Last Colonoscopy: more than 10 years ago. Complications: No immediate complications. Procedure: Pre-Anesthesia Assessment: - Prior to the procedure, a History and Physical was performed, and patient medications and allergies were reviewed. The patient's tolerance of previous anesthesia was also reviewed. The risks and benefits of the procedure and the sedation options and risks were discussed with the patient. All questions were answered, and informed consent was obtained. Prior Anticoagulants: The patient has taken no anticoagulant or antiplatelet agents except for aspirin. ASA Grade Assessment: Per anesthesia. After reviewing the risks and benefits, the patient was deemed in satisfactory condition to undergo the procedure. After I obtained informed consent, the scope was passed under direct vision. Throughout the procedure, the patient's blood pressure, pulse, and oxygen saturations were monitored continuously. The Colonoscope was introduced through the anus and advanced to the cecum, identified by appendiceal orifice and ileocecal valve. The colonoscopy was performed without difficulty. The patient tolerated the procedure well. The quality of the bowel preparation was good. Scope In: 9:13:05 AM Scope Withdrawal Time 0 hours 7 minutes 5 seconds Scope Out: 9:29:00 AM Total Procedure Duration Time 0 hours 15 minutes 55 seconds Findings: The perianal and digital rectal examinations were normal. The entire examined colon appeared normal on direct and retroflexion views. Impression: - The entire examined colon is normal on direct and retroflexion views. - No specimens collected. Recommendation: - Discharge patient to home. - Resume previous diet. - Continue present medications. - Repeat colonoscopy in 10 years for screening purposes. - depending on overall health at time of possible repeat Procedure Code(s): --- Professional --- G0121, PT, Colorectal cancer screening; colonoscopy on individual not meeting criteria for high risk Diagnosis Code(s): --- Professional --- Z12.11, Encounter for screening for malignant neoplasm of colon CPT copyright 2021 [employer]. All rights reserved. The codes documented in this report are preliminary and upon stockroom selector review may be revised to meet current compliance requirements. MD Vane Fischer MD 10/16/2024 9:37:14 AM This report has been signed electronically. Number of Addenda: 0 Note Initiated On: 10/16/2024 9:06 AM
--- NOTE | 2024-10-16 09:39 | PCM.POST.ANE ---
Anesthesia: Postop Eval I Current Vital Signs Temperature: 97.5 F Pulse Rate: 60 Blood Pressure: 102/68 Respiratory Rate: 16 Pulse Ox: 95 Oxygen Delivery Method: Room Air Assessment Airway patent: Yes Spontaneous unlabored respirations: Yes Mental status: Asleep nausea: No Vomiting: No Anesthesia Complication: No Fluid Hydration Crystalloid volume administer (ml): 500 Total IV fluid infused: 500 Progress Note Anesthesia document: Postop Eval 1 completed: Yes
--- NOTE | 2024-10-16 16:28 | PCM.POSTANE2 ---
Anesthesia Postop Eval I Sum Postop Eval Completion status Anesthesia document: Postop Eval 1 completed: Yes Anesthesia Postop Eval I Summary Anesthesia Postop Eval I Summary: Anesthesia Postop Eval I: Assessment Summary Airway patent Yes 10/16/24 09:40 [email or web address] Spontaneous unlabored Yes 10/16/24 09:40 [email or web address] respirations Mental status Asleep 10/16/24 09:40 [email or web address] nausea No 10/16/24 09:40 [email or web address] Vomiting No 10/16/24 09:40 [email or web address] Anesthesia Postop Eval I: Fluid Summary Crystalloid volume administer 500 10/16/24 09:40 [email or web address] (ml) Colloids volume administered ( ml) Blood Product volume administered (ml) Total IV fluid infused 500 10/16/24 09:40 [email or web address] Anesthesia Postop Eval I: Summary Notes Anesthesia Complication No 10/16/24 09:40 [email or web address] Anesthesia Complication Comment: Post-operative progress note Anesthesia: Postop Eval II Evaluation Mental status: Awake Pain Level: 0 nausea: No Vomiting: No
== END 2024-10-16 10:17 | disposition home or self-care (01) ==
LOC: EN 07:18 → AC 07:19
PROVIDERS: PCP Family Medicine; Referring Provider Family Medicine; Visit Provider Surgery
PROC: 0DJD8ZZ Inspection of Lower Intestinal Tract, Via Natural or Artificial Opening Endoscopic (ICD-10-PCS; CPT 45378; principal; 2024-10-16 08:25)
DX: Z12.11 Encounter for screening for malignant neoplasm of colon (principal); I10 Essential (primary) hypertension; F41.9 Anxiety disorder, unspecified; F32.A Depression, unspecified; E78.00 Pure hypercholesterolemia, unspecified; Z79.82 Long term (current) use of aspirin; Z79.899 Other long term (current) drug therapy
CPT/HCPCS: G0121; J2405

== ENCOUNTER → 2024-12-02 | Outpatient (CLI) | payer MEDICARE, SELFPAY ==
--- OUTSIDE RECORDS SUMMARY | 2024-02-12 11:01 | XMS RPT_ITS ---
Author Name Auto Generated Organization [facility] Care Team Providers Care Civil Cad Designer Name Role Phone PAVAN FLORES Attending Unavailable [facility] ROSE Primary Care Unavailable PROBLEMS DATE TYPE CONDITION / CODE ATTENDING STATUS [facility] 02/12/2024 Active Encounter for an nual routine gynecological examination / Z01.419(ICD-10) PAVAN FLORES Active [facility] 02/12/2024 Active Encounter for Pa panicolaou smear for cervical cancer screening / Z12.4(ICD-10) PAVAN FLORES Active [facility] PROCEDURES No Procedure Records Found RESULTS PAP TEST Collected: 10:32 AM Status: F Source: [facility] Order Comment: Specimen Type : FLUID SPECIMEN Ordering Facility: [facility] Address: [address] [place] [address] TYPE CODE TESTS RESULT OUT OF RANGE REFERENCE UNITS PATHOLOGY [id number] CASE REPORT Result Comment: Gynecologic Cytology Report Case: [id number] Authorizing Provider: Pavan Flores MD Collected: 02/12/2024 10:32 AM Ordering Location: [facility] Obstetrics & Received: 02/12/2024 01:19 PM Gynecology First Screen: Jaz Galdamez CT, ASCP Specimen: Pap Test, ThinPrep, Cervix PATHOLOGY [id number] ADEQUACY Satisfactory for interpretation . PATHOLOGY [id number] INTERPRETATION, CYTOLOGY, FURRIER APPRENTICE Result Comment: Negative for intraepithelial lesion or malignancy. OLOGY [id number] CYTOLOGY PAP OTHER INTERPRETATION Atrophic specimen. PATHOLOGY [id number] CLINICAL HISTORY, CYTOLOGY, FURRIER APPRENTICE Menopausal PATHOLOGY PAPDC PAP DISCLAIMER COMMENT The Pap Smear is a screening test for cervical cancer. False negative results occur with all screening tests, emphasizing the need for rescreening at recommended intervals, and clinical correlation. PATHOLOGY PAPIC PAP CHAIR MENDER COMMENT This specimen has been analyzed by the ThinPrep Imaging System, an automated imaging and review system, which assists the laboratory in evaluating cells on ThinPrep Pap tests. Following automated imaging, selected camacho from every slide are reviewed by a cytotechnologi st. PATHOLOGY [facility] FIN[facility] PERFORMING [facility] Result Comment: Technical co mponent, talent development consultant screening performed at [facility], [address] [place] [address] CLIA# [id number] Diagnostic interpretation performed at [facility], [address] [place] [address] CLIA# [id number] Breaker Up: José Miguel Herrera M.D. Performed By: #### [id number] # ### [facility] CLIA [id number] [address] [place] [address] [place] HISTORY PHYSICAL Observed: 02/12/2024 10:24 AM Status: COMPLETED Source: [facility] HNO ID: [id number] Author: PAVAN FLORES MD Service: ? Author Type: Physician Type: H&P Filed: 02/12/2024 10:30 Note Text: Elo Quach is a 68 year old female who presents for annual exam. No FURRIER APPRENTICE problems. Recent breast biopsy showed fibroadenoma. Complete exam with Dr. Rose last week. Due for pap. ALLERGIES Allergen Reactions Penicillins Current Outpatient Medications Medication Sig calcium carbonate 600 mg-cholecalciferol 400 units 600 mg-10 mcg (400 unit) tab Take 1 tablet by mouth twice daily. lisinopril (ZESTRIL, PRINIVIL) 10 mg tablet Take 10 mg by mouth once daily. aspirin 81 mg chewable tablet Take 1 tablet by mouth once daily. Follow up with pcp for refill recommendations pravastatin sodium (PRAVASTATIN ORAL) Take 20 mg by mouth once daily. metoprolol succinate(TOPROL XL 50 MG 24 HR TAB) Take 50 mg by mouth twice daily. sertraline hcl(ZOLOFT 50 MG TAB) Take one(1) tablet daily. tamsulosin (FLOMAX) 0.4 mg Take 1 capsule by mouth once daily. Follow up with Urology for refills acetaminophen (TYLENOL) 325 mg tablet Take 2 tablets by mouth every 4 hours as needed for fever (specify). (Patient not taking: Reported on 04/26/2022) oxyCODONE-acetaminophen (PERCOCET) 5-325 mg tablet Take 1 tablet by mouth every 4 hours as needed for up to 10 doses. Docosahexanoic Acid-Eicosapent 120-180 mg capsule Take 1,000 mg by mouth. No current facility-administered medications for this visit. Subjective OB History No obstetric history on file. Past Gynecological History: menopausal PAST MEDICAL HISTORY Diagnosis Date Chronic depressive personality disorder Essential hypertension, benign Kidney stone 02/27/2021 Sepsis (HCC) 02/27/2021 PAST SURGICAL HISTORY Procedure Laterality Date ARTHRP KNE CONDYLEANDPLATU MEDIALANDLAT COMPARTMENTS Right BIOPSY BREAST OPEN INCISIONAL Bx of breast, incisional DELIVERY ONLY , low cervical NEUROPLASTY AND/TRANSPOS MEDIAN NRV CARPAL TUNNE Carpal tunnel decomp PAST SURGICAL HISTORY OF melanoma PAST SURGICAL HISTORY OF Left knee replacement Social History Tobacco Use Smoking status: Never Smokeless tobacco: Never Vaping Use Vaping status: Never Used Substance Use Topics Alcohol use: Yes Comment: occ Drug use: Never FAMILY HISTORY Problem Relation Age of Onset Aneurysm Mother Stroke Mother Cancer Father lung Review of Symptoms negative Objective BP 118/74 Pulse 56 Temp 97.4 Wt 224 lb (101.6kg) SpO2 96% Physical Exam - restricted to breast and pelvic exam BREAST: without masses FURRIER APPRENTICE: Vulva - normal, Vagina - normal - cervix parous, Pap done, Uterus - midplane, adnexa neg Assessment -- normal exam RTO one year Pavan Flores MD CNOV Observed: 02/12/2024 10:00 AM Status: COMPLETED Source: [facility] Office Visit (ERNESTINA) ELO QUACH ([id number]) 1955 F Date Time Provider Department 02/12/24 10:00 AM PAVAN FLORES During your visit today, we recorded the following information about you: Temperature Pulse Blood pressure Weight 97.4 degrees 56/minute 118/74 101.6 kg Pavan Flores MD 02/12/2024 10:30 AM Signed Elo Quach is a 68 year old female who presents for annual exam. No FURRIER APPRENTICE problems. Recent breast biopsy showed fibroadenoma. Complete exam with Dr. Rose last week. Due for pap. ALLERGIES Allergen Reactions Penicillins Current Outpatient Medications Medication Sig calcium carbonate 600 mg-cholecalciferol 400 units 600 mg-10 mcg (400 unit) tab Take 1 tablet by mouth twice daily. lisinopril (ZESTRIL, PRINIVIL) 10 mg tablet Take 10 mg by mouth once daily. aspirin 81 mg chewable tablet Take 1 tablet by mouth once daily. Follow up with pcp for refill recommendations pravastatin sodium (PRAVASTATIN ORAL) Take 20 mg by mouth once daily. metoprolol succinate(TOPROL XL 50 MG 24 HR TAB) Take 50 mg by mouth twice daily. sertraline hcl(ZOLOFT 50 MG TAB) Take one(1) tablet daily. tamsulosin (FLOMAX) 0.4 mg Take 1 capsule by mouth once daily. Follow up with Urology for refills acetaminophen (TYLENOL) 325 mg tablet Take 2 tablets by mouth every 4 hours as needed for fever (specify). (Patient not taking: Reported on 04/26/2022) oxyCODONE-acetaminophen (PERCOCET) 5-325 mg tablet Take 1 tablet by mouth every 4 hours as needed for up to 10 doses. Docosahexanoic Acid-Eicosapent 120-180 mg capsule Take 1,000 mg by mouth. No current facility-administered medications for this visit. Subjective OB History No obstetric history on file. Past Gynecological History: menopausal PAST MEDICAL HISTORY Diagnosis Date Chronic depressive personality disorder Essential hypertension, benign Kidney stone 02/27/2021 Sepsis (HCC) 02/27/2021 PAST SURGICAL HISTORY Procedure Laterality Date ARTHRP KNE CONDYLEANDPLATU MEDIALANDLAT COMPARTMENTS Right BIOPSY BREAST OPEN INCISIONAL Bx of breast, incisional DELIVERY ONLY , low cervical NEUROPLASTY AND/TRANSPOS MEDIAN NRV CARPAL TUNNE Carpal tunnel decomp PAST SURGICAL HISTORY OF melanoma PAST SURGICAL HISTORY OF Left knee replacement Social History Tobacco Use Smoking status: Never Smokeless tobacco: Never Vaping Use Vaping status: Never Used Substance Use Topics Alcohol use: Yes Comment: occ Drug use: Never FAMILY HISTORY Problem Relation Age of Onset Aneurysm Mother Stroke Mother Cancer Father lung Review of Symptoms negative Objective BP 118/74 Pulse 56 Temp 97.4 Wt 224 lb (101.6kg) SpO2 96% Physical Exam - restricted to breast and pelvic exam BREAST: without masses FURRIER APPRENTICE: Vulva - normal, Vagina - normal - cervix parous, Pap done, Uterus - midplane, adnexa neg Assessment -- normal exam RTO one year Pavan Flores MD Allergies As of Date: 02/12/2024 Noted Allergy Reaction PENICILLINS 10/11/2007 Date Reviewed: 02/12/2024 Reviewed by: Ekaterina Berrios MA - Fully Assessed Reason for Visit: Well Woman [[id number]] Primary Visit Diagnosis:Encounter for annual routine gynecological examination [Z01.419] Other Visit Diagnosis:Encounter for Papanicolaou smear for cervical cancer screening [Z12.4] Order(s):PAP TEST [[id number]] Order #: [id number] Prescriptions as of 02/12/2024 - calcium carbonate 600 mg-cholecalciferol 400 units 600 mg-10 mcg (400 unit) tab Take 1 tablet by mouth twice daily. - lisinopril (ZESTRIL, PRINIVIL) 10 mg tablet Take 10 mg by mouth once daily. - tamsulosin (FLOMAX) 0.4 mg Take 1 capsule by mouth once daily. Follow up with Urology for refills - aspirin 81 mg chewable tablet Take 1 tablet by mouth once daily. Follow up with pcp for refill recommendations - acetaminophen (TYLENOL) 325 mg tablet Take 2 tablets by mouth every 4 hours as needed for fever (specify). - oxyCODONE-acetaminophen (PERCOCET) 5-325 mg tablet Take 1 tablet by mouth every 4 hours as needed for up to 10 doses. - Docosahexanoic Acid-Eicosapent 120-180 mg capsule Take 1,000 mg by mouth. - pravastatin sodium (PRAVASTATIN ORAL) Take 20 mg by mouth once daily. - metoprolol succinate(TOPROL XL 50 MG 24 HR TAB) Take 50 mg by mouth twice daily. - sertraline hcl(ZOLOFT 50 MG TAB) Take one(1) tablet daily. Problem List As Of Date 02/12/2024 Noted Resolved Abnormality of gait [R26.9] 11/10/2020 Total knee replacement status, right [Z96.651] 11/10/2020 Weakness of right leg [R29.898] 11/10/2020 Stiffness of joint [M25.60] 11/10/2020 Impaired functional mobility, balance, gait, an*11/10/2020 Abnormal posture [R29.3] 12/04/2020 Chest pain [R07.9] 02/27/2021 Ureteral calculus [N20.1] 02/28/2021 Elevated troponin [R79.89] 02/28/2021 Encounter Status:Closed by PAVAN FLORES on 02/12/24 ALLERGIES DATE TYPE / CODE NAME / CODE REACTION SEVERITY SOURCE 10/11/2007 Drug Class/394076475(SNOME D CT) PENICILLINS [facility] ENCOUNTERS ADMIT/DISCHARGE ACCOUNT NUMBER ADMITTING ENCOUNTER CLASS LOC ATION SOURCE 02/12/2024/02/12/2024 [id number] [facility]ERNESTINA [facility] PAYERS ENCOUNTER GUARANTOR PAYER SUBSCRIBER SOURCE 02/12/2024 Primary Insurance:HU[employer]NA MEDICARE PPOPolicy Number: [id number] Date:[id number] Name:Didi LIANGCOMBEDOB: [id number] [place] [address] [facility]
--- OUTSIDE RECORDS SUMMARY | 2024-02-12 11:01 | XMS RPT_ITS ---
Author Name Auto Generated Organization [facility] Care Team Providers Care Production Bow Maker Name Role Phone PAVAN FLORES Attending Unavailable MU ROSE Primary Care Unavailable PROBLEMS DATE TYPE CONDITION / CODE ATTENDING STATUS [facility] 02/12/2024 Active Encounter for an nual routine gynecological examination / Z01.419(ICD-10) PAVAN FLORES Active [facility] 02/12/2024 Active Encounter for Pa panicolaou smear for cervical cancer screening / Z12.4(ICD-10) PAVAN FLORES Active [facility] PROCEDURES No Procedure Records Found RESULTS PAP TEST Collected: 10:32 AM Status: F Source: [facility] Order Comment: Specimen Type : FLUID SPECIMEN Ordering Facility: [facility] Address: [address] [place] [address] TYPE CODE TESTS RESULT OUT OF RANGE REFERENCE UNITS PATHOLOGY [id number] CASE REPORT Result Comment: Gynecologic Cytology Report Case: [id number] Authorizing Provider: Pavan Flores MD Collected: 02/12/2024 10:32 AM Ordering Location: [facility] Obstetrics & Received: 02/12/2024 01:19 PM Gynecology First Screen: Jaz Galdamez CT, ASCP Specimen: Pap Test, ThinPrep, Cervix PATHOLOGY [id number] ADEQUACY Satisfactory for interpretation . PATHOLOGY [id number] INTERPRETATION, CYTOLOGY, HAY FARMER Result Comment: Negative for intraepithelial lesion or malignancy. OLOGY [id number] CYTOLOGY PAP OTHER INTERPRETATION Atrophic specimen. PATHOLOGY [id number] CLINICAL HISTORY, CYTOLOGY, HAY FARMER Menopausal PATHOLOGY PAPDC PAP DISCLAIMER COMMENT The Pap Smear is a screening test for cervical cancer. False negative results occur with all screening tests, emphasizing the need for rescreening at recommended intervals, and clinical correlation. PATHOLOGY PAPIC PAP FORENSIC ANTHROPOLOGIST COMMENT This specimen has been analyzed by the ThinPrep Imaging System, an automated imaging and review system, which assists the laboratory in evaluating cells on ThinPrep Pap tests. Following automated imaging, selected camacho from every slide are reviewed by a cytotechnologi st. PATHOLOGY [facility] FINAL PERFORMING LAB Result Comment: Technical co mponent, bait tier screening performed at [facility], [address] [place] [address] CLIA# [id number] Diagnostic interpretation performed at [facility], [address] [place] [address] CLIA# [id number] Gse Mechanic: José Miguel Herrera M.D. Performed By: #### [id number] # ### [facility] CLIA [id number] [address] [place] [address] [place] HISTORY PHYSICAL Observed: 02/12/2024 10:24 AM Status: COMPLETED Source: [facility] HNO ID: [id number] Author: PAVAN FLORES MD Service: ? Author Type: Physician Type: H&P Filed: 02/12/2024 10:30 Note Text: Elo Quach is a 68 year old female who presents for annual exam. No HAY FARMER problems. Recent breast biopsy showed fibroadenoma. Complete [...] breast and pelvic exam BREAST: without masses HAY FARMER: Vulva - normal, Vagina - normal - cervix parous, Pap done, Uterus - midplane, adnexa neg Assessment -- normal exam RTO one year Pavan Flores MD CNOV Observed: 02/12/2024 10:00 AM Status: COMPLETED Source: [facility] Office Visit (ERNESTINA) ELO QUACH ([id number]) 1955 F Date Time Provider Department 02/12/24 10:00 AM PAVAN FLORES During your visit today, we recorded the following information about you: Temperature Pulse Blood pressure Weight 97.4 degrees 56/minute 118/74 101.6 kg Pavan Flores MD 02/12/2024 10:30 AM Signed Elo Quach is a 68 year old female who presents for annual exam. No HAY FARMER problems. Recent breast biopsy showed fibroadenoma. Complete [...] breast and pelvic exam BREAST: without masses HAY FARMER: Vulva - normal, Vagina - normal - [...] for cervical cancer screening [Z12.4] Order(s):PAP TEST [[id number]] Order #: [id number] Prescriptions as of 02/12/2024 - calcium carbonate [...] / CODE REACTION SEVERITY SOURCE 10/11/2007 Drug Class/066669762(SNOME D CT) PENICILLINS [facility] ENCOUNTERS ADMIT/DISCHARGE ACCOUNT NUMBER ADMITTING ENCOUNTER CLASS LOC ATION SOURCE 02/12/2024/02/12/2024 [id number] [facility]Build [facility]:ERNESTINA [facility] PAYERS ENCOUNTER GUARANTOR PAYER SUBSCRIBER SOURCE 02/12/2024 Primary Insurance:[employer] MEDICARE PPOPolicy Number: [id number] Date:[id number] Name:Didi LIANGCOMBEDOB: [id number] [place] [address] [facility]
--- NOTE | 2024-12-02 10:04 | BI_ITS ---
EXAM: SCRN MAMM (CAD)W/KARISSA BILAT DATE: 12/02/2024 CLINICAL HISTORY: F, Age 69 y/o , SCREENING TECHNIQUE: Procedure Code: BISMWCADBTOM Modality: MG Procedure: SCRN MAMM (CAD)W/KARISSA BILAT COMPARISON: Prior exam(s) dated 11/28/2023, 11/23/2022, 05/16/2022, and 04/20/2022. FINDINGS: TISSUE DENSITY: The breasts are almost entirely fatty. Bilateral Breast Mammographic Findings: No significant masses, calcifications or other abnormalities are identified. Partially obscured stable isodense masses are seen in both breasts. Benign round microcalcifications are seen in both breasts. Benign vascular calcifications, macrocalcifications, and secretory type calcifications are seen in the left breast. BI/SCRN MAMM (CAD)W/KARISSA BILAT IMPRESSION: Benign screening mammogram. OVERALL FINAL ASSESSMENT BI-RADS 2: BENIGN RECOMMENDATION: Routine annual follow-up in 1 Year Additional Recommendation none A letter with findings and recommendations will be mailed to the patient. Reading Location: [id number]
--- NOTE | 2024-12-02 10:04 | BI_ITS ---
EXAM: SCRN MAMM (CAD)W/KARISSA BILAT DATE: 12/02/2024 CLINICAL HISTORY: F, Age 69 y/o , SCREENING TECHNIQUE: Procedure Code: BISMWCADBTOM Modality: MG Procedure: SCRN MAMM (CAD)W/KARISSA BILAT COMPARISON: Prior exam(s) dated 11/28/2023, 11/23/2022, 05/16/2022, and 04/20/2022. FINDINGS: TISSUE DENSITY: The breasts are almost entirely fatty. Bilateral Breast Mammographic Findings: No significant masses, calcifications or other abnormalities are identified. Partially obscured stable isodense masses are seen in both breasts. Benign round microcalcifications are seen in both breasts. Benign vascular calcifications, macrocalcifications, and secretory type calcifications are seen in the left breast. BI/SCRN MAMM (CAD)W/KARISSA BILAT IMPRESSION: Benign screening mammogram. OVERALL FINAL ASSESSMENT BI-RADS 2: BENIGN RECOMMENDATION: Routine annual follow-up in 1 Year Additional Recommendation none A letter with findings and recommendations will be mailed to the patient. Reading Location: [id number]
== END | disposition home or self-care (01) ==
LOC: OPBI 10:03
PROVIDERS: PCP Family Medicine; Referring Provider Family Medicine; Visit Provider Family Medicine
DX: Z12.31 Encounter for screening mammogram for malignant neoplasm of breast (principal)
CPT/HCPCS: 77063; 77067

== ENCOUNTER → 2025-02-10 | Outpatient (CLI) | payer MEDICARE, SELFPAY ==
[2025-02-10 12:57] LABS: AST(SGOT) 18 U/L (<=31); Alanine Aminotransfer ALT/SGPT 14 U/L (<=34); Albumin, Serum 4.1 g/dL (3.4-4.8); Alkaline Phosphatase 98 U/L (35-104); Anion Gap 9 (5-15); BUN 21 mg/dL (4-19); BUN/Creat Ratio 19.7 RATIO (10-20); Calcium,Total 10.1 mg/dL (7.6-11.0); Carbon Dioxide 26.1 mmol/L (21.0-32.0); Chloride 104 mmol/L (98-108); Cholesterol 207 mg/dL (<=200); Globulin 2.7 g/dL (2.2-4.2); Glucose 101 mg/dL (70-99); Low Density Lipoprotein Calc. 90 mg/dL; Potassium 4.6 mmol/L (3.3-5.1); Triglycerides 92 mg/dL; Very Low Density Lipoprotein 18 mg/dL (5-40); cholesterol:hdl ratio screen 2.05
== END | disposition home or self-care (01) ==
LOC: MFPLAB 11:03
PROVIDERS: PCP Family Medicine; Visit Provider Family Medicine
DX: I10 Essential (primary) hypertension (principal)
CPT/HCPCS: 36415; 80053; 80061